=== PATIENT | female | born 1960 | race Caucasian/White ===

== ENCOUNTER 2023-08-18 09:29 | Emergency (ER) | payer BC, SELFPAY ==
[2023-08-18 09:46] VITALS: BP 146/95
--- NOTE | 2023-08-18 12:20 | ED.GENMED ---
History of Present Illness
General
Chief Complaint: Headache
Source: patient
Exam Limitations: none
Time Seen by Provider: 08/18/23 12:04
Nursing documentation reviewed up to this point in time: agreed with
Travel History
Have you had any contact with someone who has COVID-19?: No
Do you have any symptoms of coronavirus? Fever > 100 degrees, chills, cough, shortness of breath, sore throat, loss of taste or smell, muscle aches, or headache?: No
History of Present Illness
History of Present Illness:
Patient to ED wt complaint of migraine. Typical migraine except it is lasting longer. Tried her migraine meds at home without relief. Saw Neuro on Wednesday and she was given 'nerve block' into forehead without improvement. States she hd a
risotomy of her L3, L4 on wednesday. Still with pain to low back. Denies fever/chills, +n/v. Brought to ED by spouse for jing.
Past History
Past History
ED Past Medical History: Hypercholesterolemia and Other (Migraines, kidney stones, chronic back pain)
ED Past Surgical History:
Social History
Tobacco: Non-smoker
Alcohol: None
Drug: None
Personal:
Living: with family
Employment: Employed
Family History
Family History: Hypertension
Review of Systems
Review of Systems
Allergies reviewed?: Yes
All Other Systems: ROS reviewed and negative except as documented in HPI and ROS
Constitutional: Reports no symptoms
EENT: Reports no symptoms
Respiratory: Reports no symptoms
Cardiac: Reports no symptoms
ABD/GI: Reports nausea and vomiting
: Reports no symptoms
Musculoskeletal: Reports back pain (chronic low back pain. Had risotomy on Wednesday, still with pain.)
Skin: Reports no symptoms
Neurological: Reports no symptoms (migraine)
Phy Exam
General Physical Exam
General Presentation: well appearing and moderate distress
General age: appears stated age
General Skin: warm and dry
General Habitus: normal
General Mental: alert
Cardiovascular Exam
Cardiovascular Exam: regular rate/rhythm
Pulmonary Exam
Pulmonary Exam: lungs clear and no respiratory distress
Gastrointestinal Exam
Gastrointestinal Exam: normal bowel sounds, non tender, soft and no organomegaly
Neurological Exam
Neurological Exam: alert, oriented x3, CN II-XII intact, no motor deficits, no sensory deficits and speech normal
Reflexes
Reflexes: +3: Left patellar and +3: Right patellar
Musculoskeletal Exam
Musculoskeletal Exam: back pain (Pain with movement to low bck. History of chronic low back pain) and neuro vasc intact
Skin Exam
Skin Exam: normal color, warm/dry, no rash and other (Risotomy to lumbar region. NO redness swelling tenderness to touch.)
Psychiatric Exam
Psychiatric Exam: normal mood/affect
Course
Orders/Labs/Results
Orders:
Orders
08/18/23 12:07
Complete Blood Count/With Diff Urgent
Comprehensive Metabolic Panel Urgent
Lipase Urgent
08/18/23 12:16
0.9% Sodium Chloride 1000 ml [Nss] 1,000 ml IV BOLUS
Ketorolac [Toradol] 30 mg IV NOW STA
08/18/23 12:19
HYDROmorphone [Dilaudid] 0.5 mg IV NOW STA
08/18/23 12:20
Ondansetron Injectable [Zofran] 4 mg IV NOW STA
08/18/23 14:12
Acetaminophen 1000MG/100Ml [Ofirmev] 1,000 mg in 100 ml IV ONCE
Acetaminophen IV Indication:: No MN & No Enteral Access
08/18/23 15:12
Urinalysis Reflex To Culture Urgent
Date Specimen was Collected: 08/18/23
Time Specimen was Collected: 15:05
08/18/23 15:44
HYDROmorphone [Dilaudid] 0.05 mg IV NOW STA
08/18/23 15:48
HYDROmorphone [Dilaudid] 0.5 mg IV NOW STA
08/18/23 16:23
CT Head W/o Iv Contrast Urgent
Comment:
Reason For Exam: head pain
Dexamethasone Sod Phosphate [Decadron] 10 mg IV NOW STA
Abnormal Lab Results
08/18/23 08/18/23
12:07 15:12
WBC 14.9 H 10^3/uL
(4.8-10.8)
Hgb 17.2 H g/dL
(12.0-16.0)
Hct 47.9 H %
(37.0-47.0)
MCH 32.6 H pg
(27.0-31.0)
MPV 11.0 H fL
(7.4-10.4)
Abs Immat Gran (auto) 0.1 H 10^3/uL
(0-0.05)
Absolute Neuts (auto) 12.1 H 10^3/uL
(1.4-6.5)
Absolute Monos (auto) 1.3 H 10^3/uL
(0.1-0.6)
Neutrophils % 81.2 H %
(42.2-75.2)
Lymphocytes % 9.0 L %
(20.5-51.1)
Sodium 133 L mmol/L
(135-145)
Potassium 3.1 L mmol/L
(3.5-5.1)
Chloride 96 L mmol/L
(98-107)
BUN 29 H mg/dl
(7-17)
Glucose 133 H mg/dl
(70-99)
Total Bilirubin 2.4 H mg/dl
(0.2-1.3)
Urine Ketones Trace A
(Negative)
Urine Bilirubin 1+ A
(Negative)
08/18/23 12:07
08/18/23 12:07
Vital Signs
Initial and Last Documented VS:
Initial Vital Signs
Temp Pulse Resp BP Pulse Ox
98.3 F 59 18 146/95 99
08/18/23 09:46 08/18/23 09:46 08/18/23 09:46 08/18/23 09:46 08/18/23 09:46
Last Documented Vital Signs
Temp Pulse Resp BP Pulse Ox
98.3 F 55 16 142/77 99
08/18/23 09:46 08/18/23 17:00 08/18/23 17:00 08/18/23 17:00 08/18/23 17:00
*Radiology
Radiology exam reviewed: radiology read reviewed
*Pulse Oximetry
Patient hypoxic: no
*Critical Care Note
Total Time (30-74mins, 75-104mins- exclusive of procedures): Not Applicable
Update Note
Update Note:
Improved iwth IVF, pain meds. SHe is discharged home and will follow up with pain management in AM
ED Attending Note
-
Portions of this chart may have been created with voice recognition software.� Occasional wrong word or��sound alike� substitutions may have occurred due to the inherent limitations of voice recognition software.
Discharge Plan
Departure
Patient Disposition: Home (Routine Discharge)
Date of Disposition: 08/18/23
Time of Disposition: 18:35
Patient with high blood pressure during this ER visit?: No
Condition: Good
Covid-19: Not Applicable
Discharge Problem:
Migraine
Instructions: Migraines (DC)
Prescriptions:
New
oxycodone-acetaminophen [Percocet] 5-325 mg tablet
1 - 2 tab PO Q4HPRN PRN (Reason: pain) Qty: 15 0RF
No Action
cetirizine 10 MG tablet
10 mg PO HS
sumatriptan succinate [Imitrex STATdose Pen] 4 MG/0.5 ML pen injector
4 mg SQ DAILYPRN PRN (Reason: headache)
Patient Comments:
alternates with maxalt business specialist
rizatriptan [Maxalt-ASSISTANT FINANCIAL ACCOUNTANT] 10 MG tablet,disintegrating
10 mg PO DAILYPRN PRN (Reason: headaches)
Patient Comments:
alternates with imitrex
levocetirizine [Xyzal] 5 MG tablet
5 mg PO HS
cholecalciferol (vitamin D3) [Vitamin D3] 2,000 UNIT capsule
2,000 unit PO QPM
ondansetron 4 MG tablet,disintegrating
4 mg PO TIDPRN PRN (Reason: nausea/vomiting) Qty: 12 0RF
tramadol 50 MG tablet
50 mg PO Q8H PRN (Reason: moderate pain)
Patient Comments:
08/18/2023: last filled 07/03/23, 36 tabs for 12 days from [facility]#[id number]
diazepam 2 MG tablet
4 mg PO HS
Patient Comments:
08/18/2023: last filled 07/16/23, 60 tabs for 30 days from [facility]#[id number]
atorvastatin [Lipitor] 20 mg Tablet
20 mg PO HS
dihydroergotamine 1 mg/mL Solution
1 mg IM DAILYPRN PRN (Reason: mirgraines)
budesonide 0.5 mg/2 mL suspension for nebulization
0.5 mg inhalation R BIDPRN PRN (Reason: sob)
Aimovig Autoinjector 140 mg/mL auto-injector
140 mg SC DAILYPRN PRN (Reason: mirgraines)
prednisone 20 mg tablet
20 mg PO .TAPER
Rx Instructions:
3 tabs (60mg) daily x 2 days, 2 tabs (40mg) daily x 2 days, 1 tab (20mg) daily x 2 days
oxycodone-acetaminophen 10-325 mg tablet
1 tab PO 5/D PRN (Reason: moderate pain)
Patient Comments:
08/18/2023: last filled 07/20/23, 150 tabs for 30 days from [facility]#[id number]
propranolol 80 mg capsule,extended release 24hr
400 mg PO HS
albuterol sulfate 90 mcg/actuation HFA aerosol inhaler
2 puff INHALATION R Q4 PRN (Reason: sob/wheezing)
Nurtec ODT 75 mg tablet,disintegrating
75 mg PO DAILY PRN (Reason: migraine)
ibuprofen 200 mg tablet
800 mg PO DAILY PRN (Reason: mild pain)
Referrals:
Jonathon Hall MD [Family Provider] - Tomorrow
Interventions
Interventions:
*Risk Screen - Suicide Last Done: 08/18/23 09:46
*General Assessment Last Done: 08/18/23 19:06
*Neglect/Abuse Screening Last Done: 08/18/23 09:46
*ED COVID-19 Vaccine History Last Done: 08/18/23 09:46
*Nursing Disposition Last Done: 08/18/23 19:06
ED- Neurological Assessment Last Done: 08/18/23 12:08
Discharge Date and Time
Discharge Date/Time: 08/18/23 19:06
[2023-08-18 12:27] LABS: % Basophils 0.1 % (0-2); % Eosinophils 0.2 % (0-6); % Immature Granulocytes 0.5 % (0-0.5); % Neutrophils 81.2 % (42.2-75.2); Absolute Immature Granulocytes 0.1 10^3/uL (0-0.05); Absolute Lymphocytes 1.3 10^3/uL (1.2-3.4); Absolute Monocytes 1.3 10^3/uL (0.1-0.6); Absolute Neutrophils 12.1 10^3/uL (1.4-6.5); Hematocrit 47.9 % (37.0-47.0); Hemoglobin 17.2 g/dL (12.0-16.0); Mean Corp Hgb Conc. 35.9 g/dL (33.0-37.0); Mean Corpuscular Hgb 32.6 pg (27.0-31.0); Mean Corpuscular Volume 90.9 fL (81.0-99.0); Nucleated Red Blood Cells % 0 %; Platelet Count 342 10^3/uL (130-400); Red Blood Cell Count 5.27 10^6/uL (4.20-5.40); Red Cell Dist. Width 11.7 % (11.5-14.5); White Blood Cell Count 14.9 10^3/uL (4.8-10.8)
[2023-08-18] MEDS: NSS 1000 IV (12:37)
[2023-08-18] MEDS: ZOFRAN 4 MG IV (12:38)
[2023-08-18] MEDS: TORADOL 30 MG IV (12:38)
[2023-08-18] MEDS: DILAUDID 0.5 MG IV ×2 (12:38→15:51)
[2023-08-18 12:41] LABS: ALT (SGPT) 21 U/L (0-35); AST (SGOT) 17 U/L (14-36); Albumin 4.4 g/dl (3.5-5.0); Alkaline Phosphatase 98 U/L (38-126); Blood Urea Nitrogen 29 mg/dl (7-17); Calcium 9.1 mg/dl (8.4-10.2); Carbon Dioxide 30 mmol/L (22-30); Chloride 96 mmol/L (98-107); Glucose 133 mg/dl (70-99); Lipase 213 U/L (23-300); Potassium 3.1 mmol/L (3.5-5.1); Sodium 133 mmol/L (135-145); Total Bilirubin 2.4 mg/dl (0.2-1.3); Total Protein 7.1 g/dl (6.3-8.2); eGFR > 60.00
[2023-08-18] MEDS: OFIRMEV 100 IV (14:28)
[2023-08-18 15:39] LABS: Urine Albumin Trace (Neg - Trace); Urine Bilirubin 1+ (Negative); Urine Character Clear (Clear); Urine Color Yellow; Urine Glucose Negative (Negative); Urine Ketone Trace (Negative); Urine Leukocyte Negative (Negative); Urine Nitrite Negative (Negative); Urine Occult Blood Negative (Negative); Urine Specific Gravity 1.015 (<1.030); Urine Urobilinogen 1+ (Neg - 1+)
[2023-08-18 17:00] VITALS: BP 142/77
[2023-08-18] MEDS: DECADRON 10 MG IV (17:01)
== END 2023-08-18 19:06 | disposition home or self-care (01) ==
LOC: EMR 09:29
PROVIDERS: Nurse Practitioner; EMERGENCY PHYSICIAN Emergency Medicine; FAMILY PHYSICIAN Family Medicine; OTHER PHYSICIAN Psychiatry & Neurology Neuromuscular Medicine
DX: G43.909 Migraine, unspecified, not intractable, without status migrainosus (principal)
CPT/HCPCS: 99284; 96374; 96375 ×4; 96361; 96376; 70450; 80053; 81003; 83690; 85025

== ENCOUNTER 2023-10-29 02:29 | Inpatient (IN) | payer BC, SELFPAY ==
[2023-10-28 18:20] VITALS: BP 186/135
[2023-10-28 18:34] LABS: % Basophils 0.4 % (0-2); % Immature Granulocytes 0.2 % (0-0.5); % Lymphocytes 10.2 % (20.5-51.1); % Monocytes 7.9 % (1.7-9.3); % Neutrophils 79.3 % (42.2-75.2); Absolute Basophils 0.1 10^3/uL (0-0.2); Absolute Eosinophils 0.3 10^3/uL (0-0.7); Absolute Lymphocytes 1.3 10^3/uL (1.2-3.4); Absolute Neutrophils 10.1 10^3/uL (1.4-6.5); Hematocrit 39.2 % (37.0-47.0); Hemoglobin 13.7 g/dL (12.0-16.0); Mean Corp Hgb Conc. 34.9 g/dL (33.0-37.0); Mean Corpuscular Hgb 32.2 pg (27.0-31.0); Mean Platelet Volume 9.5 fL (7.4-10.4); Nucleated Red Blood Cells % 0 %; Platelet Count 355 10^3/uL (130-400); Red Blood Cell Count 4.26 10^6/uL (4.20-5.40); Red Cell Dist. Width 11.9 % (11.5-14.5); White Blood Cell Count 12.8 10^3/uL (4.8-10.8)
[2023-10-28 18:49] LABS: ALT (SGPT) 40 U/L (0-35); AST (SGOT) 32 U/L (14-36); Albumin 4.2 g/dl (3.5-5.0); Alkaline Phosphatase 168 U/L (38-126); Blood Urea Nitrogen 21 mg/dl (7-17); Carbon Dioxide 26 mmol/L (22-30); Chloride 97 mmol/L (98-107); Glucose 175 mg/dl (70-99); Potassium 3.8 mmol/L (3.5-5.1); Sodium 136 mmol/L (135-145); Total Bilirubin 0.7 mg/dl (0.2-1.3); Total Protein 7.3 g/dl (6.3-8.2); eGFR > 60.00
[2023-10-28 19:00] LABS: Lipase 47 U/L (23-300)
[2023-10-28 19:01] LABS: Troponin I < 0.012 ng/ml
--- NOTE | 2023-10-28 20:43 | ED.GENMED ---
History of Present Illness
<Hortencia Loredo PA-C - Last Filed: 10/29/23 00:55>
General
Chief Complaint: Chest Pain
Source: patient
Exam Limitations: none
Time Seen by Provider: 10/28/23 19:58
Nursing documentation reviewed up to this point in time: agreed with
Travel History
Have you had any contact with someone who has COVID-19?: No
Do you have any symptoms of coronavirus? Fever > 100 degrees, chills, cough, shortness of breath, sore throat, loss of taste or smell, muscle aches, or headache?: No
History of Present Illness
History of Present Illness:
Patient is a 63-year-old female with history of migraines, kidney stones presenting for evaluation of acute onset right upper quadrant abdominal pain. Symptoms presented around 5 PM this evening and have been constant since. Patient describes a
sharp pain in her right upper quadrant wrapping around to her mid back with some radiation to her right shoulder. Patient states pain is significantly worse with deep breaths. This pain has been associated with nausea, but no vomiting. She denies
any fever, chills, urinary symptoms.
Patient denies any recent travel or recent surgeries. Patient has a history of 2 C-sections, but otherwise no other abdominal surgeries.
Patient reports the symptoms appear much different than prior kidney stones
Past History
<Hortencia Loredo PA-C - Last Filed: 10/29/23 00:55>
Past History
ED Past Medical History: Hypercholesterolemia and Other (Migraines, kidney stones, chronic back pain)
ED Past Surgical History:
Social History
Tobacco: Non-smoker
Alcohol: None
Drug: None
Personal:
Living: with family
Employment: Employed
Family History
Family History: Hypertension
Phy Exam
<Hortencia Loredo PA-C - Last Filed: 10/29/23 00:55>
Physical Exam
Physical Exam:
General: In moderate distress due to pain, nontoxic appearing
Vitals: Hypertensive, otherwise vital signs stable; afebrile
HEENT: Atraumatic, normocephalic protecting airway
Neck: appears supple, trachea midline
CV: Regular rate and rhythm, heart sounds normal, no evidence of cyanosis
Resp: Shallow breaths due to discomfort, clear bilaterally without any wheezing; O2 saturation 97 on room
Abd: Moderate tenderness right upper quadrant; non-distended; no CVA tenderness
Extremities: No deformities, no evidence of cyanosis or edema; DP pulses palpable bilaterally
Neuro: alert and oriented; grossly intact
Psych: Normal affect
Skin: Intact, no rashes
Scores
<Hortencia Loredo PA-C - Last Filed: 10/29/23 00:55>
Heart Score for Chest Pain Patients
STEMI patient?: No
History: Slightly or Non-Suspicious
ECG: Normal
Age: >45 - <65 years
Risk Factors: No Risk Factors
Troponin: </= Normal Limit
Heart Score for Chest Pain Patients: 1
Heart Score Risk: 2.5% MACE over next 6 weeks
Course
<Hortencia Loredo PA-C - Last Filed: 10/29/23 00:55>
Orders/Labs/Results
Orders:
Orders
10/28/23 18:16
EKG [Electrocardiogram (*1)] Urgent
Reason for Study: Chest Pain
EKG- Treatment ONCE
10/28/23 18:28
CBC/With Diff [Complete Blood Count/With Diff] Urgent
CMP [Comprehensive Metabolic Panel] Urgent
Lipase Urgent
Troponin I Urgent
10/28/23 20:38
0.9% Sodium Chloride 1000 ml [Nss] 1,000 ml IV BOLUS
Ketorolac [Toradol] 15 mg IV NOW STA
Ondansetron Injectable [Zofran] 4 mg IV NOW STA
US Abdomen Complete/Upper Urgent
Comment:
Reason For Exam: Right upper quadrant pain
10/28/23 20:46
Urinalysis Reflex To Culture Urgent
Date Specimen was Collected: 10/28/23
Time Specimen was Collected: 20:45
Urine Microscopic Reflex Cult Urgent
10/28/23 21:40
HYDROmorphone [Dilaudid] 0.5 mg IV NOW STA
10/28/23 22:02
CT Chest/abd/pelvis Angio W/wo Urgent
Comment: US negative; discussed with attending
Reason For Exam: sharp, pleuritic pain RUQ radiation to back
10/28/23 23:58
Azithromycin 500 mg/250 ml [Zithromax Infusion] 500 mg in 250 ml IV NOW
CefTRIAXone [Rocephin] 1,000 mg IV NOW STA
HYDROmorphone [Dilaudid] 0.5 mg IV NOW STA
10/29/23 00:24
Electrocardiogram (*1) Urgent
Reason for Study: QTc Monitoring
10/29/23 00:28
Ondansetron Injectable [Zofran] 4 mg .ROUTE .STK-MED ONE
Ondansetron Injectable [Zofran] 4 mg IV NOW STA
Abnormal Lab Results
10/28/23 10/28/23
18:28 20:46
WBC 12.8 H 10^3/uL
(4.8-10.8)
MCH 32.2 H pg
(27.0-31.0)
Absolute Neuts (auto) 10.1 H 10^3/uL
(1.4-6.5)
Absolute Monos (auto) 1.0 H 10^3/uL
(0.1-0.6)
Neutrophils % 79.3 H %
(42.2-75.2)
Lymphocytes % 10.2 L %
(20.5-51.1)
Chloride 97 L mmol/L
(98-107)
BUN 21 H mg/dl
(7-17)
Glucose 175 H mg/dl
(70-99)
ALT 40 H U/L
(0-35)
Alkaline Phosphatase 168 H U/L
(38-126)
Urine Ketones Trace A
(Negative)
Urine Bilirubin 1+ A
(Negative)
Leukocyte Esterase Rfl Trace A
(Negative)
Urine Bacteria (Reflex) Few A
(Negative)
10/28/23 18:28
10/28/23 18:28
Vital Signs
Initial and Last Documented VS:
Initial Vital Signs
Temp Pulse Resp BP Pulse Ox
97.9 F 71 17 186/135 97
10/28/23 18:20 10/28/23 18:20 10/28/23 18:20 10/28/23 18:20 10/28/23 18:20
Last Documented Vital Signs
Temp Pulse Resp BP Pulse Ox
100.2 F 96 18 157/88 95
10/28/23 23:56 10/28/23 23:56 10/28/23 23:56 10/28/23 23:56 10/28/23 23:56
<Carlos Clement DO - Last Filed: 10/28/23 21:08>
Orders/Labs/Results
Orders:
Orders
10/28/23 18:16
EKG [Electrocardiogram (*1)] Urgent
Reason for Study: Chest Pain
EKG- Treatment ONCE
10/28/23 18:28
CBC/With Diff [Complete Blood Count/With Diff] Urgent
CMP [Comprehensive Metabolic Panel] Urgent
Lipase Urgent
Troponin I Urgent
10/28/23 20:38
0.9% Sodium Chloride 1000 ml [Nss] 1,000 ml IV BOLUS
Ketorolac [Toradol] 15 mg IV NOW STA
Ondansetron Injectable [Zofran] 4 mg IV NOW STA
US Abdomen Complete/Upper Urgent
Comment:
Reason For Exam: Right upper quadrant pain
10/28/23 20:46
Urinalysis Reflex To Culture Urgent
Date Specimen was Collected: 10/28/23
Time Specimen was Collected: 20:45
Urine Microscopic Reflex Cult Urgent
10/28/23 21:40
HYDROmorphone [Dilaudid] 0.5 mg IV NOW STA
10/28/23 22:02
CT Chest/abd/pelvis Angio W/wo Urgent
Comment: US negative; discussed with attending
Reason For Exam: sharp, pleuritic pain RUQ radiation to back
10/28/23 23:58
Azithromycin 500 mg/250 ml [Zithromax Infusion] 500 mg in 250 ml IV NOW
CefTRIAXone [Rocephin] 1,000 mg IV NOW STA
HYDROmorphone [Dilaudid] 0.5 mg IV NOW STA
10/29/23 00:24
Electrocardiogram (*1) Urgent
Reason for Study: QTc Monitoring
10/29/23 00:28
Ondansetron Injectable [Zofran] 4 mg .ROUTE .STK-MED ONE
Ondansetron Injectable [Zofran] 4 mg IV NOW STA
Abnormal Lab Results
10/28/23 10/28/23
18:28 20:46
WBC 12.8 H 10^3/uL
(4.8-10.8)
MCH 32.2 H pg
(27.0-31.0)
Absolute Neuts (auto) 10.1 H 10^3/uL
(1.4-6.5)
Absolute Monos (auto) 1.0 H 10^3/uL
(0.1-0.6)
Neutrophils % 79.3 H %
(42.2-75.2)
Lymphocytes % 10.2 L %
(20.5-51.1)
Chloride 97 L mmol/L
(98-107)
BUN 21 H mg/dl
(7-17)
Glucose 175 H mg/dl
(70-99)
ALT 40 H U/L
(0-35)
Alkaline Phosphatase 168 H U/L
(38-126)
Urine Ketones Trace A
(Negative)
Urine Bilirubin 1+ A
(Negative)
Leukocyte Esterase Rfl Trace A
(Negative)
Urine Bacteria (Reflex) Few A
(Negative)
10/28/23 18:28
10/28/23 18:28
Vital Signs
Initial and Last Documented VS:
Initial Vital Signs
Temp Pulse Resp BP Pulse Ox
97.9 F 71 17 186/135 97
10/28/23 18:20 10/28/23 18:20 10/28/23 18:20 10/28/23 18:20 10/28/23 18:20
Last Documented Vital Signs
Temp Pulse Resp BP Pulse Ox
100.2 F 96 18 157/88 95
10/28/23 23:56 10/28/23 23:56 10/28/23 23:56 10/28/23 23:56 10/28/23 23:56
<Hortencia Loredo PA-C - Last Filed: 10/29/23 00:55>
MDM/Problems Addressed
Differential Diagnosis Includes:
Cholecystitis, cholelithiasis, choledocholithiasis, cholangitis, nephrolithiasis, doubt PE or ACS
MDM/Problems Addressed:
Patient is 63-year-old female presenting with acute onset right upper quadrant pain with radiation to the back associate with nausea. Pain worse with deep breath. No fever, chills, urinary symptoms, chest pain. Patient is hypertensive�likely due
to pain. Otherwise vital signs are stable, she is afebrile. Exam as above. Patient is significant distress, retching on initial examination. She is moderately tender in the right upper quadrant without any rebound or guarding. Heart rate
regular. Patient taking very shallow breaths due to pain but otherwise clear without any wheezing. Will check basic labs, urinalysis. Will start with abdominal ultrasound�is most suspicious for acute gallbladder pathology. Will start with
Toradol, Zofran. IV fluids
Labs noted. Very mild leukocytosis of 12.8, otherwise signs of mild dehydration. There is minor elevations in ALT and Alk phos. Initial troponin is negative. Lipase normal. Urine shows no signs of infection or blood. Ultrasound pending.
Into reassess patient at bedside. She is still reporting significant amount of pain. Will give 0.5 Dilaudid.
Ultrasound shows no evidence of gallstones, cholecystitis, or other intra-abdominal pathology. Given patient's significant level of discomfort on arrival�will check CTA chest, abdomen, pelvis to rule out any evidence of blood clot, dissection,
other emergent pathology.
CTA shows findings consistent with a right lower lobe pneumonia and associated right parapneumonic pleural effusion. Patient still with significant discomfort and requiring Dilaudid for pain. At this point feel is best to admit patient to
hospitalist for IV antibiotics and pain control. Discussed with hospitalist. Discussed. Patient mated to hospitalist for further management.
Chronic conditions affecting care:
N/A
Acute Exacerbation and/or Progression of Chronic Illness:
N/A
<Hortencia Loredo PA-C - Last Filed: 10/29/23 00:55>
*Radiology
Radiology exam reviewed: preliminary read by ED provider and radiology read reviewed
*Pulse Oximetry
Patient hypoxic: no
*EKG
Interpreted by ED Provider?: Yes
EKG Intrepretation Date: 10/29/23
Interpretation: normal
Rate: normal
Rhythm: sinus
Interval: normal QT interval
Ischemia: no ischemia
*Engineering Drafter Interpretation
Rate: Engineering Drafter- N/A
*Critical Care Note
Total Time (30-74mins, 75-104mins- exclusive of procedures): Not Applicable
<Hortencia Loredo PA-C - Last Filed: 10/29/23 00:55>
Patient Management
Discussion with other providers: Hospitalist
ED Attending Note
<Hortencia Loredo PA-C - Last Filed: 10/29/23 00:55>
-
Portions of this chart may have been created with voice recognition software.� Occasional wrong word or��sound alike� substitutions may have occurred due to the inherent limitations of voice recognition software.
<Carlos Clement DO - Last Filed: 10/28/23 21:08>
ED Attending Note
Patient seen and examined by attending physician: Yes
I performed the substantive portion of visit, reviewed & personally made and approve the management plan that is documented in note by myself or CARLTON.: Yes
I performed a history and physical exam of patient and discussed management with resident, I reviewed resident's note and agree with documented findings and plan of care.: Yes
ED Attending Note:
The patient's pain is primarily localized to the right upper quadrant but does radiate in towards the back/shoulder. Mild leukocytosis noted, she appears uncomfortable. Mild ALT elevation and alk phos is 168 but total bili is normal. Lipase is
normal. She was given Toradol initially but remains to appear uncomfortable. Ultrasound imaging pending.
Discharge Plan
Departure
Patient Disposition: Admit
Date of Disposition: 10/28/23
Time of Disposition: 23:50
Presentation/result/management discussed w/ accepting MD/DO: Hospitalist
Discharge Problem:
Right lower lobe pneumonia
Prescriptions:
No Action
cetirizine 10 MG tablet
10 mg PO HS
sumatriptan succinate [Imitrex STATdose Pen] 4 MG/0.5 ML pen injector
4 mg SQ DAILYPRN PRN (Reason: headache)
Patient Comments:
alternates with maxalt sales agent casualty insurance
rizatriptan [Maxalt-MAINTENANCE PLANNING CLERK] 10 MG tablet,disintegrating
10 mg PO DAILYPRN PRN (Reason: headaches)
Patient Comments:
alternates with imitrex
levocetirizine [Xyzal] 5 MG tablet
5 mg PO HS
cholecalciferol (vitamin D3) [Vitamin D3] 2,000 UNIT capsule
2,000 unit PO QPM
ondansetron 4 MG tablet,disintegrating
4 mg PO TIDPRN PRN (Reason: nausea/vomiting) Qty: 12 0RF
tramadol 50 MG tablet
50 mg PO Q8H PRN (Reason: moderate pain)
Patient Comments:
08/18/2023: last filled 07/03/23, 36 tabs for 12 days from [facility]#[id number]
diazepam 2 MG tablet
4 mg PO HS
Patient Comments:
08/18/2023: last filled 07/16/23, 60 tabs for 30 days from [facility]#[id number]
atorvastatin [Lipitor] 20 mg Tablet
20 mg PO HS
dihydroergotamine 1 mg/mL Solution
1 mg IM DAILYPRN PRN (Reason: mirgraines)
budesonide 0.5 mg/2 mL suspension for nebulization
0.5 mg inhalation R BIDPRN PRN (Reason: sob)
Aimovig Autoinjector 140 mg/mL auto-injector
140 mg SC DAILYPRN PRN (Reason: mirgraines)
prednisone 20 mg tablet
20 mg PO .TAPER
Rx Instructions:
3 tabs (60mg) daily x 2 days, 2 tabs (40mg) daily x 2 days, 1 tab (20mg) daily x 2 days
oxycodone-acetaminophen 10-325 mg tablet
1 tab PO 5/D PRN (Reason: moderate pain)
Patient Comments:
08/18/2023: last filled 07/20/23, 150 tabs for 30 days from [facility]#[id number]
propranolol 80 mg capsule,extended release 24hr
400 mg PO HS
albuterol sulfate 90 mcg/actuation HFA aerosol inhaler
2 puff INHALATION R Q4 PRN (Reason: sob/wheezing)
Nurtec ODT 75 mg tablet,disintegrating
75 mg PO DAILY PRN (Reason: migraine)
ibuprofen 200 mg tablet
800 mg PO DAILY PRN (Reason: mild pain)
oxycodone-acetaminophen [Percocet] 5-325 mg tablet
1 - 2 tab PO Q4HPRN PRN (Reason: pain) Qty: 15 0RF
Referrals:
Jonathon Hall MD [Family Provider] -
Interventions
Interventions:
*Risk Screen - Suicide Last Done: 10/28/23 18:20
*General Assessment Last Done: 10/28/23 18:20
*Neglect/Abuse Screening Last Done: 10/28/23 18:20
ED- Fall Risk Assessment Last Done: 10/28/23 21:10
*ED COVID-19 Vaccine History Last Done: 10/28/23 18:20
ED- Cardiac Assessment Last Done: 10/28/23 21:10
Discharge Date and Time
Print Language: VIET[place]ESE
[2023-10-28 20:57] LABS: Urine Albumin Trace (Neg - Trace); Urine Bilirubin 1+ (Negative); Urine Character Clear (Clear); Urine Color Yellow; Urine Glucose Negative (Negative); Urine Ketone Trace (Negative); Urine Leukocyte Trace (Negative); Urine Nitrite Negative (Negative); Urine Occult Blood Negative (Negative); Urine Specific Gravity 1.025 (<1.030); Urine Urobilinogen Negative (Neg - 1+)
[2023-10-28] MEDS: ZOFRAN 4 MG IV (21:03)
[2023-10-28] MEDS: TORADOL 15 MG IV (21:03)
[2023-10-28] MEDS: NSS 1000 IV (21:04)
[2023-10-28 21:16] LABS: Urine Mucus Few
[2023-10-28 21:17] LABS: Urine Red Blood Cell 0-2 /HPF (0-2)
[2023-10-28 21:18] LABS: Urine Bacteria Few (Negative)
[2023-10-28] MEDS: DILAUDID 0.5 MG IV (22:04)
[2023-10-28 23:56] VITALS: BP 157/88
[2023-10-29] MEDS: DILAUDID 0.5 MG IV ×3 (00:08→21:28)
[2023-10-29] MEDS: ROCEPHIN 1000 MG IV ×2 (00:13→22:12)
[2023-10-29] MEDS: ZITHROMAX INFUSION 250 IV (00:19)
[2023-10-29] MEDS: ZOFRAN 4 MG IV ×2 (00:29→02:58)
--- NOTE | 2023-10-29 01:50 | HPS.HSE ---
Family Physician
-
Family Physician: Jonathon Hall
Chief Complaint
-
Chest Pain / SOB
History of Present Illness
Patient is a 63y F with PMH significant for migraine headaches and chronic sinus disease who presents to ED complaining of R sided chest pain and SOB. Patient states that she has felt mildly fatigued for the past week or so. Today her symptoms
were more severe and she went home early from work. She felt very cold and was lying in bed when she developed R sided chest pain along the lower R rib cage. Patient broke into a sweat and noted significant shortness of breath. She presented to
the ED for further evaluation and treatment.
Patient denies any recent sore throat, cough, fevers, etc. No recent travel and no known sick contacts.
Since her arrival in the ED, patient has also developed a frontal headache consistent with her usual migraines.
Medical History
Past Medical History
Past Medical History: Reports Other
Additional Past Medical History:
Migraine Headaches
Chronic Sinus Disease
Nephrolithiasis
Chronic Back Pain / DDD
Past Surgical History: Reports Other
Additional Past Surgical History:
Sinus Surgery
Ureteroscopy / Lithotripsy
Hysterectomy
L4-5 Rhizotomy
Social History
Tobacco: Non-smoker
Alcohol: Occasional
Drug: None
Personal:
Living: With Family
Family History
Family History: Not pertinent
Allergies / Home Medications
Allergies reflects when Allergies were last updated in [employer].
Home Medications with original date entered in [facility]
Allergy/Medication List:
Allergies
Allergy/AdvReac Type Severity Reaction Status Date / Time
prochlorperazine maleate Allergy lock jaw Verified 08/18/23 09:46
[From Compazine]
trimethobenzamide HCl Allergy lock jaw Verified 08/18/23 09:46
[From Tigan]
Home Medications
cetirizine 10 mg tablet 10 mg PO HS 07/30/11
sumatriptan succinate 4 mg/0.5 mL subcutaneous pen injector (Imitrex STATdose Pen) 4 mg SQ DAILYPRN PRN headache 07/30/11
rizatriptan 10 mg disintegrating tablet (Maxalt-BALLAST CLEANING OPERATOR) 10 mg PO DAILYPRN PRN headaches 10/30/11
cholecalciferol (vitamin D3) 50 mcg (2,000 unit) capsule (Vitamin D3) 2,000 unit PO QPM 04/06/17
levocetirizine 5 mg tablet (Xyzal) 5 mg PO HS 04/06/17
ondansetron 4 mg disintegrating tablet 4 mg PO TIDPRN PRN nausea/vomiting #12 tabs 04/06/17
diazepam 2 mg tablet 4 mg PO HS 06/04/18
atorvastatin 20 mg tablet (Lipitor) 20 mg PO HS 06/05/22
erenumab-aooe 140 mg/mL subcutaneous auto-injector (Aimovig Autoinjector) 140 mg SC DAILYPRN PRN mirgraines 06/05/22
ibuprofen 200 mg tablet 800 mg PO DAILY PRN mild pain 08/18/23
oxycodone-acetaminophen 10 mg-325 mg tablet 1 tab PO 5/D PRN moderate pain 08/18/23
propranolol 80 mg capsule,24 hr,extended release 400 mg PO HS 08/18/23
rimegepant 75 mg disintegrating tablet (Nurtec ODT) 75 mg PO DAILY PRN migraine 08/18/23
Review of Systems
-
History Source: Patient
A 12 point ROS was completed and negative except as noted: Yes
Constitutional: Reports Fatigue and Chills; Denies Fever
EENT: Denies Sore Throat or Runny Nose
Respiratory: Reports Trouble Breathing; Denies Cough or Hemoptysis
Cardiac: Reports Chest Pain and Diaphoresis; Denies Palpitations or Syncope
Abdomen/GI: Denies Abdominal Pain, Nausea, Vomiting or Diarrhea
: Denies Dysuria or Frequency
Musculoskeletal: Denies Joint Pain or Edema
Neurological: Reports Headache; Denies Dizzy
Psych: Denies Depression or Anxiety
Physical Exam
Vital Signs
Vital Signs
Temp Pulse Resp BP Pulse Ox
100.2 F 96 18 157/88 95
10/28/23 23:56 10/28/23 23:56 10/28/23 23:56 10/28/23 23:56 10/28/23 23:56
Physical Exam
General: Other (63y F in mild distress due to headache and chest pain.)
HEENT: Moist mucous membranes, PERRLA and Other (Dysconjugate gaze - chronic / unchanged.)
Respiratory: Other (Coarse inspiratory and expiratory breath sounds over the R base. No wheezing.)
Cardiac: S1/S2 and Regular Rhythm; No Murmur
GI: Soft, Non Tender, Non Distended and Normal Bowel Sounds
Musculoskeletal: No Clubbing, No Cyanosis and No Edema
Neuro: AO x 3 and Nonfocal/grossly intact
Laboratory Results
-
10/28/23 18:28
10/28/23 18:28
Laboratory Results
Total Bilirubin 0.7 mg/dl (0.2-1.3) 10/28/23 18:28
AST 32 U/L (14-36) 10/28/23 18:28
ALT 40 U/L (0-35) H 10/28/23 18:28
Alkaline Phosphatase 168 U/L (38-126) H 10/28/23 18:28
Troponin I < 0.012 ng/ml 10/28/23 18:28
Lipase 47 U/L (23-300) 10/28/23 18:28
Impression/Plan
-
A/P: Patient is a 63y F with PMH significant for migraine headaches who presents to ED complaining of right-sided chest pain and SOB.
RLL Pneumonia
Pleurisy secondary to the above
Parapneumonic Effusion secondary to the above
- Admit for further evaluation and treatment.
- Continue abx for CAP wth ceftriaxone and doxycycline (patient notes allergy to azithro - though no issues with dose given in the ED).
- Supportive care including anti-inflammatories for pain control / pleurisy.
- Follow for clinical improvement.
Migraine Headache with Acute Symptoms
- Imitrex dose now.
- Continue usual outpatient preventative meds and abortive medications (rizatriptan, etc).
- Follow for clinical improvement.
- Consider Neuro evaluation if headaches worsen despite usual treatments.
Chronic Sinus Disease
- Stable. Continue usual outpatient medications.
Chronic Back Pain
- Stable. Continue usual medications including oxycodone PRN pain.
- Follow-up with usual Pain Management doctor as an outpatient.
DVT Prophylaxis: Lovenox
Code Status: Full
[2023-10-29] MEDS: IMITREX 50 MG PO (02:01)
[2023-10-29] MEDS: LR 1000 IV ×2 (02:54→15:39)
[2023-10-29] MEDS: TORADOL 15 MG IV ×4 (02:57→22:11)
[2023-10-29] MEDS: MAXALT MLT (ORALLY DISINTEGRATING) 10 MG PO (03:29)
[2023-10-29 03:53] VITALS: BMI 29.7
[2023-10-29 04:30] VITALS: BP 152/90
[2023-10-29] MEDS: VIBRAMYCIN 260 MG IV ×2 (06:20→19:21)
[2023-10-29 06:54] LABS: Hematocrit 38.5 % (37.0-47.0); Hemoglobin 13.9 g/dL (12.0-16.0); Mean Corp Hgb Conc. 36.1 g/dL (33.0-37.0); Mean Corpuscular Hgb 32.9 pg (27.0-31.0); Red Blood Cell Count 4.23 10^6/uL (4.20-5.40); Red Cell Dist. Width 11.9 % (11.5-14.5); White Blood Cell Count 17.6 10^3/uL (4.8-10.8)
[2023-10-29 07:25] LABS: Mean Platelet Volume 10.1 fL (7.4-10.4); Platelet Count 250 10^3/uL (130-400)
[2023-10-29] MEDS: ROXICODONE 10 MG PO ×2 (07:50→19:24)
[2023-10-29 08:03] VITALS: BP 190/103
[2023-10-29 08:36] LABS: Blood Urea Nitrogen 15 mg/dl (7-17); Calcium 9.6 mg/dl (8.4-10.2); Carbon Dioxide 29 mmol/L (22-30); Chloride 101 mmol/L (98-107); Estimated Creatinine Clearance 83 ml/min; Glucose 133 mg/dl (70-99); Potassium 3.5 mmol/L (3.5-5.1); Sodium 138 mmol/L (135-145); eGFR > 60.00
--- NOTE | 2023-10-29 09:09 | W.PN.HOSP.TC ---
Addendum entered and electronically signed by Kayla Campbell MD 10/29/23 09:39:
texting pharmacy when OK to give more Imitrex
dose of Reglan now instead of zofran, may help migraine
Original Note:
Today's Communication/Plan
-
continue abx for CAP
migraine tx
Assessment / Plan
Assessment / Plan
A/P: Patient is a 63y F with PMH significant for migraine headaches who presents to ED complaining of right-sided chest pain and SOB.
CHEST CTA:
1. Moderate airspace consolidation in the anterior basilar segment of the right lower lobe and smaller airspace consolidations in the posterior and lateral basilar segments most consistent with RIGHT LOWER LOBE PNEUMONIA.
2. SMALL RIGHT PARAPNEUMONIC PLEURAL EFFUSION.
3. Mild left to right mediastinal shift secondary to right lung volume loss.
4. Moderate mosaic attenuation throughout the left lung consistent with obstructive small airways disease.
ABDOMEN and PELVIS CTA:
1. 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
2. Small amount of cholelithiasis.
3. 4.7 mm nonobstructing left upper pole intrarenal calculus.
4. Previous ELIZABETH-BSO.
5. Grade 1 anterolisthesis of L4 on L5 secondary to moderate to severe facet joint arthrosis.
6. Moderate discogenic degenerative disease and severe right-sided facet joint arthrosis at L5/S1.
RUQ US
IMPRESSION:
1. No sonographic evidence for cholelithiasis, acute cholecystitis, or biliary obstruction.
2. 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
RLL Pneumonia
Pleurisy secondary to the above
Parapneumonic Effusion secondary to the above
- Continue abx for CAP wth ceftriaxone and doxycycline (patient notes allergy to azithro - though no issues with dose given in the ED).
- Supportive care including anti-inflammatories for pain control / pleurisy.
- monitor WBC
- scheduled Toradol
- lidocaine patch
Migraine Headache with Acute Symptoms
- s/p Imitrex
- persistent GALLAGHER this AM
- Fioricet x 1 now
- additional triptan this afternoon if needs it (s/p 2 doses this AM)
- scheduled Toradol as above
Chronic Sinus Disease
- Stable. Continue usual outpatient medications.
Chronic Back Pain
- Stable. Continue usual medications including oxycodone PRN pain.
- Follow-up with usual Pain Management doctor as an outpatient.
DVT Prophylaxis: Lovenox
Code Status: Full
Anticipated Discharge: 24 - 48 hours
Subjective/Interval History
-
Date of Service: October 29, 2023
has persistent migraine GALLAGHER
Objective Data
-
Labs:
Laboratory Results
10/29/23 10/29/23
06:32 08:12
WBC 17.6 H
Hgb 13.9
Hct 38.5
Plt Count 250 D
Sodium Cancelled 138
Potassium Cancelled 3.5
Chloride Cancelled 101
Carbon Dioxide Cancelled 29
BUN Cancelled 15
Creatinine Cancelled 0.6
Glucose Cancelled 133 H
Calcium Cancelled 9.6
Vital Signs:
Vital Signs
Temp Pulse Resp BP Pulse Ox
99.3 F 83 20 190/103 95
10/29/23 08:03 10/29/23 08:03 10/29/23 08:03 10/29/23 08:03 10/29/23 08:03
I&O
10/28/23 10/29/23 10/30/23
06:59 06:59 06:59
Intake Total 400 / 400
Balance 400 / 400
Review of Systems
-
History Source: Patient
All other systems: Reviewed and negative
Physical Exam
-
General: Other (appears in distress 2/2 migraine GALLAGHER)
HEENT: PERRLA
Respiratory: Decreased Breath Sounds (right lower lung); Negative Wheezes
Cardiac: Regular Rhythm and S1/S2
GI: Soft and Nontender
Musculoskeletal: No Edema
Skin: Warm and Dry; Negative Rash
Neuro: AO x 3
Psych: Calm
Data Reviewed
-
Diagnostic Radiology: Report Reviewed by me
Labs: Labs Reviewed by me
[2023-10-29] MEDS: PULMICORT 0.5 MG INH (10:14)
[2023-10-29] MEDS: FIORICET 1 TAB PO (10:19)
[2023-10-29] MEDS: REGLAN 10 MG IV ×3 (10:20→22:12)
[2023-10-29] MEDS: LIDOCAINE 4% PATCH 1 PATCH TOPICAL (10:21)
[2023-10-29 14:34] VITALS: BP 130/70
[2023-10-29 15:00] VITALS: BP 128/74
[2023-10-29] MEDS: MAGNESIUM SULFATE 50 IV (16:52)
[2023-10-29 17:07] LABS: Glucose - Point of Care 190 mg/dl (70-99)
[2023-10-29] MEDS: VITAMIN D3 (cholecalciferol) 50 MCG PO (17:55)
[2023-10-29] MEDS: LOVENOX 40 MG SC (17:55)
[2023-10-29 19:50] VITALS: BP 163/88
[2023-10-29] MEDS: FLUSH (NSS) 1 FLUSH IV ×2 (22:11→22:38)
[2023-10-29] MEDS: ZYRTEC 10 MG PO (22:11)
[2023-10-29] MEDS: VALIUM 4 MG PO (22:11)
[2023-10-29] MEDS: LIPITOR 20 MG PO (22:11)
[2023-10-29] MEDS: STERILE WATER FOR INJECTION 10 ML IV (22:12)
[2023-10-29] MEDS: INDERAL LA 400 MG PO (22:24)
[2023-10-29 23:15] VITALS: BP 109/54
[2023-10-30] VITALS (14 sets, daily range): BP systolic 81–181; BP diastolic 60–97; PULSE 78–80; BMI 33.4
[2023-10-30] MEDS: TYLENOL 650 MG PO (00:24)
[2023-10-30] MEDS: IMITREX 6 MG SC ×2 (03:07→10:47)
[2023-10-30] MEDS: TORADOL 15 MG IV ×4 (04:41→21:03)
[2023-10-30] MEDS: LR 1000 IV (04:42)
[2023-10-30] MEDS: REGLAN 10 MG IV (04:42)
[2023-10-30] MEDS: VIBRAMYCIN 260 MG IV ×2 (05:56→18:10)
[2023-10-30 06:36] LABS: % Basophils 0.1 % (0-2); % Eosinophils 0.4 % (0-6); % Immature Granulocytes 0.7 % (0-0.5); % Lymphocytes 4.5 % (20.5-51.1); % Monocytes 9.8 % (1.7-9.3); % Neutrophils 84.5 % (42.2-75.2); Absolute Eosinophils 0.1 10^3/uL (0-0.7); Absolute Immature Granulocytes 0.1 10^3/uL (0-0.05); Absolute Lymphocytes 0.9 10^3/uL (1.2-3.4); Absolute Neutrophils 17.5 10^3/uL (1.4-6.5); Hematocrit 35.5 % (37.0-47.0); Hemoglobin 12.1 g/dL (12.0-16.0); Mean Corp Hgb Conc. 34.1 g/dL (33.0-37.0); Mean Corpuscular Hgb 32.5 pg (27.0-31.0); Mean Corpuscular Volume 95.4 fL (81.0-99.0); Mean Platelet Volume 9.7 fL (7.4-10.4); Nucleated Red Blood Cells % 0 %; Platelet Count 243 10^3/uL (130-400); Red Blood Cell Count 3.72 10^6/uL (4.20-5.40); White Blood Cell Count 20.7 10^3/uL (4.8-10.8)
[2023-10-30 07:01] LABS: Blood Urea Nitrogen 12 mg/dl (7-17); Calcium 8.6 mg/dl (8.4-10.2); Carbon Dioxide 28 mmol/L (22-30); Chloride 101 mmol/L (98-107); Estimated Creatinine Clearance 88 ml/min; Glucose 120 mg/dl (70-99); Magnesium 2.1 mg/dl (1.6-2.3); Sodium 136 mmol/L (135-145); eGFR > 60.00
[2023-10-30] MEDS: PULMICORT INH (08:00)
[2023-10-30] MEDS: FIORICET 1 TAB PO (08:44)
[2023-10-30] MEDS: ROXICODONE 10 MG PO (08:45)
[2023-10-30] MEDS: LIDOCAINE 4% PATCH 1 PATCH TOPICAL (08:45)
--- NOTE | 2023-10-30 09:42 | W.PN.HOSP.TC ---
Today's Communication/Plan
-
broaden antibiotics
repeat CXR
Assessment / Plan
Assessment / Plan
A/P: Patient is a 63y F with PMH significant for migraine headaches who presents to ED complaining of right-sided chest pain and SOB.
CHEST CTA:
1. Moderate airspace consolidation in the anterior basilar segment of the right lower lobe and smaller airspace consolidations in the posterior and lateral basilar segments most consistent with RIGHT LOWER LOBE PNEUMONIA.
2. SMALL RIGHT PARAPNEUMONIC PLEURAL EFFUSION.
3. Mild left to right mediastinal shift secondary to right lung volume loss.
4. Moderate mosaic attenuation throughout the left lung consistent with obstructive small airways disease.
ABDOMEN and PELVIS CTA:
1. 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
2. Small amount of cholelithiasis.
3. 4.7 mm nonobstructing left upper pole intrarenal calculus.
4. Previous ELIZABETH-BSO.
5. Grade 1 anterolisthesis of L4 on L5 secondary to moderate to severe facet joint arthrosis.
6. Moderate discogenic degenerative disease and severe right-sided facet joint arthrosis at L5/S1.
RUQ US
IMPRESSION:
1. No sonographic evidence for cholelithiasis, acute cholecystitis, or biliary obstruction.
2. 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
RLL Pneumonia
Pleurisy secondary to the above
Uncomplicated (small) Parapneumonic Effusion secondary to the above
- with rising WBC and fever to 100.7 overnight, will broad abx from ceftriaxone to Unasyn; continue doxycycline
- repeat CXR
- Supportive care including anti-inflammatories for pain control / pleurisy.
- monitor WBC
- scheduled Toradol
- lidocaine patch
Migraine Headache with Acute Symptoms
- exacerbated in setting of infection
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
Chronic Sinus Disease
- Stable. Continue usual outpatient medications.
Chronic Back Pain
- Stable. Continue usual medications including oxycodone PRN pain.
- Follow-up with usual Pain Management doctor as an outpatient.
DVT Prophylaxis: Lovenox
Code Status: Full
Anticipated Discharge: 24 - 48 hours
Subjective/Interval History
-
Date of Service: October 30, 2023
headache improved but still present
complains of nausea, requesting zofran
continues to have pleuritic pain, lidocaine patch is helping
Objective Data
-
Labs:
Laboratory Results
10/30/23
06:20
WBC 20.7 H
Hgb 12.1
Hct 35.5 L
Plt Count 243
Sodium 136
Potassium 3.0 L
Chloride 101
Carbon Dioxide 28
BUN 12
Creatinine 0.6
Glucose 120 H
Calcium 8.6
Vital Signs:
Vital Signs
Temp Pulse Resp BP Pulse Ox
99.1 F 79 18 131/71 94
10/30/23 07:00 10/30/23 07:00 10/30/23 07:00 10/30/23 07:00 10/30/23 07:00
I&O
10/29/23 10/30/23 10/31/23
06:59 06:59 06:59
Intake Total 400 / 400 120 / 120
Balance 400 / 400 120 / 120
Review of Systems
-
History Source: Patient
All other systems: Reviewed and negative
Physical Exam
-
General: Other (appears in distress 2/2 migraine GALLAGHER)
HEENT: PERRLA
Respiratory: Decreased Breath Sounds (right lower lung); Negative Wheezes
Cardiac: Regular Rhythm and S1/S2
GI: Soft and Nontender
Musculoskeletal: No Edema
Skin: Warm and Dry; Negative Rash
Neuro: AO x 3
Psych: Calm
Data Reviewed
-
Diagnostic Radiology: Report Reviewed by me
Labs: Labs Reviewed by me
[2023-10-30] MEDS: ZOFRAN 4 MG IV (10:47)
[2023-10-30] MEDS: UNASYN IV ×3 (10:48→20:59)
--- NOTE | 2023-10-30 12:33 | W.PN.UPDATE ---
Update Note
Progress Note Update
CXR with worsening parapneumonic effusion
-Display Director and IR consulted, patient will need chest tube
-keep NPO
-patient updated
[2023-10-30] MEDS: LR IV (13:01)
[2023-10-30] MEDS: KCL 270 MEQ IV (13:57)
[2023-10-30] MEDS: KCL 1010 MEQ IV (13:58)
[2023-10-30 16:52] LABS: Body Fluid pH 7.34
[2023-10-30] MEDS: DILAUDID 0.5 MG IV (17:06)
[2023-10-30] MEDS: VITAMIN D3 (cholecalciferol) 50 MCG PO (17:06)
[2023-10-30] MEDS: LOVENOX 40 MG SC (17:07)
[2023-10-30 17:09] LABS: Body Fluid Glucose 91 mg/dl; Body Fluid Protein 3.9 g/dl
[2023-10-30 17:13] LABS: Body Fluid Mononuclear 11.4 %; Body Fluid Polymorphonuclear 88.6 %; Body Fluid WBC 7110 /CUMM
[2023-10-30 17:15] LABS: Body Fluid Second Tech RLT
[2023-10-30 17:39] LABS: Body Fluid LDH 1401 U/L
--- NOTE | 2023-10-30 18:02 | PTCARENOTE ---
Received patient from [facility] following insertion of R chest tube. R chest tube with dressing CDI, no crepitus, draining straw colored fluid. Pt is on 3L NC, SPO2 95%. Lungs coarse on R side, crackles at base of L side. Pt is c/o of 8/10 pain to her
whole torso. Pt reports that the position they had her in for the procedure 'stretched out all my muscles' and all pain medication given so far has not helped. TT to who then called me to give verbal for Dilaudid 1mg IV, see MAR.
Assessment, care and VS as charted.
--- NOTE | 2023-10-30 18:19 | CON.PUL ---
Consultation
Consultation Request
Date/Time Consultation Requested: 10-30-23
Date/Time Consultation Performed: 10-30-23
Requesting Provider: Hospitalist dusty
Performing Provider: Dr Schulte
Reason for Consultation: pleural effusion
Medical History
-
Chief Complaint: dyspnea
History of Present Illness:
Mrs Cassandra Ponce is a 63/W adm 10-27 with several d h/o fatigue, dyspnea and R sided CP. Denied cough, fever, NS, sick contacts, trauma.
Adm CXR with R sided infiltrate/effusion, started on ceftriaxone/doxycycline.
Interim rise in wbc and temp, atbs adjusted to unasyn/doxy. IRad and Pulm consulted 10-29
R chest tube placed by IRad 10-29
No previous h/o pneumonia. No sick contacts. No occupational or environmental exposures. LLNS
Past Medical History
Past Medical History: Other (see A&P for PMH/PSH)
Social History
Tobacco: Non-smoker
Alcohol: Occasional
Drug: None
Personal:
Living: With Family
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
Family History
Family History: Reviewed & Not Pertinent
Allergies / Home Medications
Allergies
Allergy/AdvReac Type Severity Reaction Status Date / Time
prochlorperazine maleate Allergy lock jaw Verified 08/18/23 09:46
[From Compazine]
trimethobenzamide HCl Allergy lock jaw Verified 08/18/23 09:46
[From Tigan]
Home Medications
�Medication �Instructions �Recorded �Confirmed �Last Taken �Type
cetirizine 10 mg tablet 10 mg PO HS Allergies 07/30/11 10/29/23 10/27/23 History
rizatriptan 10 mg disintegrating 10 mg PO DAILYPRN PRN migraines 10/30/11 10/29/23 10/29/23 History
tablet (Maxalt-HEALTH PROFESSIONAL)
levocetirizine 5 mg tablet (Xyzal) 5 mg PO HS Allergies 04/06/17 10/29/23 10/27/23 History
diazepam 2 mg tablet 4 mg PO HS Sleep 06/04/18 10/29/23 10/27/23 History
atorvastatin 20 mg tablet (Lipitor) 20 mg PO HS High Cholesterol 06/05/22 10/29/23 10/27/23 History
erenumab-aooe 140 mg/mL 140 mg SC Q28D Autoimmune Disorder 06/05/22 10/29/23 10/11/23 History
subcutaneous auto-injector
(Aimovig Autoinjector)
ibuprofen 200 mg tablet 800 mg PO DAILY Pain 08/18/23 10/29/23 10/28/23 History
oxycodone-acetaminophen 10 mg-325 1 tab PO 5/D PRN moderate pain 08/18/23 10/29/23 10/28/23 History
mg tablet
propranolol 80 mg capsule,24 400 mg PO HS Blood Pressure 08/18/23 10/29/23 10/27/23 History
hr,extended release
rimegepant 75 mg disintegrating 75 mg PO DAILY PRN migraine 08/18/23 10/29/23 2 Days Ago History
tablet (Nurtec ODT) ~10/27/23
budesonide 0.5 mg/2 mL suspension 0.5 mg irrigation DAILY 10/29/23 10/29/23 10/28/23 History
for nebulization Lung/Breathing Issues
zfnvfezhuh-jttpbtxtvvqhv-qmbttvnz 1 cap PO TID PRN migraine 10/29/23 10/29/23 2 Days Ago History
50 mg-300 mg-40 mg capsule ~10/27/23
cholecalciferol (vitamin D3) 50 50 mcg PO HS Supplement 10/29/23 10/29/23 10/27/23 History
mcg (2,000 unit) tablet
clobetasol-emollient 0.05 % 1 applic topical .2 TIMES A WEEK 10/29/23 10/29/23 1 Week Ago History
topical cream PRN vaginal soreness ~10/22/23
estradiol 0.01% (0.1 mg/gram) 1 g vaginal .2 TIMES A WEEK PRN 10/29/23 10/29/23 1 Week Ago History
vaginal cream vaginal area ~10/22/23
ondansetron 4 mg disintegrating 4 mg PO Q4HPRN PRN nausea/vomiting 10/29/23 10/29/23 10/29/23 History
tablet
polyethylene glycol 3350 17 gram 17 g PO DAILY Constipation 10/29/23 10/29/23 10/28/23 History
oral powder packet (Miralax)
Review of Systems
-
History Source: Patient
All other systems: Negative unless noted
Constitutional: Fatigue
Respiratory: Trouble Breathing
Cardiac: Chest Pain (R)
Neuro: Headache and Weakness
Vitals / Labs / Diagnostic Testing
Vital Signs
Temp Pulse Resp BP Pulse Ox
99.4 F 82 31 166/89 94
10/30/23 16:04 10/30/23 16:15 10/30/23 16:15 10/30/23 16:15 10/30/23 16:15
Lab Data
10/30/23 06:20
10/30/23 06:20
Diagnostic Testing:
Physical Exam
-
HEENT: Normocephalic, Moist Mucous Membranes and Thrush (n)
Cardiovascular: Regular Rhythm, Murmur (n), Peripheral Edema and JVD (n)
Respiratory: Rales (R base), Non-Labored Respirations and Other (R chest tube)
GI: Soft, Non Distended and Non Tender
Neurology: Awake, AO x 3 and No Motor Deficits
Skin: Warm
General: Respiratory Distress (n)
Assessment
-
Assessment:
Mrs Cassandra Ponce is a 63/W adm 10-27 with several d h/o fatigue, dyspnea and R sided CP. Denied cough, fever, NS, sick contacts, trauma. Adm CXR with R sided infiltrate/effusion, started on ceftriaxone/doxycycline. Interim rise in wbc and temp, atbs
adjusted to unasyn/doxy. IRad and Pulm consulted 10-29
Impression:
CAP RLL, RML
Moderate R pleural effusion on CT
Exudate
Leukocytosis
MRSA screening negative
RML bulla
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
Migraine
Chronic sinusitis, s/p surgery 1996 and 2016
Nephrolithiasis, ureteroscopy, lithotripsy
Cholelithiasis
Chronic back pain, L4-5 rhizotomy, DDD
Nonsmoker
Plan:
O2 protocol as needed
Asp precs
Continue atbs: unasyn/doxycycline
Follow R PF results, so far PMN 88%, LDH ^ (exudate), G 91, normal pH. Pending Gstain/cx, cytology
Follow R PF output
Added blood/sputum cx, flu/COVID testing, Leg/Strep UAg
Pain management
Known h/o chronic back pain and migraine: on prn oral opiate/APAP, ibuprofen, butalbital/APAP/caffeine (fioricet) prn, enenumab sc, rimegepant, rizatriptan
On inpatient prn po oxycodone, prn NSAID (ketorolac), IV hydromorphone prn
Reports migraine usually exacerbates severy with intercurrent conditions
Added IV APAP at 1 g q8h, d/w Pharmacist
D/w and Mr Ponce and their daughter at bedside
[2023-10-30] MEDS: OFIRMEV 100 IV (19:54)
--- NOTE | 2023-10-30 20:13 | PTCARENOTE ---
Received pt from [facility]. Pt is AAOx3, anxiety. NSR w/ PVCs on the monitor, LE trace edema. On 3L NC O2 sat 94%, lungs diminished. Right chest tube in place to suction, dressing c/d/i. BSC x1. Pt c/o of GALLAGHER and back pain, PRN pain medication
given (see MAR). IVF infusing @ 100ml/hr. Pt is laying comfortable in bed with call miller in reach.
[2023-10-30] MEDS: VALIUM 4 MG PO (20:59)
[2023-10-30] MEDS: INDERAL LA 400 MG PO (21:00)
[2023-10-30] MEDS: LIPITOR 20 MG PO (21:00)
[2023-10-30] MEDS: ZYRTEC 10 MG PO (21:00)
[2023-10-30] MEDS: NON-FORMULARY ITEM 75 MG PO (21:01)
[2023-10-30] MEDS: FLUSH (NSS) 1 FLUSH IV ×2 (21:15→21:58)
[2023-10-30 21:47] LABS: COVID-19 Antigen Negative (Negative)
[2023-10-30] MEDS: DILAUDID 1 MG IV (21:58)
[2023-10-31] VITALS (17 sets, daily range): BP systolic 117–185; BP diastolic 51–103; PULSE 78–87; BMI 34.1
[2023-10-31] MEDS: ROXICODONE 10 MG PO (00:14)
[2023-10-31] MEDS: DILAUDID 1 MG IV ×4 (00:59→19:40)
[2023-10-31] MEDS: OFIRMEV 100 IV ×2 (04:41→12:08)
[2023-10-31] MEDS: TORADOL 15 MG IV (04:41)
[2023-10-31] MEDS: UNASYN IV ×4 (05:01→21:26)
[2023-10-31] MEDS: KCL 1010 MEQ IV (05:26)
[2023-10-31] MEDS: VIBRAMYCIN 260 MG IV ×2 (05:27→18:19)
[2023-10-31 05:48] LABS: % Basophils 0.2 % (0-2); % Eosinophils 1.2 % (0-6); % Immature Granulocytes 0.7 % (0-0.5); % Lymphocytes 4.6 % (20.5-51.1); % Monocytes 8.9 % (1.7-9.3); % Neutrophils 84.4 % (42.2-75.2); Absolute Eosinophils 0.2 10^3/uL (0-0.7); Absolute Immature Granulocytes 0.1 10^3/uL (0-0.05); Absolute Monocytes 1.8 10^3/uL (0.1-0.6); Absolute Neutrophils 17.6 10^3/uL (1.4-6.5); Hematocrit 32.8 % (37.0-47.0); Hemoglobin 11.6 g/dL (12.0-16.0); Mean Corp Hgb Conc. 35.4 g/dL (33.0-37.0); Mean Corpuscular Hgb 32.5 pg (27.0-31.0); Mean Corpuscular Volume 91.9 fL (81.0-99.0); Mean Platelet Volume 9.9 fL (7.4-10.4); Nucleated Red Blood Cells % 0 %; Platelet Count 265 10^3/uL (130-400); Red Blood Cell Count 3.57 10^6/uL (4.20-5.40); Red Cell Dist. Width 11.9 % (11.5-14.5); White Blood Cell Count 20.8 10^3/uL (4.8-10.8)
[2023-10-31 06:03] LABS: Blood Urea Nitrogen 13 mg/dl (7-17); Calcium 8.7 mg/dl (8.4-10.2); Carbon Dioxide 25 mmol/L (22-30); Chloride 104 mmol/L (98-107); Estimated Creatinine Clearance 89 ml/min; Glucose 110 mg/dl (70-99); Potassium 3.7 mmol/L (3.5-5.1); Sodium 134 mmol/L (135-145); eGFR > 60.00
[2023-10-31] MEDS: PULMICORT INH (07:17)
--- NOTE | 2023-10-31 08:05 | W.PN.HOSP.TC ---
Today's Communication/Plan
-
see plan
Assessment / Plan
Assessment / Plan
A/P: Patient is a 63y F with PMH significant for migraine headaches who presents to ED complaining of right-sided chest pain and SOB found to have initially uncomplicated small parapneumonic effusion. Rising WBC and fevers prompted repeat CXR
with showed increased size effusion now s/p chest tube insertion.
CHEST CTA:
1. Moderate airspace consolidation in the anterior basilar segment of the right lower lobe and smaller airspace consolidations in the posterior and lateral basilar segments most consistent with RIGHT LOWER LOBE PNEUMONIA.
2. SMALL RIGHT PARAPNEUMONIC PLEURAL EFFUSION.
3. Mild left to right mediastinal shift secondary to right lung volume loss.
4. Moderate mosaic attenuation throughout the left lung consistent with obstructive small airways disease.
ABDOMEN and PELVIS CTA:
1. 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
2. Small amount of cholelithiasis.
3. 4.7 mm nonobstructing left upper pole intrarenal calculus.
4. Previous ELIZABETH-BSO.
5. Grade 1 anterolisthesis of L4 on L5 secondary to moderate to severe facet joint arthrosis.
6. Moderate discogenic degenerative disease and severe right-sided facet joint arthrosis at L5/S1.
RUQ US
IMPRESSION:
1. No sonographic evidence for cholelithiasis, acute cholecystitis, or biliary obstruction.
2. Mild enlargement of the right lobe of the liver suggesting a Draryn's morphology which appears unchanged.
RLL Pneumonia
Parapneumonic Effusion
Pleurisy secondary to the above
- with rising WBC and fever to 100.7 overnight, repeat CXR obtained 10/29 with broadening abx from cef/doxy to Unasyn/doxy
- now s/p chest tube insertion on 10/29 by IR
- appreciate Pulmonary consult
- pleural fluid cultures pending
- flu, covid negative; blood cultures pending
- pain control with toradol PRN; dilaudid PRN severe pain (chest tube discomfort - patient has very high tolerance for opiates)
- continue IV Unasyn/Doxy for now. Case briefly discussed with TAMEI ALLEN with this empiric regimen; patient will likely need formal consult in next 1-2 days as formal studies come back and to determine length of time on antibiotics
Migraine Headache with Acute Symptoms
- exacerbated in setting of infection
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
Chronic Sinus Disease
- Stable. Continue usual outpatient medications.
Chronic Back Pain
- Stable. Continue usual medications including oxycodone PRN pain.
- Follow-up with usual Pain Management doctor as an outpatient.
- patient will be up in chair today
DVT Prophylaxis: Lovenox
Code Status: Full
Anticipated Discharge: > 48 hours
Subjective/Interval History
-
Date of Service: October 31, 2023
pain controlled with Dilaudid for chest tube
no fevers overnight
still has mild headache and requesting one more dose imitrex
Objective Data
-
Labs:
Laboratory Results
10/31/23
05:14
WBC 20.8 H
Hgb 11.6 L
Hct 32.8 L
Plt Count 265
Sodium 134 L
Potassium 3.7
Chloride 104
Carbon Dioxide 25
BUN 13
Creatinine 0.5 L
Glucose 110 H
Calcium 8.7
Vital Signs:
Vital Signs
Temp Pulse Resp BP Pulse Ox
98.6 F 74 17 138/51 93
10/31/23 03:20 10/31/23 06:00 10/31/23 06:00 10/31/23 06:00 10/31/23 06:00
I&O
10/30/23 10/31/23 11/01/23
06:59 06:59 06:59
Intake Total 120 / 120 2750 / 2750
Output Total 515 / 515
Balance 120 / 120 2234 / 2234
Review of Systems
-
History Source: Patient
All other systems: Reviewed and negative
Physical Exam
-
General: Other (appears in distress 2/2 migraine GALLAGHER)
HEENT: PERRLA
Respiratory: Decreased Breath Sounds (right lower lung) and Chest Tubes; Negative Wheezes
Cardiac: Regular Rhythm and S1/S2
GI: Soft and Nontender
Musculoskeletal: No Edema
Skin: Warm and Dry; Negative Rash
Neuro: AO x 3
Psych: Calm
Data Reviewed
-
Diagnostic Radiology: Report Reviewed by me
Labs: Labs Reviewed by me
[2023-10-31] MEDS: LIDOCAINE 4% PATCH 1 PATCH TOPICAL (08:15)
[2023-10-31] MEDS: IMITREX 6 MG SC (09:14)
--- NOTE | 2023-10-31 11:49 | VATNOTE ---
Called by PCN to assess pt's IV site, entire forearm swollen, pt c/o mild pain. Pt asking to get up to the restroom, new IV started and infiltrated IVs discontinued. PCN notified of pt's need to use the restroom and asked PCN to elevate and apply
heat to R arm after pt returns to chair.
[2023-10-31] MEDS: KCL IV (12:07)
--- NOTE | 2023-10-31 13:46 | W.PN.PUL3 ---
Today's Communication / Plan
-
O2 protocol
Atbs
R chest tube mgmt
Pain mgmt
Assessment
-
Assessment:
Mrs Cassandra Ponce is a 63/W adm 10-27 with several d h/o fatigue, dyspnea and R sided CP. Denied cough, fever, NS, sick contacts, trauma. Adm CXR with R sided infiltrate/effusion, started on ceftriaxone/doxycycline. Interim rise in wbc and temp, atbs
adjusted to unasyn/doxy. IRad and Pulm consulted 10-29
Impression:
CAP RLL, RML
Moderate R pleural effusion on CT
Exudate
Leukocytosis
MRSA screening negative
RML bulla
Conditions COMMUNITY SUPPORT ASSOCIATE:
Migraine
Chronic sinusitis, s/p surgery 1996 and 2016
Nephrolithiasis, ureteroscopy, lithotripsy
Cholelithiasis
Chronic back pain, L4-5 rhizotomy, DDD
Nonsmoker
Plan:
O2 protocol as needed
O2 2L, POx 93%
Asp precs
IS as tolerated
Continue atbs: unasyn/IV doxycycline
Follow R PF results, so far PMN 88%, LDH ^ (exudate), G 91, normal pH. Gstain negative, cx/cytology pending
Follow R PF output, up to 510 mL as of 6 am this AM
Denies cough, no sputum sample provided
Blood cxs pending
Flu/COVID negative
Leg/Strep UAg negative
F/u CXR with residual R PF, R chest tube tip not at target
IRad following
Pain management
Known h/o chronic back pain and migraine: on prn oral opiate/APAP, ibuprofen, butalbital/APAP/caffeine (fioricet) prn, enenumab sc, rimegepant, rizatriptan
On inpatient prn po oxycodone, prn NSAID (ketorolac), IV hydromorphone prn
Reports migraine usually exacerbates severely with intercurrent conditions
Added IV APAP at 1 g q8h, d/w Pharmacist, continue
OOB as tolerated
D/w and Mr Ponce and their daughter at bedside
D/w Dr Campbell
Subjective Data
-
Date of Service:
Date of Service: October 31, 2023
Chief Complaint: Pulmonary Follow Up
Subjective:
No major events reported overnight
Incisional pain from chest tube on the right side somewhat improved
Started IV Tylenol last night along with opiates and nonsteroidals
Review of Systems
General: Fever (n), Sweats, Chills (n) and Satisfactory Appetite
HEENT: Dysphagia (n)
Cardiopulmonary: Dyspnea (n), Cough (n), Sputum Production (n), Wheezing (n), Chest Pain (incisional) and Edema
GI: Abdominal Pain (n), Nausea (n) and Vomiting (n)
Neuro: Headache and Weakness
Objective Data
Data Reviewed
Vital Signs / I&O / Oxygen:
Vital Signs
Temp Pulse Resp BP Pulse Ox
98.3 F 76 18 157/95 92
10/31/23 11:42 10/31/23 12:10 10/31/23 12:10 10/31/23 12:10 10/31/23 12:10
Intake and Output
10/30/23 10/31/23 11/01/23
06:59 06:59 06:59
Intake Total 120 / 120 2750 / 2750
Output Total 515 / 515
Balance 120 / 120 2235 / 2235
SaO2 92
Nasal Cannula flow liters per 2
minute
Physical Exam
General: Respiratory Distress (n)
HEENT: Normocephalic and Moist Mucous Membranes
Cardiovascular: Regular Rhythm, Murmur (n) and Peripheral Edema (n)
Respiratory: Clear (decreased at R base), Non-Labored Respirations, Stridor (n) and Chest Tube (510 mL of PF at 6 am)
GI: Soft, Non Distended and Non Tender
Neurology: Awake, AO x 3 and No Motor Deficits
Skin: Warm
Labs/Micro/Reports
Lab Data
10/31/23 05:14
10/31/23 05:14
Microbiology
10/30/23 16:25 Pleural Fluid Gram Stain - Preliminary
10/30/23 16:25 Pleural Fluid Fungal Culture - Preliminary
Culture in progress.
Positive cultures are reported as soon as detected.
Final report to follow in four to five weeks.
10/30/23 22:13 Urine Legionella Urinary Antigen - Final
Negative for Legionella pneumophila Serogroup 1 antigen.
A negative result does not rule out the possiblity of
Legionella infection due to other serogroups or species of
Legionella. Clinical correlation is recommended.
10/30/23 22:13 Urine Streptococcus pneumoniae Antigen (M - Final
Negative for Streptococcus pneumoniae antigen.
A negative result does not exclude infection with
Streptococcus pneumoniae. Clinical correlation is
recommended.
10/30/23 21:23 Nasal Swab Influenza Types A & B ([facility]EE) - Final
Negative for Influenza A & B, NAAT
Negative results must be combined with clinical observations
and patient history.
Nucleic Acid Amplification test (NAAT)performed on the
[employer] platform.
[2023-10-31] MEDS: ZOFRAN 4 MG IV (16:40)
--- NOTE | 2023-10-31 18:00 | PTCARENOTE ---
OOB all day, ambulates with assistance. Right lat chest tube to suction as ordered, 35 ml serous output noted today. Dressing changed, sutures intact. Dilaudid IV received x2 this shift, along with Zofran for c/o nausea. She does have dry
heaving intermittently. Poor appetite, had clear liq for breakfast and refusing dinner tonight. Drinking plenty of water. IVF discontinued. Poor IV access VAT aware. BP elevated- relayed to Dr. Campbell today.
[2023-10-31] MEDS: LOVENOX 40 MG SC (18:16)
[2023-10-31] MEDS: VITAMIN D3 (cholecalciferol) 50 MCG PO (18:19)
[2023-10-31] MEDS: FLUSH (NSS) 1 FLUSH IV ×3 (19:39→21:34)
--- NOTE | 2023-10-31 20:22 | PTCARENOTE ---
Received pt from kory RN. Pt is AAOx3, anxiety. NSR on the monitor. On 2L NC O2 sat 94%, lungs diminished/coarse. R chest tube to wall suction, dressing c/d/i. Pt c/o nausea, Zofran not due yet. BRPx1. Pt c/o 02/18 pain at the chest tube site,
PRN pain medication given (see MAR). Pt is laying comfortable in bed with call miller in reach.
[2023-10-31] MEDS: VALIUM 4 MG PO (21:26)
[2023-10-31] MEDS: ZYRTEC 10 MG PO (21:26)
[2023-10-31] MEDS: LIPITOR 20 MG PO (21:26)
[2023-10-31] MEDS: INDERAL LA 400 MG PO (21:26)
[2023-11-01] VITALS (17 sets, daily range): BP systolic 93–167; BP diastolic 53–94; PULSE 75–76; BMI 34.5
[2023-11-01] MEDS: ZOFRAN 4 MG IV ×2 (00:18→08:21)
[2023-11-01] MEDS: DILAUDID 1 MG IV ×5 (00:18→17:57)
[2023-11-01] MEDS: TORADOL 15 MG IV (02:37)
[2023-11-01] MEDS: UNASYN IV ×4 (04:21→20:56)
[2023-11-01 04:43] LABS: % Basophils 0.1 % (0-2); % Eosinophils 1.1 % (0-6); % Immature Granulocytes 0.8 % (0-0.5); % Lymphocytes 3.6 % (20.5-51.1); % Monocytes 9.9 % (1.7-9.3); % Neutrophils 84.5 % (42.2-75.2); Absolute Eosinophils 0.2 10^3/uL (0-0.7); Absolute Immature Granulocytes 0.2 10^3/uL (0-0.05); Absolute Lymphocytes 0.8 10^3/uL (1.2-3.4); Absolute Monocytes 2.1 10^3/uL (0.1-0.6); Absolute Neutrophils 17.7 10^3/uL (1.4-6.5); Hematocrit 33.5 % (37.0-47.0); Hemoglobin 11.4 g/dL (12.0-16.0); Mean Corpuscular Hgb 32.4 pg (27.0-31.0); Mean Corpuscular Volume 95.2 fL (81.0-99.0); Mean Platelet Volume 9.7 fL (7.4-10.4); Nucleated Red Blood Cells % 0 %; Platelet Count 260 10^3/uL (130-400); Red Blood Cell Count 3.52 10^6/uL (4.20-5.40)
[2023-11-01 05:05] LABS: Blood Urea Nitrogen 9 mg/dl (7-17); Calcium 8.4 mg/dl (8.4-10.2); Carbon Dioxide 27 mmol/L (22-30); Chloride 100 mmol/L (98-107); Estimated Creatinine Clearance 90 ml/min; Glucose 115 mg/dl (70-99); Sodium 133 mmol/L (135-145); eGFR > 60.00
[2023-11-01] MEDS: VIBRAMYCIN 260 MG IV (05:17)
[2023-11-01] MEDS: KCL 20 MEQ PO (05:29)
[2023-11-01] MEDS: LIDOCAINE 4% PATCH 1 PATCH TOPICAL (08:20)
--- NOTE | 2023-11-01 08:26 | W.PN.HOSP.TC ---
Today's Communication/Plan
-
New A-Fib: rate control and Heparin Drip
Chest tube
Antibiotics
Discussed extensively case with patient's
Assessment / Plan
Assessment / Plan
Physical Exam
General: Not in acute distress
HEENT: Normocephalic
Respiratory: Decreased Breath Sounds (right lower lung) and Chest Tubes; Negative Wheezes
Cardiac: Regular Rhythm and S1/S2
GI: Soft and Nontender. Positive bowel sounds.
Musculoskeletal: No Edema
Skin: Warm and Dry
Neuro: AAO x 3
Psych: Calm
A/P
Patient is a 63y F with PMH significant for migraine headaches who presents to ED complaining of right-sided chest pain and SOB found to have initially uncomplicated small parapneumonic effusion. Rising WBC and fevers prompted repeat CXR with
showed increased size effusion now s/p chest tube insertion.
CHEST CTA:
1. Moderate airspace consolidation in the anterior basilar segment of the right lower lobe and smaller airspace consolidations in the posterior and lateral basilar segments most consistent with RIGHT LOWER LOBE PNEUMONIA.
2. SMALL RIGHT PARAPNEUMONIC PLEURAL EFFUSION.
3. Mild left to right mediastinal shift secondary to right lung volume loss.
4. Moderate mosaic attenuation throughout the left lung consistent with obstructive small airways disease.
ABDOMEN and PELVIS CTA:
1. 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
2. Small amount of cholelithiasis.
3. 4.7 mm nonobstructing left upper pole intrarenal calculus.
4. Previous ELIZABETH-BSO.
5. Grade 1 anterolisthesis of L4 on L5 secondary to moderate to severe facet joint arthrosis.
6. Moderate discogenic degenerative disease and severe right-sided facet joint arthrosis at L5/S1.
RUQ US
IMPRESSION:
1. No sonographic evidence for cholelithiasis, acute cholecystitis, or biliary obstruction.
2. 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
RLL Pneumonia
Parapneumonic Effusion
Pleurisy secondary to the above
- with rising WBC and fevers, repeat CXR obtained 10/29 with broadening abx from cef/doxy to Unasyn/doxy --> ID consulted--> atypical coverage not needed so Doxycycline
discontinued
- Continue Unasyn
- now s/p chest tube insertion on 10/29 by IR
- appreciate Pulmonary consult
- pleural fluid cultures WITH NO GROWTH SO FAR
- flu, covid negative; blood cultures WITH NO GROWTH SO FAR
- pain control with toradol PRN; dilaudid PRN severe pain (chest tube discomfort - patient has very high tolerance for opiates)
- continue IV Unasyn for now.
- Appreciate pulmonary -- continue to monitor chest tube
New Paroxysmal Atrial Fibrillation
- Continue Cardizem drip, wean as tolerated
- CHADVASC 2
- Heparin Drip started with eventual goal for oral anticoagulation
Migraine Headache with Acute Symptoms
- exacerbated in setting of infection
- continue JOB SUPERINTENDENT regimen; status post Imitrex
Chronic Sinus Disease
- Stable. Continue usual outpatient medications.
Chronic Back Pain
- Stable. Continue usual medications including oxycodone PRN pain.
- Follow-up with usual Pain Management doctor as an outpatient.
DVT Prophylaxis: Heparin Drip
Code Status: Full
Anticipated Discharge: > 48 hours
Subjective/Interval History
-
Date of Service: November 01, 2023
Patient was seen and examined. Her heart rhythm went into atrial fibrillation with RVR this morning, but she denied chest pain, palpitations or shortness of breath at rest.
Objective Data
-
Labs:
Laboratory Results
11/01/23
04:29
WBC 21.0 H
Hgb 11.4 L
Hct 33.5 L
Plt Count 260
Sodium 133 L
Potassium 3.0 L
Chloride 100
Carbon Dioxide 27
BUN 9
Creatinine 0.5 L
Glucose 115 H
Calcium 8.4
Vital Signs:
Vital Signs
Temp Pulse Resp BP Pulse Ox
100.7 F H 81 17 146/74 94
11/01/23 03:36 11/01/23 06:00 11/01/23 06:00 11/01/23 06:00 11/01/23 06:00
I&O
10/31/23 11/01/23 11/02/23
06:59 06:59 06:59
Intake Total 2750 / 2750 4260 / 4260
Output Total 515 / 515 45 / 45
Balance 2235 / 2235 4215 / 4215
[2023-11-01] MEDS: CARDIZEM 125 IV (09:31)
--- NOTE | 2023-11-01 09:35 | PTCARENOTE ---
Tele showed SR/ PACs this am, approx 0840 tele alarming for rates 150s-160s noted AF- Notified provider, EKG obtained.
Currenly IV Diltiazem infusing at 5mg/hr. BP 158/91.
--- NOTE | 2023-11-01 10:30 | VATNOTE ---
Right arm reported infiltrate resolved, no swelling noted.
--- NOTE | 2023-11-01 10:33 | CON.CAR ---
Addendum entered and electronically signed by Gustavo Tyler MD 11/01/23 14:56:
I saw and examined the patient.
The DRILLING SUPERVISOR's note was reviewed and I agree with the note.
Comment: 63 y/o female with migraines, chronic back pain, obesity, and dyslipidemia who is here for evaluation of SOB, fatigue, and right-sided CP who was found to have PNA (getting abx) and parapneumonic effusion s/p chest tube. She is
desaturating to 88-90% on RA, but 'needs a break from oxygen' She was noted to be in new PAF today. She is feeling better, and back in nsr. She is decreased at the bases, rrr, no m/f/g. We discussed this new diagnosis, the plan to limit her
thromboembolic risk. She is a C2V 2 for gender and HTN. She will start heparin given CT but eventual doac. Will ask cm to macdonald. Will get echo.
Original Note:
Consultation
Consultation Request
Date/Time Consultation Requested: 11/01/23914
Date/Time Consultation Performed: 11/01/2345
Requesting Provider: Dr. Najera
Performing Provider: Huong WALTER for Dr. Tyler
Reason for Consultation: AFIB with RVR
Medical History
-
Chief Complaint: SOB, fatigue, right sided CP
History of Present Illness:
63 y/o female with migraines, chronic back pain, obesity, and dyslipidemia who is here for evaluation of SOB, fatigue, and right-sided CP who was found to have PNA (getting abx) and parapneumonic effusion s/p chest tube. We are consulted since she
developed AFIB with RVR this AM. She is not symptomatic, but rates are fast 140's-160's. She was started on diltiazem drip, but no bolus. HR's remain elevated. BP stable. She tells me about 10 years ago she was felt to have HTN, but then was started
on meds and had low blood pressure and passed out, so BP meds stopped. She is on propranolol 400 mg daily for migraines. BP elevated here despite this. She is in no distress at the time of my assessment.
Past Medical History
Past Medical History: Hypercholesterolemia and Other (migraines, chronic back pain, obesity)
Social History
Tobacco: Non-Smoker
Alcohol: Occasional
Family History
Family History: Other (mom with AFIB)
Allergies / Home Medications
Allergy/AdvReac Type Severity Reaction Status Date / Time
prochlorperazine maleate Allergy lock jaw Verified 08/18/23 09:46
[From Compazine]
trimethobenzamide HCl Allergy lock jaw Verified 08/18/23 09:46
[From Tigan]
�Medication �Instructions �Recorded �Confirmed �Type
cetirizine 10 mg tablet 10 mg PO HS Allergies 07/30/11 10/29/23 History
rizatriptan 10 mg disintegrating 10 mg PO DAILYPRN PRN migraines 10/30/11 10/29/23 History
tablet (Maxalt-FOREST ECOLOGIST)
levocetirizine 5 mg tablet (Xyzal) 5 mg PO HS Allergies 04/06/17 10/29/23 History
diazepam 2 mg tablet 4 mg PO HS Sleep 06/04/18 10/29/23 History
atorvastatin 20 mg tablet (Lipitor) 20 mg PO HS High Cholesterol 06/05/22 10/29/23 History
erenumab-aooe 140 mg/mL 140 mg SC Q28D Autoimmune Disorder 06/05/22 10/29/23 History
subcutaneous auto-injector
(Aimovig Autoinjector)
ibuprofen 200 mg tablet 800 mg PO DAILY Pain 08/18/23 10/29/23 History
oxycodone-acetaminophen 10 mg-325 1 tab PO 5/D PRN moderate pain 08/18/23 10/29/23 History
mg tablet
propranolol 80 mg capsule,24 400 mg PO HS Blood Pressure 08/18/23 10/29/23 History
hr,extended release
rimegepant 75 mg disintegrating 75 mg PO DAILY PRN migraine 08/18/23 10/29/23 History
tablet (Nurtec ODT)
budesonide 0.5 mg/2 mL suspension 0.5 mg irrigation DAILY 10/29/23 10/29/23 History
for nebulization Lung/Breathing Issues
wvjmtqgbjw-bapfgoxndwian-dqlwpumi 1 cap PO TID PRN migraine 10/29/23 10/29/23 History
50 mg-300 mg-40 mg capsule
cholecalciferol (vitamin D3) 50 50 mcg PO HS Supplement 10/29/23 10/29/23 History
mcg (2,000 unit) tablet
clobetasol-emollient 0.05 % 1 applic topical .2 TIMES A WEEK 10/29/23 10/29/23 History
topical cream PRN vaginal soreness
estradiol 0.01% (0.1 mg/gram) 1 g vaginal .2 TIMES A WEEK PRN 10/29/23 10/29/23 History
vaginal cream vaginal area
ondansetron 4 mg disintegrating 4 mg PO Q4HPRN PRN nausea/vomiting 10/29/23 10/29/23 History
tablet
polyethylene glycol 3350 17 gram 17 g PO DAILY Constipation 10/29/23 10/29/23 History
oral powder packet (Miralax)
Review of Systems
-
History Source: Patient
All other systems: Negative unless noted
Constitutional: Fatigue
Respiratory: Trouble Breathing
Cardiac: Chest Pain (pleuritic)
Physical Exam
Vital Signs
Temp Pulse Resp BP Pulse Ox
98.8 F 144 26 158/91 93
11/01/23 07:25 11/01/23 08:52 11/01/23 08:52 11/01/23 08:52 11/01/23 08:52
Lab Results
11/01/23 04:29
11/01/23 04:29
Troponin I < 0.012 ng/ml 10/28/23 18:28
Physical Exam
General: Well Developed, Well Nourished and No Apparent Distress
HEENT: Normocephalic and Anicteric
Respiratory: Wheezes and Other (on O2 by NC)
Cardiac: Irregular Rhythm
Skin: Warm and Dry
Neuro: AO x 3
Psych: Calm
Impression / Plan
-
Pneumonia:
-on ABX
-parapneumonic effusion with CT in place
-management per primary/pulm team
AFIB with RVR: paroxysmal, noted since this AM
-in setting of acute illness
-diltiazem drip started- continue - this requires intensive monitoring - will give a bolus now since still fast, no bolus given at start of drip
-[id number] score 2 (female, appears to have HTN - BP's up despite propranolol 400 mg for migraines)- would start heparin drip for now (since patient with CT and will need removal)- eventual PO OAC
-echo when HR better (place in for AM)
-TSH
Hypokalemia:
-replace and monitor
Dyslipidemia:
-stable per patient
-on Lipitor
Migraines:
-on propranolol
Data Reviewed
-
EKG: Tracing Personally Visualized and interpreted
Radiology: Report Reviewed by me (CXR: Large partially loculated right-sided pleural effusion increased in volume compared with the 10/28/2023 CT examination associated with compressive atelectasis in the lower right lung)
Medical Tests (Nuc Med, Echo etc): Other (ordered)
Labs: Labs Reviewed by me
--- NOTE | 2023-11-01 10:50 | W.PN.PUL3 ---
Today's Communication / Plan
-
Monitor chest tube output
Daily chest x-ray
Continue antibiotics
Atrial fibrillation per primary/cardiology
Assessment
-
Assessment:
Mrs Cassandra Ponce is a 63/W adm 10-27 with several d h/o fatigue, dyspnea and R sided CP. Denied cough, fever, NS, sick contacts, trauma. Adm CXR with R sided infiltrate/effusion, started on ceftriaxone/doxycycline. Interim rise in wbc and temp, atbs
adjusted to unasyn/doxy. IRad and Pulm consulted 10-29
Impression:
CAP RLL, RML
Complicated parapneumonic moderate R pleural effusion on CT
Exudate/culture negative
Leukocytosis
MRSA screening negative
RML bulla
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
Migraine
Chronic sinusitis, s/p surgery 1996 and 2016
Nephrolithiasis, ureteroscopy, lithotripsy
Cholelithiasis
Chronic back pain, L4-5 rhizotomy, DDD
Nonsmoker
Plan:
Continue to follow chest tube output
Only 45 cc reported
Straw-colored fluid
Cultures negative
Chest x-ray 11/01/2023: Reviewed, improved pleural effusion. Persistent right sided infiltrate.
Chest tube without air leak.
-
Continue current antibiotics
Leg/Strep UAg negative
Continue to follow cultures
Pleural fluid cytology pending
Status chest tube insertion 10/30/2023:
Follow R PF results, so far PMN 88%, LDH ^ (exudate), G 91, normal pH. Gstain negative, cx/cytology pending
Follow R PF output, up to 510 mL as of 6 am this AM
Daily chest x-ray
If output not significant and pleural effusion improve then will consider discontinuation of chest tube in the next 24 to 48 hours.
New onset atrial fibrillation. Heart rate in the 120s-130s per
Denies any chest pain
Management per cardiology.
-
Pain management
Known h/o chronic back pain and migraine: on prn oral opiate/APAP, ibuprofen, butalbital/APAP/caffeine (fioricet) prn, enenumab sc, rimegepant, rizatriptan
On inpatient prn po oxycodone, prn NSAID (ketorolac), IV hydromorphone prn
Reports migraine usually exacerbates severely with intercurrent conditions
Management per primary team.
OOB as tolerated
Dr. Hernandez updated at the bedside 11/01/2023.
Subjective Data
-
Date of Service:
Date of Service: November 01, 2023
Chief Complaint: Pulmonary Follow Up
Subjective:
This morning went into atrial fibrillation
Denies palpitations or chest pain
Denies shortness of breath at rest
No significant phlegm production or hemoptysis
Review of Systems
Cardiopulmonary: Dyspnea (none at rest), Cough (n) and Sputum Production
GI: Abdominal Pain (n) and Nausea (n)
Objective Data
Data Reviewed
Vital Signs / I&O / Oxygen:
Vital Signs
Temp Pulse Resp BP Pulse Ox
98.8 F 144 26 158/91 93
11/01/23 07:25 11/01/23 08:52 11/01/23 08:52 11/01/23 08:52 11/01/23 08:52
Intake and Output
10/31/23 11/01/23 11/02/23
06:59 06:59 06:59
Intake Total 2750 / 2750 4260 / 4260
Output Total 515 / 515 45 / 45
Balance 2235 / 2235 4215 / 4215
SaO2 93
Nasal Cannula flow liters per 2
minute
Physical Exam
General: Respiratory Distress (n)
HEENT: Normocephalic and Moist Mucous Membranes
Cardiovascular: Regular Rhythm, Murmur (n) and Peripheral Edema (n)
Respiratory: Clear (decreased at R base), Non-Labored Respirations, Stridor (n) and Chest Tube (No early, straw-colored fluid noted.)
GI: Soft, Non Distended and Non Tender
Neurology: Awake, AO x 3 and No Motor Deficits
Skin: Warm
Labs/Micro/Reports
Lab Data
11/01/23 04:29
11/01/23 04:29
Microbiology
10/30/23 16:25 Pleural Fluid Body Fluid Culture - Preliminary
No Growth After 18-24 Hours
10/30/23 16:25 Pleural Fluid Gram Stain - Preliminary
10/30/23 22:05 Blood/Venous Blood Culture - Preliminary
No Growth in 24 hours- Final report to follow
10/30/23 21:23 Blood/Venous Blood Culture - Preliminary
No Growth in 24 hours- Final report to follow
10/30/23 14:01 Nose MRSA Screen - Final
No Methicillin Resistant Staphylococcus aureus isolated.
10/30/23 16:25 Pleural Fluid Fungal Culture - Preliminary
Culture in progress.
Positive cultures are reported as soon as detected.
Final report to follow in four to five weeks.
10/30/23 22:13 Urine Legionella Urinary Antigen - Final
Negative for Legionella pneumophila Serogroup 1 antigen.
A negative result does not rule out the possiblity of
Legionella infection due to other serogroups or species of
Legionella. Clinical correlation is recommended.
10/30/23 22:13 Urine Streptococcus pneumoniae Antigen (M - Final
Negative for Streptococcus pneumoniae antigen.
A negative result does not exclude infection with
Streptococcus pneumoniae. Clinical correlation is
recommended.
10/30/23 21:23 Nasal Swab Influenza Types A & B ([facility]) - Final
Negative for Influenza A & B, NAAT
Negative results must be combined with clinical observations
and patient history.
Nucleic Acid Amplification test (NAAT)performed on the
[employer] platform.
[2023-11-01] MEDS: KCL 40 MEQ PO (10:55)
--- NOTE | 2023-11-01 11:00 | PTCARENOTE ---
IV Cardizem titrated to 15mg/hr per protocol. AF rates continue 140s-170. BP 140s/100
[2023-11-01] MEDS: CARDIZEM CD 120 MG PO (12:59)
[2023-11-01] MEDS: NON-FORMULARY ITEM 75 MG PO (13:11)
--- NOTE | 2023-11-01 13:17 | CON.ID ---
Consultation
-
Date/Time Consultation Requested: 11/01/23 9:20
Date/Time Consultation Performed: 11/01/23 13:17
Requesting Provider: Dr Kan
Performing Provider: Dr Ramsay
Reason for Consultation: Sepsis from Pneumonia, still with fevers, leukocytosis
Chief Complaint / Past History
Chief Complaint
Chest Pain / SOB
History of Present Illness
Ms Ponce is a 63 year old female with history of recurrent sinusitis, obesity who presented here 10/28 for right sided chest pain and shortness of breath. Symptoms started with fatigue about one week prior to arrival. Developed chills on the day of
admission and left work; the noted new onset of right sided chest pain, shortness of breath and sweats. No: recent sore throat, cough, fevers, travel or known sick contacts. Also with a frontal headache. No sick contacts or trauma.
Since arrival here she has been spiking fevers to Tmax of 100.7 initially seemed to resolve for about 48 hours then with relapse early this AM. BPs have been running hypertensive, she has been intermittently tachycardic to 160s currently running
80s, wbc on arrival 12.8, today 21, hgb 11.4, plt 260, L shift stable and persisted last 3 days around 85%, eos are present, cr 0.5, k 3.0, t bili 0.7, ast 32, alt 40, alk phos 168, UA negative, pleural fluid: 7.3, wbc 7,000, PMNs 89%, glucose 91,
protein 3.9, LDH 1400, - exudative effusion, body fluid is no growth at 18-24 hrs, blood cultures are no growth at 24 hours, legionella/strap pneumo urine antigens neg, influenza/covid neg, patient was initially on ceftriaxone and azithromycin then
switched to doxycylcine, then 10/29 switched to unasyn/doxycycline and is currently on unasyn and doxycycline was added today, path is pending, chest tube was initially placed and emain in place, CT c/a/p angio: RLL pneumonia and parapneumonic
effusion. Chest tube output 120 ccs yesterday and over 400 ccs the day before; it was placed 10/29.
Past History
Additional Past Medical History:
Migraine Headaches
Chronic Sinus Disease
Nephrolithiasis
Chronic Back Pain / DDD
Additional Past Surgical History:
ELIZABETH-BSO
Sinus Surgery
Ureteroscopy / Lithotripsy
L4-5 Rhizotomy
Allergy History:
prochlorperazine maleate [From Compazine] Allergy (Verified 08/18/23 09:46)
lock jaw
trimethobenzamide HCl [From Tigan] Allergy (Verified 08/18/23 09:46)
lock jaw
Medications Reviewed: Yes
Social History
Tobacco: Non-Smoker
Alcohol: Occasional
Drug: None
Family History
Family History: Not Pertinent
Review of Systems
Review of Systems
General: Fever and Chills
All systems: All other systems were reviewed and were negative
Vital Signs
Temp Pulse Resp BP Pulse Ox
98.8 F 85 14 150/84 91
11/01/23 07:25 11/01/23 12:39 11/01/23 12:39 11/01/23 12:39 11/01/23 11:52
Physical Exam
Physical Exam
Constitutional: No Acute Distress and Obese
Cardiovascular: Regular Rate and S1/S2; Negative Murmur or Rub
Pulmonary: Clear and Other (diminished at the R base); Negative Symmetric, Wheezes, Rales or Rhonchi
Gastrointestinal: Soft, Non Tender, Non Distended and Normal Bowel Sounds
Skin: Warm and Dry; Negative Rash or Jaundice
Lines: Other (chest tube right)
Lab / Diagnostic Study Results
11/01/23 04:29
Abs Immat Gran (auto) 0.2 10^3/uL (0-0.05) H 11/01/23 04:29
Absolute Neuts (auto) 17.7 10^3/uL (1.4-6.5) H 11/01/23 04:29
Absolute Lymphs (auto) 0.8 10^3/uL (1.2-3.4) L 11/01/23 04:29
Absolute Monos (auto) 2.1 10^3/uL (0.1-0.6) H 11/01/23 04:29
Absolute Basos (auto) 0.0 10^3/uL (0-0.2) 11/01/23 04:29
Immature Gran % 0.8 % (0-0.5) H 11/01/23 04:29
Neutrophils % 84.5 % (42.2-75.2) H 11/01/23 04:29
Lymphocytes % 3.6 % (20.5-51.1) L 11/01/23 04:29
Monocytes % 9.9 % (1.7-9.3) H 11/01/23 04:29
Eosinophils % 1.1 % (0-6) 11/01/23 04:29
Basophils % 0.1 % (0-2) 11/01/23 04:29
Ur Squamous Epith Cells 11-15 /LPF (Few) 10/28/23 20:46
Microbiology Results
Micro:
10/30/23 16:25 Body Fluid Culture - Preliminary
Pleural Fluid No Growth After 18-24 Hours
Gram Stain - Preliminary
10/30/23 22:05 Blood Culture - Preliminary
Blood/Venous No Growth in 24 hours- Final report to follow
10/30/23 21:23 Blood Culture - Preliminary
Blood/Venous No Growth in 24 hours- Final report to follow
10/30/23 14:01 MRSA Screen - Final
Nose No Methicillin Resistant Staphylococcus aureus isolated.
10/30/23 16:25 Fungal Smear - Pending
Pleural Fluid Fungal Culture - Preliminary
Culture in progress.
Positive cultures are reported as soon as detected.
Final report to follow in four to five weeks.
10/30/23 22:13 Legionella Urinary Antigen - Final
Urine Negative for Legionella pneumophila Serogroup 1 antigen.
A negative result does not rule out the possiblity of
Legionella infection due to other serogroups or species of
Legionella. Clinical correlation is recommended.
Streptococcus pneumoniae Antigen (M - Final
Negative for Streptococcus pneumoniae antigen.
A negative result does not exclude infection with
Streptococcus pneumoniae. Clinical correlation is
recommended.
10/30/23 21:23 Influenza Types A & B (AMEE) - Final
Nasal Swab Negative for Influenza A & B, NAAT
Negative results must be combined with clinical observations
and patient history.
Nucleic Acid Amplification test (NAAT)performed on the
[employer] platform.
Assessment / Plan
Exudative Pleural Effusion - complicated
Pneumonia
Fever - low grade
Leukocytosis - overall stable
- pleural fluid no growth to date
- blood cultures x2 no growth to date
- MRSA screen - negative
- has drainage with chest tube - brisk output, this is effective source control; it was placed 4pm 10/29, suspect fevers and leukocytosis will continue to resolve with source control
- agree with unasyn
- atypical coverage not needed - stopped doxycycline
- follow clinically - would continue the present course
Recurrent Sinusitis
- check immunoglobulins
--- NOTE | 2023-11-01 13:30 | PTCARENOTE ---
Rhythm converted to SR 85/ occasional PAC- d/w providers- IV Cardizem has been weaned off and po dose received.
Pt has been oob to bedside commode and recliner for about 1 hour- now back in bed- obtaining pre heparin labs then will start heparin IV.
[2023-11-01 13:52] LABS: Hematocrit 35.4 % (37.0-47.0); Hemoglobin 12.2 g/dL (12.0-16.0); Mean Corp Hgb Conc. 34.5 g/dL (33.0-37.0); Mean Corpuscular Hgb 32.6 pg (27.0-31.0); Mean Corpuscular Volume 94.7 fL (81.0-99.0); Mean Platelet Volume 9.7 fL (7.4-10.4); Platelet Count 309 10^3/uL (130-400); Red Blood Cell Count 3.74 10^6/uL (4.20-5.40); Red Cell Dist. Width 12.2 % (11.5-14.5); White Blood Cell Count 20.9 10^3/uL (4.8-10.8)
[2023-11-01 14:06] LABS: APTT 27.6 Sec (23.4-35.0)
[2023-11-01] MEDS: HEPARIN 4000 UNITS IV (14:24)
[2023-11-01] MEDS: HEPARIN 25000 UNITS/250 ML IV (14:25)
[2023-11-01 15:00] LABS: C-Reactive Protein > 270.00 mg/L (0.0-10.00)
[2023-11-01 15:06] LABS: Erythrocyte Sed Rate 99 mm/hour (0-20)
--- NOTE | 2023-11-01 17:03 | CM ---
Addendum entered by Rolanda Pisano RN 11/01/23 17:19:
Patient has chest tube.
Original Note:
Patient with Dx RLL Pneumonia, Parapneumonic Effusion, Migraine Headache. O2 2L. Receiving IV Abx. Per nurse assessment; OOB chair.
Spoke with patient who resides with her in a 2 story house with 1 + 2 ODELL.
The patient has been independent in ADLs and ambulation without using any assistive devices.
DME - [facility], [facility]
No prior VN or SNF.
PCP - Pia Joseph
Pharmacy - [facility]
CM Consult: macdonald check Eliquis 5mg BID
Spoke with pharmacist, [facility]; Eliquis cost $339.16/month as probably has not met her deductible
Spoke with patient about current cost of Eliquis; she feels she has probably not met her deductible for this year. Explained/offered Eliquis Copay Card and patient is ok with taking the Eliquis.
Message to SABA Spicer & Dr Najera patient ok with Eliquis cost.
Plan issue Eliquis Copay Card.
Plan home.
[2023-11-01] MEDS: VITAMIN D3 (cholecalciferol) 50 MCG PO (17:08)
--- NOTE | 2023-11-01 18:02 | PTCARENOTE ---
C/o pain 6-02/18 head and right thorax site - IV Dilaudid administered x3 this shift. IV Zofran given once this am. Appetite somewhat improved this pm but still only tolerating clear liquids at her discretion. Remains in NSR, occ. PAC.
Trialed off O2 today- sao2 87%, placed back on O2 2L 92-93%.
CT right side no output this shift, system checked. Dressing CDI.
IV Heparin infusing at 950units/hr. Intermittent IV antibiotics.
[2023-11-01] MEDS: FLUSH (NSS) 1 FLUSH IV (20:28)
--- NOTE | 2023-11-01 20:48 | PTCARENOTE ---
Received pt from kory RN. Pt on Heparin gtt @ 950 units/hr (see worklist). Pt c/o pain at chest tube site and her head, PRN pain medication given (see MAR). VSS. Pt is laying in bed with call miller in reach.
[2023-11-01] MEDS: INDERAL LA 400 MG PO (20:55)
[2023-11-01] MEDS: LIPITOR 20 MG PO (20:56)
[2023-11-01] MEDS: VALIUM 4 MG PO (20:56)
[2023-11-01] MEDS: ZYRTEC 10 MG PO (20:56)
[2023-11-01 21:20] LABS: APTT 81.1 Sec (23.4-35.0)
[2023-11-01 21:22] LABS: Blood Urea Nitrogen 11 mg/dl (7-17); Calcium 8.7 mg/dl (8.4-10.2); Carbon Dioxide 29 mmol/L (22-30); Chloride 99 mmol/L (98-107); Estimated Creatinine Clearance 90 ml/min; Glucose 110 mg/dl (70-99); Potassium 3.5 mmol/L (3.5-5.1); Sodium 132 mmol/L (135-145); eGFR > 60.00
[2023-11-02] VITALS (10 sets, daily range): BP systolic 91–160; BP diastolic 46–123; BMI 34.6
[2023-11-02] MEDS: DILAUDID 1 MG IV ×7 (02:40→22:26)
[2023-11-02 03:22] LABS: APTT 163.6 Sec (23.4-35.0)
[2023-11-02 03:49] LABS: Blood Urea Nitrogen 10 mg/dl (7-17); Calcium 8.7 mg/dl (8.4-10.2); Carbon Dioxide 26 mmol/L (22-30); Chloride 99 mmol/L (98-107); Estimated Creatinine Clearance 90 ml/min; Glucose 94 mg/dl (70-99); Potassium 3.3 mmol/L (3.5-5.1); Sodium 135 mmol/L (135-145); eGFR > 60.00
[2023-11-02 04:07] LABS: C-Reactive Protein > 270.00 mg/L (0.0-10.00)
[2023-11-02] MEDS: UNASYN IV ×4 (04:41→22:26)
[2023-11-02] MEDS: FIORICET 1 TAB PO (04:44)
[2023-11-02] MEDS: KCL 40 MEQ PO (05:17)
[2023-11-02] MEDS: CARDIZEM CD 120 MG PO (08:14)
[2023-11-02] MEDS: LIDOCAINE 4% PATCH 1 PATCH TOPICAL (08:15)
--- NOTE | 2023-11-02 08:20 | W.PN.CD ---
Today's Communication / Plan
-
echo
continue heparin gtt during ct management then transition to po doac
if Echo normal will arrange follow up and sign off
Impression / Plan
-
Pneumonia:
-on ABX
-parapneumonic effusion with CT in place
-management per primary/pulm team
AFIB with RVR: paroxysmal, noted since this AM
-in setting of acute illness
-Diltiazem added, already on high dose bb
-[id number] score 2 (female, appears to have HTN - BP's up despite propranolol 400 mg for migraines)- continue heparin drip for now (since patient with CT and will need removal)- transition to DOAC when able
-CM c/s to macdonald Eliquis
-echo today
Hypokalemia:
-replace and monitor
Dyslipidemia:
-stable per patient
-on Lipitor
Migraines:
-on propranolol
Subjective:
back hurts but no cp or sob. no palpitaitons.
Physical Exam
Vital Signs/Labs
Vital Signs
Temp Pulse Resp BP Pulse Ox
98.3 F 80 23 137/63 89
11/02/23 08:00 11/02/23 06:00 11/02/23 06:00 11/02/23 06:00 11/02/23 06:00
11/01/23 11/02/23 11/03/23
06:59 06:59 06:59
Actual Weight 80.1 kg 80.3 kg
11/01/23 13:35
11/02/23 03:00
APTT 163.6 Sec (23.4-35.0) H* 11/02/23 03:00
Magnesium 2.1 mg/dl (1.6-2.3) 10/30/23 06:20
Physical Exam
Constitutional: No acute distress
Cardiovascular: Rhythm & rate is regular, Pedal edema is absent, JVD pressure is normal, Systolic murmur absent and Diastolic murmur absent
Respiratory: Respiratory effort normal, Lungs clear to auscul., Wheeze Absent, Crackles Absent and Rhonchi Absent
Neuro/Psych: AO x 3
Data Reviewed
-
Date of Service: November 02, 2023
EKG: Other (tele sinus)
Medical Tests (PFT, Pathology etc): Discussed with Physician (start doac when ct out) and Discussed with Nurse (echo today)
[2023-11-02] MEDS: ZOFRAN 4 MG IV ×2 (09:42→16:11)
--- NOTE | 2023-11-02 10:01 | W.PN.ID1 ---
Date of Service
Date of Service: November 02, 2023
Today's Communication
continue unasyn
Assessment / Plan
Exudative Pleural Effusion - complicated
Pneumonia
Fever - resolved
Leukocytosis - overall stable
- hasnt produced a sputum
- pleural fluid no growth to date
- blood cultures x2 no growth to date
- has drainage with chest tube - output may be dropping off, management per pulmonary/IR
- continue with unasyn
- follow clinically - would continue the present course
Recurrent Sinusitis
- check immunoglobulins
Chief Complaint
-: Other (complicated pneumonia, exudative effusion)
Subjective / Review of Systems
no further fevers
bp stable
on 1 -2 L NC
stable leukocytosis
cr 0.5
chest tube output dropped off yesterday
CXR today: Right chest tube, right basilar opacification and minimal left basilar subsegmental atelectasis without significant change.
Vital Signs / Physical Exam
Vital Signs
Vital Signs
Temp Pulse Resp BP Pulse Ox
98.3 F 80 23 137/63 89
11/02/23 08:00 11/02/23 06:00 11/02/23 06:00 11/02/23 06:00 11/02/23 06:00
Physical Exam
Constitutional: No Acute Distress
Cardiovascular: Regular Rate and S1/S2; Negative Murmur or Rub
Pulmonary: Clear and Symmetric; Negative Wheezes or Rales
Gastrointestinal: Soft, Non Tender, Non Distended and Normal Bowel Sounds
Skin: Warm and Dry; Negative Rash or Jaundice
Objective Data
Lab Data
Lab Results
11/01/23 13:35
11/02/23 03:00
ESR Cancelled 11/01/23 13:42
APTT 163.6 Sec (23.4-35.0) H* 11/02/23 03:00
Estimated Creat Clear 90 ml/min 11/02/23 03:00
Total Bilirubin 0.7 mg/dl (0.2-1.3) 10/28/23 18:28
AST 32 U/L (14-36) 10/28/23 18:28
ALT 40 U/L (0-35) H 10/28/23 18:28
Alkaline Phosphatase 168 U/L (38-126) H 10/28/23 18:28
C-Reactive Protein > 270.00 mg/L (0.0-10.00) H 11/02/23 03:00
Most recent labs reviewed.
Micro Results:
10/30/23 22:05 Blood Culture - Preliminary
Blood/Venous No Growth in 48 hours- Final report to follow
10/30/23 21:23 Blood Culture - Preliminary
Blood/Venous No Growth in 48 hours- Final report to follow
10/30/23 16:25 Fungal Smear - Final
Pleural Fluid No yeast or fungal elements seen.
Fungal Culture - Preliminary
Culture in progress.
Positive cultures are reported as soon as detected.
Final report to follow in four to five weeks.
10/30/23 16:25 Body Fluid Culture - Preliminary
Pleural Fluid No Growth After 18-24 Hours
Gram Stain - Preliminary
10/30/23 14:01 MRSA Screen - Final
Nose No Methicillin Resistant Staphylococcus aureus isolated.
10/30/23 22:13 Legionella Urinary Antigen - Final
Urine Negative for Legionella pneumophila Serogroup 1 antigen.
A negative result does not rule out the possiblity of
Legionella infection due to other serogroups or species of
Legionella. Clinical correlation is recommended.
Streptococcus pneumoniae Antigen (M - Final
Negative for Streptococcus pneumoniae antigen.
A negative result does not exclude infection with
Streptococcus pneumoniae. Clinical correlation is
recommended.
10/30/23 21:23 Influenza Types A & B (AMEE) - Final
Nasal Swab Negative for Influenza A & B, NAAT
Negative results must be combined with clinical observations
and patient history.
Nucleic Acid Amplification test (NAAT)performed on the
[employer] platform.
Care Review
Plan reviewed with: Physician (Dr Soares- chest tube)
--- NOTE | 2023-11-02 10:05 | W.PN.PUL3 ---
Today's Communication / Plan
-
Will discuss with interventional radiology regarding further images to determine whether there is residual significant pleural fluid.
If there is no pleural fluid discontinue chest tube
If there is significant residual loculation, thrombolytics/dornase alpha may be an option versus repositioning of chest tube.
Continue antibiotics
Incentive spirometry
Increase mobility
Assessment
-
Assessment:
Mrs Cassandra Ponce is a 63/W adm 10-27 with several d h/o fatigue, dyspnea and R sided CP. Denied cough, fever, NS, sick contacts, trauma. Adm CXR with R sided infiltrate/effusion, started on ceftriaxone/doxycycline. Interim rise in wbc and temp, atbs
adjusted to unasyn/doxy. IRad and Pulm consulted 10-29
Impression:
Community-acquired pneumonia RLL, RML
Complicated parapneumonic moderate R pleural effusion on CT
Exudate/culture negative
Status post chest tube placement
Leukocytosis
MRSA screening negative
RML bulla
Conditions [employer]:
Migraine
Chronic sinusitis, s/p surgery 1996 and 2016
Nephrolithiasis, ureteroscopy, lithotripsy
Cholelithiasis
Chronic back pain, L4-5 rhizotomy, DDD
Nonsmoker
Plan:
Afebrile overnight
Persistent leukocytosis noted.
Hemodynamically stable
Heart rate improved.
-
Status chest tube insertion 10/30/2023:
Follow R PF results, so far PMN 88%, LDH ^ (exudate), G 91, normal pH. Gstain negative, cx/cytology pending
Continue to follow chest tube output
In the last 24 to 48 hours only 50 cc.
Straw-colored fluid
Cultures negative
Chest x-ray 11/02/2023: Reviewed, residual right lower lobe infiltrate. Possible small pleural effusion. Stable compared to yesterday.
Chest x-ray 11/01/2023:improved pleural effusion. Persistent right sided infiltrate.
Chest tube without air leak.
Given lack of significant drainage, may need further imaging either ultrasound or CAT scan to determine whether there is a significant loculation. If there is loculation may consider thrombolytics/dornase alpha. I will discuss the case with
interventional radiology to determine which imaging would be best.
If there is no significant residual pleural effusion then we will discontinue chest tube.
-
Continue current antibiotics-per infectious disease.
Leg/Strep UAg negative
Continue to follow cultures
Pleural fluid cytology pending.
-
New onset atrial fibrillation. Heart rate improved.
Cardiology following.
On heparin drip.
Hemodynamically
Management per cardiology. Recommending outpatient follow-up and transition to oral anticoagulants 1 chest tube is discontinued
-
Pain management
Known h/o chronic back pain and migraine: on prn oral opiate/APAP, ibuprofen, butalbital/APAP/caffeine (fioricet) prn, enenumab sc, rimegepant, rizatriptan
On inpatient prn po oxycodone, prn NSAID (ketorolac), IV hydromorphone prn
Reports migraine usually exacerbates severely with intercurrent conditions
Management per primary team.
OOB as tolerated
Dr. Hernandez updated at the bedside 11/01/2023.
Subjective Data
-
Date of Service:
Date of Service: November 02, 2023
Chief Complaint: Pulmonary Follow Up
Subjective:
No new events overnight.
Denies any chest discomfort
No significant hemoptysis or phlegm production
Heart rate has improved
Afebrile
Review of Systems
Cardiopulmonary: Dyspnea (none at rest) and Sputum Production (n)
GI: Abdominal Pain (n) and Nausea (n)
Objective Data
Data Reviewed
Vital Signs / I&O / Oxygen:
Vital Signs
Temp Pulse Resp BP Pulse Ox
98.3 F 80 23 137/63 89
11/02/23 08:00 11/02/23 06:00 11/02/23 06:00 11/02/23 06:00 11/02/23 06:00
Intake and Output
11/01/23 11/02/23 11/03/23
06:59 06:59 06:59
Intake Total 4260 / 4260 3850 / 3850
Output Total 45 / 45 154 / 154
Balance 4215 / 4215 3696 / 3696
SaO2 89
Nasal Cannula flow liters per 1
minute
Physical Exam
General: Respiratory Distress (n)
HEENT: Normocephalic and Moist Mucous Membranes
Cardiovascular: Regular Rhythm, Murmur (n) and Peripheral Edema (n)
Respiratory: Clear (decreased at R base), Non-Labored Respirations, Stridor (n) and Chest Tube (No early, straw-colored fluid noted.)
GI: Soft, Non Distended and Non Tender
Neurology: Awake, AO x 3 and No Motor Deficits
Skin: Warm
Labs/Micro/Reports
Lab Data
11/01/23 13:35
11/02/23 03:00
Laboratory Results
11/01/23 11/01/23 11/02/23
13:35 20:58 03:00
APTT 27.6 81.1 H 163.6 H*
Microbiology
10/30/23 22:05 Blood/Venous Blood Culture - Preliminary
No Growth in 48 hours- Final report to follow
10/30/23 21:23 Blood/Venous Blood Culture - Preliminary
No Growth in 48 hours- Final report to follow
10/30/23 16:25 Pleural Fluid Fungal Smear - Final
No yeast or fungal elements seen.
10/30/23 16:25 Pleural Fluid Fungal Culture - Preliminary
Culture in progress.
Positive cultures are reported as soon as detected.
Final report to follow in four to five weeks.
10/30/23 16:25 Pleural Fluid Body Fluid Culture - Preliminary
No Growth After 18-24 Hours
10/30/23 16:25 Pleural Fluid Gram Stain - Preliminary
10/30/23 14:01 Nose MRSA Screen - Final
No Methicillin Resistant Staphylococcus aureus isolated.
10/30/23 22:13 Urine Legionella Urinary Antigen - Final
Negative for Legionella pneumophila Serogroup 1 antigen.
A negative result does not rule out the possiblity of
Legionella infection due to other serogroups or species of
Legionella. Clinical correlation is recommended.
10/30/23 22:13 Urine Streptococcus pneumoniae Antigen (M - Final
Negative for Streptococcus pneumoniae antigen.
A negative result does not exclude infection with
Streptococcus pneumoniae. Clinical correlation is
recommended.
10/30/23 21:23 Nasal Swab Influenza Types A & B (AMEE) - Final
Negative for Influenza A & B, NAAT
Negative results must be combined with clinical observations
and patient history.
Nucleic Acid Amplification test (NAAT)performed on the
[employer] platform.
--- NOTE | 2023-11-02 10:31 | PN.CDI ---
CDI
- -
CDI:
Physician Documentation Request
Admit Date: 10/29/23 02:29
Dear Doctor Dania,
Please review the following and provide your response in the progress notes.
Clinical Indicators:
- per 10/28 H&P 'Chronic Back Pain...oxycodone PRN pain'
- 10/31 PN 'patient has very high tolerance for opiates
- 10/27-10/28 0.5 mg Hydromorphone x 5
- 10/29-11/01 1 mg Hydromorphone x 13
Please provide further specificity as outlined below:
Opioid Use, with or without abuse and/or dependence
Opioid Abuse with or without dependence
Opioid Dependence
Other
Use of terms such as suspected, likely, concern for, or probable (associated with a specific diagnosis that is being evaluated, monitored, or treated as if it exists) are acceptable and can be coded in the inpatient setting, when documented at the
time of discharge.
Thank you,
Susan Walters RN
CDI Specialist
Please use your independent medical judgment in providing your response.
[2023-11-02 10:54] LABS: APTT 43.3 Sec (23.4-35.0)
--- NOTE | 2023-11-02 12:07 | PN.IRAD.UPD ---
Update Note - IRAD
- -
TPA 8 mg in a total volume of 50 ml 0.9% normal saline, DORNASE 5mg in a total volume of 50 ml 0.9% normal saline instilled via right chest tube at bedside at 11:45 am. catheter clamped at that time . Patient tolerated procedure well. RN notified.
--- NOTE | 2023-11-02 14:10 | W.PN.HOSP.TC ---
Today's Communication/Plan
-
Appreciate pulmonary assistance with chest tube
Continue Heparin Drip
Continue antibiotics
Continue rate controlling medications
Assessment / Plan
Assessment / Plan
Physical Exam
General: Not in acute distress
HEENT: Normocephalic
Respiratory: Decreased Breath Sounds (right lower lung) and Chest Tube
Cardiac: Regular Rhythm and S1/S2
GI: Soft and Nontender. Positive bowel sounds.
Musculoskeletal: No Edema
Skin: Warm and Dry
Neuro: AAO x 3
Psych: Calm
A/P
Patient is a 63y F with PMH significant for migraine headaches who presents to ED complaining of right-sided chest pain and SOB found to have initially uncomplicated small parapneumonic effusion. Rising WBC and fevers prompted repeat CXR with
showed increased size effusion now s/p chest tube insertion.
CHEST CTA:
1. Moderate airspace consolidation in the anterior basilar segment of the right lower lobe and smaller airspace consolidations in the posterior and lateral basilar segments most consistent with RIGHT LOWER LOBE PNEUMONIA.
2. SMALL RIGHT PARAPNEUMONIC PLEURAL EFFUSION.
3. Mild left to right mediastinal shift secondary to right lung volume loss.
4. Moderate mosaic attenuation throughout the left lung consistent with obstructive small airways disease.
ABDOMEN and PELVIS CTA:
1. 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
2. Small amount of cholelithiasis.
3. 4.7 mm nonobstructing left upper pole intrarenal calculus.
4. Previous ELIZABETH-BSO.
5. Grade 1 anterolisthesis of L4 on L5 secondary to moderate to severe facet joint arthrosis.
6. Moderate discogenic degenerative disease and severe right-sided facet joint arthrosis at L5/S1.
RUQ US
IMPRESSION:
1. No sonographic evidence for cholelithiasis, acute cholecystitis, or biliary obstruction.
2. 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
RLL Pneumonia
Parapneumonic Effusion
Pleurisy secondary to the above
- with rising WBC and fevers, repeat CXR obtained 10/29 with broadening abx from cef/doxy to Unasyn/doxy --> ID consulted--> atypical coverage not needed so Doxycycline
discontinued
- Continue Unasyn
- now s/p chest tube insertion on 10/29 by IR
- appreciate Pulmonary consult
- pleural fluid cultures WITH NO GROWTH SO FAR
- flu, covid negative; blood cultures WITH NO GROWTH SO FAR
- pain control with toradol PRN; dilaudid PRN severe pain (chest tube discomfort - patient has very high tolerance for opiates)
- continue IV Unasyn for now.
- Appreciate pulmonary -- continue to monitor chest tube: if there is significant residual loculation, thrombolytics/dornase alpha may be an option versus repositioning of chest
tube, as per pulmonary
New Paroxysmal Atrial Fibrillation
- Status post Cardizem Drip
- Continue PO Cardizem and Beta Precious Propranolol
- CHADVASC 2
- Heparin Drip started with eventual goal for oral anticoagulation (oral anticoagulation to be started once chest tube is taken out)
- Echocardiogram
Hypokalemia
- Monitor and replace
Migraine Headache with Acute Symptoms
- exacerbated in setting of infection
- continue CLOTH BURLER regimen; status post Imitrex
Chronic Sinus Disease
- Stable. Continue usual outpatient medications.
- Check immunoglobulins
Chronic Back Pain
Concern for Opioid Dependence
- Stable. Continue usual medications including oxycodone PRN pain.
- Follow-up with usual Pain Management doctor as an outpatient.
DVT Prophylaxis: Heparin Drip
Code Status: Full
Anticipated Discharge: > 48 hours
Subjective/Interval History
-
Date of Service: November 02, 2023
Patient was seen and examined. She denied any new significant chest pain, shortness of breath or fever.
Objective Data
-
Labs:
Laboratory Results
11/02/23 11/02/23 11/02/23
03:00 10:36 18:00
APTT 163.6 H* 43.3 H Pending
Sodium 135
Potassium 3.3 L
Chloride 99
Carbon Dioxide 26
BUN 10
Creatinine 0.5 L
Glucose 94
Calcium 8.7
Vital Signs:
Vital Signs
Temp Pulse Resp BP Pulse Ox
98.3 F 80 19 160/89 94
11/02/23 11:23 11/02/23 10:02 11/02/23 10:02 11/02/23 10:02 11/02/23 10:32
I&O
11/01/23 11/02/23 11/03/23
06:59 06:59 06:59
Intake Total 4260 / 4260 3850 / 3850
Output Total 45 / 45 154 / 154
Balance 4215 / 4215 3696 / 3696
[2023-11-02 14:18] LABS: IgA 184 mg/dl (70-400); IgG 784 mg/dl (700-1600); IgM 51 mg/dl (40-230)
[2023-11-02] MEDS: NON-FORMULARY ITEM 1 MG PO (14:51)
[2023-11-02] MEDS: VITAMIN D3 (cholecalciferol) 50 MCG PO (18:06)
[2023-11-02] MEDS: HEPARIN 25000 UNITS/250 ML IV (18:08)
[2023-11-02 18:14] LABS: % Basophils 0.2 % (0-2); % Eosinophils 2.7 % (0-6); % Immature Granulocytes 0.8 % (0-0.5); % Lymphocytes 6.1 % (20.5-51.1); % Monocytes 12.5 % (1.7-9.3); % Neutrophils 77.7 % (42.2-75.2); Absolute Eosinophils 0.5 10^3/uL (0-0.7); Absolute Immature Granulocytes 0.2 10^3/uL (0-0.05); Absolute Lymphocytes 1.1 10^3/uL (1.2-3.4); Absolute Monocytes 2.4 10^3/uL (0.1-0.6); Absolute Neutrophils 14.6 10^3/uL (1.4-6.5); Hematocrit 35.3 % (37.0-47.0); Hemoglobin 12.3 g/dL (12.0-16.0); Mean Corp Hgb Conc. 34.8 g/dL (33.0-37.0); Mean Corpuscular Volume 91.9 fL (81.0-99.0); Mean Platelet Volume 9.4 fL (7.4-10.4); Nucleated Red Blood Cells % 0 %; Platelet Count 319 10^3/uL (130-400); Red Blood Cell Count 3.84 10^6/uL (4.20-5.40); Red Cell Dist. Width 12.1 % (11.5-14.5); White Blood Cell Count 18.8 10^3/uL (4.8-10.8)
[2023-11-02 18:23] LABS: APTT 65.1 Sec (23.4-35.0)
[2023-11-02] MEDS: ZYRTEC 10 MG PO (22:08)
[2023-11-02] MEDS: LIPITOR 20 MG PO (22:08)
[2023-11-02] MEDS: VALIUM 4 MG PO (22:08)
[2023-11-02] MEDS: INDERAL LA 400 MG PO (22:08)
[2023-11-03] VITALS (11 sets, daily range): BP systolic 93–153; BP diastolic 44–98; PULSE 69–72; O2SAT 88; BMI 34.1
[2023-11-03 01:28] LABS: APTT 123.9 Sec (23.4-35.0)
[2023-11-03] MEDS: DILAUDID 1 MG IV ×7 (01:41→22:00)
[2023-11-03] MEDS: UNASYN IV ×4 (03:50→21:27)
[2023-11-03] MEDS: ZOFRAN 4 MG IV ×2 (03:50→09:56)
--- NOTE | 2023-11-03 05:52 | PTCARENOTE ---
Medicated for pain and nausea per SEP. Heparin titrated per worklist. No gi/gu complaints. Chest tube to -20cm suction; no air leak or crepitus. 150mL serosanguineous fluid output this shift. 2-3L NC in place; LOUISE when oob into BR. NSR on tele
monito, no afib seen. New IV placed to left arm per VAT. Tolerating heparin gtt and iv abx. Ambulates to BR with one person assist. Call miller within reach.
--- NOTE | 2023-11-03 09:54 | W.PN.PUL3 ---
Today's Communication / Plan
-
Continue to follow chest tube output
Continue antibiotics
Once chest tube output decreases, repeat CT chest.
Assessment
-
Assessment:
Mrs Cassandra Ponce is a 63/W adm 10-27 with several d h/o fatigue, dyspnea and R sided CP. Denied cough, fever, NS, sick contacts, trauma. Adm CXR with R sided infiltrate/effusion, started on ceftriaxone/doxycycline. Interim rise in wbc and temp, atbs
adjusted to unasyn/doxy. IRad and Pulm consulted 10-29
Impression:
Community-acquired pneumonia RLL, RML
Complicated parapneumonic moderate R pleural effusion on CT
Exudate/culture negative
Status post chest tube placement
Status post thrombolysis/dornase alpha 11/02/2023
Leukocytosis
MRSA screening negative
RML bulla
Conditions GLOBAL CMO:
Migraine
Chronic sinusitis, s/p surgery 1996 and 2016
Nephrolithiasis, ureteroscopy, lithotripsy
Cholelithiasis
Chronic back pain, L4-5 rhizotomy, DDD
Nonsmoker
Plan:
Remained afebrile
Improved leukocytosis
Hemodynamically stable
Heart rate improved.
-
Status chest tube insertion 10/30/2023:
Follow R PF results, so far PMN 88%, LDH ^ (exudate), G 91, normal pH. Gstain negative, cx/cytology pending
Continue to follow chest tube output
Chest tube output post thrombolysis 790 cc.
Straw-colored fluid
Cultures negative
chest x-ray 11/03/2023: Reviewed, chest x-ray continues to demonstrate right lower lobe infiltrate. Possible small effusion.
Chest x-ray 11/02/2023: residual right lower lobe infiltrate. Possible small pleural effusion. Stable compared to yesterday.
Chest x-ray 11/01/2023:improved pleural effusion. Persistent right sided infiltrate.
Chest tube without air leak.
Status post thrombolysis/dornase alpha.
Continue to follow chest tube output.
If there is decreased output under 100 cc in the next [address] chest.
-
Continue current antibiotics-per infectious disease.
Leg/Strep UAg negative
Continue to follow cultures
Pleural fluid cytology pending.
-
New onset atrial fibrillation. Heart rate improved.
Cardiology following.
On heparin drip.
Hemodynamically
Management per cardiology. Recommending outpatient follow-up and transition to oral anticoagulants 1 chest tube is discontinued
-
Pain management
Known h/o chronic back pain and migraine: on prn oral opiate/APAP, ibuprofen, butalbital/APAP/caffeine (fioricet) prn, enenumab sc, rimegepant, rizatriptan
On inpatient prn po oxycodone, prn NSAID (ketorolac), IV hydromorphone prn
Reports migraine usually exacerbates severely with intercurrent conditions
Management per primary team.
OOB as tolerated/IS encoraged.
Dr. Hernandez updated at the bedside 11/01/2023.
Subjective Data
-
Date of Service:
Date of Service: November 03, 2023
Chief Complaint: Pulmonary Follow Up
Subjective:
No new complaints.
Status post thrombolysis 11/02/2023 with good response.
Denies significant hemoptysis or purulent sputum production.
Review of Systems
General: Fever (n)
Cardiopulmonary: Dyspnea (improved), Cough, Sputum Production (n) and Chest Pain (n)
GI: Abdominal Pain (n) and Nausea (n)
Neuro: Headache (n)
Objective Data
Data Reviewed
Vital Signs / I&O / Oxygen:
Vital Signs
Temp Pulse Resp BP Pulse Ox
98.7 F 65 14 93/44 91
11/03/23 04:29 11/03/23 06:00 11/03/23 06:00 11/03/23 06:00 11/03/23 06:07
Intake and Output
11/02/23 11/03/23 11/04/23
06:59 06:59 06:59
Intake Total 3850 / 3850 120 / 120
Output Total 154 / 154 790 / 790
Balance 3696 / 3696 -670 / -670
SaO2 91
Nasal Cannula flow liters per 3
minute
Physical Exam
General: Respiratory Distress (n)
HEENT: Normocephalic and Moist Mucous Membranes
Cardiovascular: Regular Rhythm, Murmur (n) and Peripheral Edema (n)
Respiratory: Clear (decreased at R base), Non-Labored Respirations, Stridor (n) and Chest Tube (No early, straw-colored fluid noted.)
GI: Soft, Non Distended and Non Tender
Neurology: Awake, AO x 3 and No Motor Deficits
Skin: Warm
Labs/Micro/Reports
Laboratory Results
11/02/23 11/02/23 11/03/23
10:36 18:04 01:03
APTT 43.3 H 65.1 H 123.9 H
Microbiology
10/30/23 22:05 Blood/Venous Blood Culture - Preliminary
No Growth in 72 hours- Final report to follow
10/30/23 21:23 Blood/Venous Blood Culture - Preliminary
No Growth in 72 hours- Final report to follow
10/30/23 16:25 Pleural Fluid Body Fluid Culture - Preliminary
No Growth After 48 Hours
10/30/23 16:25 Pleural Fluid Gram Stain - Preliminary
10/30/23 16:25 Pleural Fluid Fungal Smear - Final
No yeast or fungal elements seen.
10/30/23 16:25 Pleural Fluid Fungal Culture - Preliminary
Culture in progress.
Positive cultures are reported as soon as detected.
Final report to follow in four to five weeks.
10/30/23 14:01 Nose MRSA Screen - Final
No Methicillin Resistant Staphylococcus aureus isolated.
10/30/23 22:13 Urine Legionella Urinary Antigen - Final
Negative for Legionella pneumophila Serogroup 1 antigen.
A negative result does not rule out the possiblity of
Legionella infection due to other serogroups or species of
Legionella. Clinical correlation is recommended.
10/30/23 22:13 Urine Streptococcus pneumoniae Antigen (M - Final
Negative for Streptococcus pneumoniae antigen.
A negative result does not exclude infection with
Streptococcus pneumoniae. Clinical correlation is
recommended.
[2023-11-03] MEDS: CARDIZEM CD 120 MG PO (09:57)
[2023-11-03] MEDS: LIDOCAINE 4% PATCH 1 PATCH TOPICAL (09:57)
[2023-11-03 10:05] LABS: Hemoglobin 11.6 g/dL (12.0-16.0); Mean Corp Hgb Conc. 34.1 g/dL (33.0-37.0); Mean Corpuscular Hgb 32.1 pg (27.0-31.0); Mean Corpuscular Volume 94.2 fL (81.0-99.0); Mean Platelet Volume 9.6 fL (7.4-10.4); Platelet Count 287 10^3/uL (130-400); Red Blood Cell Count 3.61 10^6/uL (4.20-5.40); Red Cell Dist. Width 11.9 % (11.5-14.5); White Blood Cell Count 17.9 10^3/uL (4.8-10.8)
[2023-11-03 10:16] LABS: APTT 78.1 Sec (23.4-35.0)
[2023-11-03 10:27] LABS: Blood Urea Nitrogen 5 mg/dl (7-17); Calcium 8.2 mg/dl (8.4-10.2); Chloride 94 mmol/L (98-107); Estimated Creatinine Clearance 89 ml/min; Glucose 160 mg/dl (70-99); Magnesium 2.1 mg/dl (1.6-2.3); Potassium 2.9 mmol/L (3.5-5.1); Sodium 131 mmol/L (135-145); eGFR > 60.00
--- NOTE | 2023-11-03 10:46 | W.PN.ID1 ---
Date of Service
Date of Service: November 03, 2023
Today's Communication
- CRP remained elevated yesterday, however given overall clinical picture would not make any changes
- has drainage with chest tube - with brisk output yest/today post dna-ase
- continue with unasyn
- follow clinically - would continue the present course
Assessment / Plan
Exudative Pleural Effusion - complicated
Pneumonia
Fever - resolved
Leukocytosis - overall stable
- hasnt produced a sputum
- pleural fluid no growth to date
- blood cultures x2 no growth to date
- CRP remained elevated yesterday, however given overall clinical picture would not make any changes
- has drainage with chest tube - with brisk output yest/today post dna-ase
- continue with unasyn
- follow clinically - would continue the present course
Recurrent Sinusitis
- immunoglobulins normal
Chief Complaint
-: Pneumonia and Other (complicated pneumonia, exudative effusion)
Subjective / Review of Systems
afebrile
bp stable
further small improvement in wbc count this am
cr 0.4
CXR my read: stable small R effusion, essentially stable consolidation adjacent
has right pleural lysis yesterday: with 640 further ccs of output yesterday and 150 ccs today
some expected pleuritic chest pain
Vital Signs / Physical Exam
Vital Signs
Vital Signs
Temp Pulse Resp BP Pulse Ox
98.2 F 65 14 93/44 91
11/03/23 07:30 11/03/23 06:00 11/03/23 06:00 11/03/23 06:00 11/03/23 06:07
Physical Exam
Constitutional: No Acute Distress
Cardiovascular: Regular Rate and S1/S2; Negative Murmur or Rub
Pulmonary: Clear and Other (diminished R base); Negative Symmetric, Wheezes or Rales
Gastrointestinal: Soft, Non Tender, Non Distended and Normal Bowel Sounds
Skin: Warm and Dry; Negative Rash or Jaundice
Neurological: Awake
Objective Data
Lab Data
Lab Results
11/03/23 09:54
ESR Cancelled 11/01/23 13:42
APTT 78.1 Sec (23.4-35.0) H 11/03/23 09:54
Estimated Creat Clear 89 ml/min 11/03/23 09:54
Total Bilirubin 0.7 mg/dl (0.2-1.3) 10/28/23 18:28
AST 32 U/L (14-36) 10/28/23 18:28
ALT 40 U/L (0-35) H 10/28/23 18:28
Alkaline Phosphatase 168 U/L (38-126) H 10/28/23 18:28
C-Reactive Protein > 270.00 mg/L (0.0-10.00) H 11/02/23 03:00
Most recent labs reviewed.
Micro Results:
10/30/23 22:05 Blood Culture - Preliminary
Blood/Venous No Growth in 72 hours- Final report to follow
10/30/23 21:23 Blood Culture - Preliminary
Blood/Venous No Growth in 72 hours- Final report to follow
10/30/23 16:25 Body Fluid Culture - Preliminary
Pleural Fluid No Growth After 48 Hours
Gram Stain - Preliminary
10/30/23 16:25 Fungal Smear - Final
Pleural Fluid No yeast or fungal elements seen.
Fungal Culture - Preliminary
Culture in progress.
Positive cultures are reported as soon as detected.
Final report to follow in four to five weeks.
10/30/23 14:01 MRSA Screen - Final
Nose No Methicillin Resistant Staphylococcus aureus isolated.
10/30/23 22:13 Legionella Urinary Antigen - Final
Urine Negative for Legionella pneumophila Serogroup 1 antigen.
A negative result does not rule out the possiblity of
Legionella infection due to other serogroups or species of
Legionella. Clinical correlation is recommended.
Streptococcus pneumoniae Antigen (M - Final
Negative for Streptococcus pneumoniae antigen.
A negative result does not exclude infection with
Streptococcus pneumoniae. Clinical correlation is
recommended.
10/30/23 21:23 Influenza Types A & B (AMEE) - Final
Nasal Swab Negative for Influenza A & B, NAAT
Negative results must be combined with clinical observations
and patient history.
Nucleic Acid Amplification test (NAAT)performed on the
[employer] platform.
[2023-11-03 10:48] LABS: Carbon Dioxide 32 mmol/L (22-30)
--- NOTE | 2023-11-03 11:17 | W.PN.CD ---
Today's Communication / Plan
-
Stop heparin start Eliquis
TTE normal
We will sign off; please call back with questions/concerns
Impression / Plan
-
Pneumonia:
-on ABX
-parapneumonic effusion with CT in place
-management per primary/pulm team
AFIB with RVR: paroxysmal, noted since this AM
-in setting of acute illness
-Diltiazem added, already on high dose bb
-[id number] score 2 (female, appears to have HTN - BP's up despite propranolol 400 mg for migraines)
- start Eliquis stop heparin gtt
-CM c/s to [facility] Eliquis
-echo today
Hypokalemia:
-replace and monitor
Dyslipidemia:
-stable per patient
-on Lipitor
Migraines:
-on propranolol
Subjective:
back hurts but no cp or sob. no palpitaitons.
Physical Exam
Vital Signs/Labs
Vital Signs
Temp Pulse Resp BP Pulse Ox
98.2 F 74 20 142/82 95
11/03/23 07:30 11/03/23 10:00 11/03/23 10:00 11/03/23 10:00 11/03/23 10:00
11/02/23 11/03/23 11/04/23
06:59 06:59 06:59
Actual Weight 177 lb 0.499 oz 174 lb 9.698 oz
11/03/23 09:54
APTT 78.1 Sec (23.4-35.0) H 11/03/23 09:54
Magnesium 2.1 mg/dl (1.6-2.3) 11/03/23 09:54
Physical Exam
Constitutional: No acute distress and Comfortable
EENT: Anicteric
Cardiovascular: Rhythm & rate is regular and Pedal edema is absent
Respiratory: Respiratory effort normal
GI: Soft
Neuro/Psych: AO x 3
Data Reviewed
-
Date of Service: November 03, 2023
EKG: Tracing Personally Visualized and interpreted (SR)
Echo: Report Reviewed by me
Labs: Labs Reviewed by me
--- NOTE | 2023-11-03 12:17 | CM ---
CM following re: discharge planning.
Reviewed pt's chart, met with pt and pt's at bedside.
PT and OT evaluations requested to determine a level of care at discharge.
D/C plan: home with possibly VN if recommended by PT.
CM will follow with discharge plan updates as hospitalization progresses
[2023-11-03] MEDS: KCL 40 MEQ PO (12:29)
[2023-11-03] MEDS: KCL 260 MEQ IV (12:30)
[2023-11-03] MEDS: VITAMIN D3 (cholecalciferol) 50 MCG PO (15:43)
[2023-11-03 17:03] LABS: % Basophils 0.2 % (0-2); % Immature Granulocytes 1.1 % (0-0.5); % Lymphocytes 7.8 % (20.5-51.1); % Monocytes 11.3 % (1.7-9.3); % Neutrophils 76.6 % (42.2-75.2); Absolute Eosinophils 0.5 10^3/uL (0-0.7); Absolute Immature Granulocytes 0.2 10^3/uL (0-0.05); Absolute Lymphocytes 1.4 10^3/uL (1.2-3.4); Absolute Neutrophils 13.5 10^3/uL (1.4-6.5); Hematocrit 34.4 % (37.0-47.0); Hemoglobin 11.9 g/dL (12.0-16.0); Mean Corp Hgb Conc. 34.6 g/dL (33.0-37.0); Mean Corpuscular Hgb 32.1 pg (27.0-31.0); Mean Corpuscular Volume 92.7 fL (81.0-99.0); Mean Platelet Volume 9.6 fL (7.4-10.4); Nucleated Red Blood Cells % 0 %; Platelet Count 319 10^3/uL (130-400); Red Blood Cell Count 3.71 10^6/uL (4.20-5.40); Red Cell Dist. Width 11.9 % (11.5-14.5); White Blood Cell Count 17.6 10^3/uL (4.8-10.8)
[2023-11-03 17:14] LABS: APTT 40.8 Sec (23.4-35.0)
--- NOTE | 2023-11-03 17:52 | W.PN.HOSP.TC ---
Today's Communication/Plan
-
Hopefully chest tube output will slow down, so CT chest can be done and tube can be taken out
Start Eliquis, stop Heparin
Continue Unasyn
Follow pleural cytology and studies
Assessment / Plan
Assessment / Plan
Physical Exam
Patient was in the bathroom using the toilet, and she declined physical exam today.
A/P
Patient is a 63y F with PMH significant for migraine headaches who presents to ED complaining of right-sided chest pain and SOB found to have initially uncomplicated small parapneumonic effusion. Rising WBC and fevers prompted repeat CXR with
showed increased size effusion now s/p chest tube insertion.
CHEST CTA:
1. Moderate airspace consolidation in the anterior basilar segment of the right lower lobe and smaller airspace consolidations in the posterior and lateral basilar segments most consistent with RIGHT LOWER LOBE PNEUMONIA.
2. SMALL RIGHT PARAPNEUMONIC PLEURAL EFFUSION.
3. Mild left to right mediastinal shift secondary to right lung volume loss.
4. Moderate mosaic attenuation throughout the left lung consistent with obstructive small airways disease.
ABDOMEN and PELVIS CTA:
1. 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
2. Small amount of cholelithiasis.
3. 4.7 mm nonobstructing left upper pole intrarenal calculus.
4. Previous ELIZABETH-BSO.
5. Grade 1 anterolisthesis of L4 on L5 secondary to moderate to severe facet joint arthrosis.
6. Moderate discogenic degenerative disease and severe right-sided facet joint arthrosis at L5/S1.
RUQ US
IMPRESSION:
1. No sonographic evidence for cholelithiasis, acute cholecystitis, or biliary obstruction.
2. 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
RLL Pneumonia
Complicated Exudative Pleural Effusion status post thrombolysis/dornase alpha 11/02/2023
Pleurisy secondary to the above
- Continue Unasyn
- now s/p chest tube insertion on 10/29 by IR: appears to be exudative with PMNs, but gram stain negative
- pleural fluid cultures WITH NO GROWTH SO FAR
- flu, covid negative; blood cultures WITH NO GROWTH SO FAR
- pain control with toradol PRN; dilaudid PRN severe pain (chest tube discomfort - patient has very high tolerance for opiates)
- Appreciate pulmonary -- continue to monitor chest tube: if there is decreased output under 100 cc in the next [address] chest.
New Paroxysmal Atrial Fibrillation
- Status post Cardizem Drip
- Continue PO Cardizem and Beta Precious Propranolol
- CHADVASC 2
- Stop Heparin Drip as per cardiology
- Start Eliquis
- Echocardiogram unremarkable
Hypokalemia
- Monitor and replace
- Recheck BMP on 11/03/23 evening
Migraine Headache with Acute Symptoms
- exacerbated in setting of infection
- continue [employer] regimen; status post Imitrex
Chronic Sinus Disease
- Stable. Continue usual outpatient medications.
- Immunoglobulins normal
Chronic Back Pain
Concern for Opioid Dependence
- Stable. Continue usual medications including oxycodone PRN pain.
- Follow-up with usual Pain Management doctor as an outpatient.
DVT Prophylaxis: Eliquis
Code Status: Full
Anticipated Discharge: 24 - 48 hours
Subjective/Interval History
-
Date of Service: November 03, 2023
Patient was seen and examined. She denied any new symptoms, was using the bathroom.
Objective Data
-
Labs:
Laboratory Results
11/03/23 11/03/23 11/03/23
09:54 16:39 19:30
WBC 17.9 H 17.6 H
Hgb 11.6 L 11.9 L
Hct 34.0 L 34.4 L
Plt Count 287 319
APTT 78.1 H 40.8 H
Sodium 131 L Pending
Potassium 2.9 L Pending
Chloride 94 L Pending
Carbon Dioxide 32 H Pending
BUN 5 L Pending
Creatinine 0.4 L Pending
Glucose 160 H Pending
Calcium 8.2 L Pending
Vital Signs:
Vital Signs
Temp Pulse Resp BP Pulse Ox
98.3 F 73 18 136/89 95
11/03/23 15:30 11/03/23 14:00 11/03/23 14:00 11/03/23 14:00 11/03/23 12:00
I&O
11/02/23 11/03/23 11/04/23
06:59 06:59 06:59
Intake Total 3850 / 3850 120 / 120 1200 / 1200
Output Total 154 / 154 790 / 790
Balance 3696 / 3696 -670 / -670 1200 / 1200
--- NOTE | 2023-11-03 19:27 | PTCARENOTE ---
IV Dilaudid given x4 this shift for pain 9/10 head and right thorax CT site. Chest tube to suction, as documented- 10 ml serous output this shift. Attempted RAIR today sao2 88% so replaced 2L NC (94%). Appetite improving however req. 1 dose
zofran this shift. Ambulated to bathroom several times today and walked in the halls once today. IV Heparin stopped at 1800 per order. Completed IV K rider and oral supplement.
[2023-11-03] MEDS: FIORICET 1 TAB PO (20:40)
[2023-11-03] MEDS: ELIQUIS 5 MG PO (20:40)
[2023-11-03] MEDS: VALIUM 4 MG PO (21:24)
[2023-11-03] MEDS: INDERAL LA 400 MG PO (21:24)
[2023-11-03] MEDS: LIPITOR 20 MG PO (21:28)
[2023-11-03] MEDS: TYLENOL 650 MG PO (21:28)
[2023-11-03] MEDS: ZYRTEC 10 MG PO (21:28)
[2023-11-04] VITALS (14 sets, daily range): BP systolic 115–173; BP diastolic 58–100; PULSE 79–85; O2SAT 92; BMI 33.8
[2023-11-04] MEDS: DILAUDID 1 MG IV ×5 (03:30→21:12)
[2023-11-04] MEDS: UNASYN IV ×4 (03:31→21:12)
[2023-11-04] MEDS: ZOFRAN 4 MG IV ×3 (03:54→16:24)
[2023-11-04 04:43] LABS: ALT (SGPT) 30 U/L (0-35); AST (SGOT) 46 U/L (14-36); Albumin 2.9 g/dl (3.5-5.0); Alkaline Phosphatase 172 U/L (38-126); Blood Urea Nitrogen 3 mg/dl (7-17); Calcium 8.6 mg/dl (8.4-10.2); Carbon Dioxide 35 mmol/L (22-30); Chloride 96 mmol/L (98-107); Estimated Creatinine Clearance 89 ml/min; Glucose 99 mg/dl (70-99); Potassium 3.3 mmol/L (3.5-5.1); Sodium 135 mmol/L (135-145); Total Bilirubin 0.5 mg/dl (0.2-1.3); Total Protein 5.7 g/dl (6.3-8.2); eGFR > 60.00
[2023-11-04] MEDS: KCL 270 MEQ IV (06:21)
[2023-11-04] MEDS: CARDIZEM CD 120 MG PO (07:41)
[2023-11-04] MEDS: ELIQUIS 5 MG PO ×2 (07:42→20:01)
[2023-11-04] MEDS: LIDOCAINE 4% PATCH 1 PATCH TOPICAL (07:42)
[2023-11-04] MEDS: KCL 40 MEQ PO (08:26)
[2023-11-04] MEDS: ROXICODONE 10 MG PO (10:08)
--- NOTE | 2023-11-04 11:01 | W.PN.PUL3 ---
Today's Communication / Plan
-
CT chest, if there is no significant loculation will consider discontinuation of chest tube.
Follow chest tube output
Continue antibiotics
Increase activity as able
Incentive spirometry
Assessment
-
Assessment:
Mrs Cassandra Ponce is a 63/W adm 10-27 with several d h/o fatigue, dyspnea and R sided CP. Denied cough, fever, NS, sick contacts, trauma. Adm CXR with R sided infiltrate/effusion, started on ceftriaxone/doxycycline. Interim rise in wbc and temp, atbs
adjusted to unasyn/doxy. IRad and Pulm consulted 10-29
Impression:
Community-acquired pneumonia RLL, RML
Complicated parapneumonic moderate R pleural effusion on CT
Exudate/culture negative
Status post chest tube placement
Status post thrombolysis/dornase alpha 11/02/2023
Leukocytosis
MRSA screening negative
RML bulla
Conditions CRAS:
Migraine
Chronic sinusitis, s/p surgery 1996 and 2016
Nephrolithiasis, ureteroscopy, lithotripsy
Cholelithiasis
Chronic back pain, L4-5 rhizotomy, DDD
Nonsmoker
Plan:
Hemodynamically stable.
Minimal low-grade fever overnight.
-
Status chest tube insertion 10/30/2023:
Follow R PF results, so far PMN 88%, LDH ^ (exudate), G 91, normal pH. Gstain negative, cx/cytology pending
Continue to follow chest tube output
Chest tube output post thrombolysis/dornase alpha 790 cc.
Chest tube output only 10 cc overnight.
Chest x-ray 11/04/2023: Reviewed, showed persistent right lower lobe infiltrate. Loss of volume of the right lung suggest atelectasis as well.
Cannot rule out persistent loculated effusion.
Obtain CT chest. If there is no significant loculated effusion then will consider discontinuation of chest tube.
Patient will need radiographic follow-up in the outpatient setting.
-
Cultures negative
Cytology negative
chest x-ray 11/03/2023: chest x-ray continues to demonstrate right lower lobe infiltrate. Possible small effusion.
Chest x-ray 11/02/2023: residual right lower lobe infiltrate. Possible small pleural effusion. Stable compared to yesterday.
Chest x-ray 11/01/2023:improved pleural effusion. Persistent right sided infiltrate.
Chest tube without air leak.
Status post thrombolysis/dornase alpha. 11/02/2023
-
Continue current antibiotics-per infectious disease.
Leg/Strep UAg negative
Continue to follow cultures
Cytology negative
-
New onset atrial fibrillation. Heart rate improved.
Cardiology following.
On oral anticoagulation.
Hemodynamically
Management per cardiology. Recommending outpatient follow-up and transition to oral anticoagulants 1 chest tube is discontinued
-
Pain management
Known h/o chronic back pain and migraine: on prn oral opiate/APAP, ibuprofen, butalbital/APAP/caffeine (fioricet) prn, enenumab sc, rimegepant, rizatriptan
On inpatient prn po oxycodone, prn NSAID (ketorolac), IV hydromorphone prn
Reports migraine usually exacerbates severely with intercurrent conditions
Management per primary team.
OOB as tolerated/IS encoraged.
Dr. Hernandez updated at the bedside 11/03/2023.
Subjective Data
-
Date of Service:
Date of Service: November 04, 2023
Chief Complaint: Pulmonary Follow Up
Subjective:
No new complaints.
Chest tube site entry discomfort.
Denies hemoptysis.
Review of Systems
General: Fever (n)
Cardiopulmonary: Dyspnea (none at rest), Cough (n) and Sputum Production (n)
GI: Abdominal Pain (n) and Nausea (n)
Objective Data
Data Reviewed
Vital Signs / I&O / Oxygen:
Vital Signs
Temp Pulse Resp BP Pulse Ox
99.1 F 78 20 173/85 94
11/04/23 07:15 11/04/23 07:41 11/04/23 07:15 11/04/23 07:41 11/04/23 07:15
Intake and Output
11/03/23 11/04/23 11/05/23
06:59 06:59 06:59
Intake Total 120 / 120 2099
Output Total 790 / 790
Balance -670 / -670 2089
SaO2 94
Nasal Cannula flow liters per 2
minute
Physical Exam
General: Respiratory Distress (n)
HEENT: Normocephalic and Moist Mucous Membranes
Cardiovascular: Regular Rhythm, Murmur (n) and Peripheral Edema (n)
Respiratory: Clear (decreased at R base), Non-Labored Respirations, Stridor (n) and Chest Tube (No early, serosanguineous fluid noted.)
GI: Soft, Non Distended and Non Tender
Neurology: Awake, AO x 3 and No Motor Deficits
Skin: Warm
Labs/Micro/Reports
Lab Data
11/04/23 03:48
Laboratory Results
11/03/23
16:39
APTT 40.8 H
Microbiology
10/30/23 22:05 Blood/Venous Blood Culture - Preliminary
No Growth in 4 days- Final report to follow
10/30/23 21:23 Blood/Venous Blood Culture - Preliminary
No Growth in 4 days- Final report to follow
10/30/23 16:25 Pleural Fluid Body Fluid Culture - Final
No Growth After 72 Hours
10/30/23 16:25 Pleural Fluid Gram Stain - Final
10/30/23 16:25 Pleural Fluid Fungal Smear - Final
No yeast or fungal elements seen.
10/30/23 16:25 Pleural Fluid Fungal Culture - Preliminary
Culture in progress.
Positive cultures are reported as soon as detected.
Final report to follow in four to five weeks.
--- NOTE | 2023-11-04 12:11 | W.PN.HOSP.TC ---
Today's Communication/Plan
-
Chest tube output has decreased
Check CT Chest
Hopefully chest tube can be taken out today based on the results of the CT Chest
Continue Eliquis
Assessment / Plan
Assessment / Plan
Physical Exam
General: Not in acute distress
HEENT: Normocephalic
Respiratory: Decreased Breath Sounds (right lower lung) and Chest Tube
Cardiac: Regular Rhythm and S1/S2
GI: Soft and Nontender. Positive bowel sounds.
Musculoskeletal: No Edema
Skin: Warm and Dry
Neuro: AAO x 3
Psych: Calm
A/P
Patient is a 63y F with PMH significant for migraine headaches who presents to ED complaining of right-sided chest pain and SOB found to have initially uncomplicated small parapneumonic effusion. Rising WBC and fevers prompted repeat CXR with
showed increased size effusion now s/p chest tube insertion.
CHEST CTA:
1. Moderate airspace consolidation in the anterior basilar segment of the right lower lobe and smaller airspace consolidations in the posterior and lateral basilar segments most consistent with RIGHT LOWER LOBE PNEUMONIA.
2. SMALL RIGHT PARAPNEUMONIC PLEURAL EFFUSION.
3. Mild left to right mediastinal shift secondary to right lung volume loss.
4. Moderate mosaic attenuation throughout the left lung consistent with obstructive small airways disease.
ABDOMEN and PELVIS CTA:
1. 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
2. Small amount of cholelithiasis.
3. 4.7 mm nonobstructing left upper pole intrarenal calculus.
4. Previous ELIZABETH-BSO.
5. Grade 1 anterolisthesis of L4 on L5 secondary to moderate to severe facet joint arthrosis.
6. Moderate discogenic degenerative disease and severe right-sided facet joint arthrosis at L5/S1.
RUQ US
IMPRESSION:
1. No sonographic evidence for cholelithiasis, acute cholecystitis, or biliary obstruction.
2. 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
RLL Pneumonia
Complicated Exudative Pleural Effusion status post thrombolysis/dornase alpha 11/02/2023
Pleurisy secondary to the above
- Continue Unasyn
- now s/p chest tube insertion on 10/29 by IR: appears to be exudative with PMNs, but gram stain negative
- pleural fluid cultures WITH NO GROWTH SO FAR
- flu, covid negative; blood cultures WITH NO GROWTH SO FAR
- pain control with toradol PRN; dilaudid PRN severe pain (chest tube discomfort - patient has very high tolerance for opiates)
- Appreciate pulmonary -- continue to monitor chest tube: output has decreased significantly
- Therefore, obtain CT chest: if there is no significant loculated effusion on imaging, then consider discontinuation of chest tube.
- Patient will need radiographic follow-up in the outpatient setting.
New Paroxysmal Atrial Fibrillation
- Status post Cardizem Drip
- Continue PO Cardizem and Beta Precious Propranolol
- CHADVASC 2
- Status post Heparin Drip
- Continue Eliquis
- Echocardiogram unremarkable
Hypokalemia
- Monitor and replace
- Monitor BMP
Migraine Headache with Acute Symptoms
- exacerbated in setting of infection
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
Chronic Sinus Disease
- Stable. Continue usual outpatient medications.
- Immunoglobulins normal
Chronic Back Pain
Concern for Opioid Dependence
- Stable. Continue usual medications including oxycodone PRN pain.
- Follow-up with usual Pain Management doctor as an outpatient.
DVT Prophylaxis: Eliquis
Code Status: Full
Anticipated Discharge: 24 - 48 hours
Subjective/Interval History
-
Date of Service: November 04, 2023
Patient was seen and examined. Her family members were present in her room. She denied any new chest pain or shortness of breath, except for some discomfort at the chest tube insertion site.
Objective Data
-
Labs:
Laboratory Results
11/04/23 11/04/23 11/04/23
03:48 03:48 03:48
Sodium Cancelled 135
Potassium Cancelled 3.3 L
Chloride Cancelled
Carbon Dioxide
BUN
Creatinine
Glucose
Calcium
Total Bilirubin
AST
ALT
Alkaline Phosphatase
11/04/23 11/04/23 11/04/23
03:48 03:48 03:48
Sodium
Potassium
Chloride 96 L
Carbon Dioxide Cancelled 35 H
BUN Cancelled 3 L
Creatinine Cancelled
Glucose
Calcium
Total Bilirubin
AST
ALT
Alkaline Phosphatase
11/04/23 11/04/23 11/04/23
03:48 03:48 03:48
Sodium
Potassium
Chloride
Carbon Dioxide
BUN
Creatinine 0.5 L
Glucose Cancelled 99
Calcium Cancelled 8.6
Total Bilirubin 0.5
AST 46 H
ALT 30
Alkaline Phosphatase 172 H
Vital Signs:
Vital Signs
Temp Pulse Resp BP Pulse Ox
99.1 F 78 18 173/85 92
11/04/23 11:48 11/04/23 07:41 11/04/23 11:48 11/04/23 07:41 11/04/23 11:48
I&O
11/03/23 11/04/23 11/05/23
06:59 06:59 06:59
Intake Total 120 / 120 2099
Output Total 790 / 790
Balance -670 / -670 2089
--- NOTE | 2023-11-04 12:14 | W.PN.ID1 ---
Date of Service
Date of Service: November 04, 2023
Today's Communication
- continue with unasyn while chest tube in place, after removal can switch to augmentin for another two weeks
- follow clinically - would continue the present course
Assessment / Plan
Exudative Pleural Effusion - complicated
Pneumonia
Fever - resolved
Leukocytosis - overall improving
- hasnt produced a sputum
- pleural fluid no growth to date
- blood cultures x2 no growth to date
- path no malignant cells
- has drainage with chest tube - follow up CT chest and plans from pulmonary
- continue with unasyn while chest tube in place, after removal can switch to augmentin for another two weeks
- follow clinically - would continue the present course
Chief Complaint
-: Pneumonia and Other (complicated pneumonia, exudative effusion)
Subjective / Review of Systems
tmax 100.3
bp stable to hypertensive this afternoon
cbc pending today
cr 0.5
cxr today
chest tube output 160 ccs yesterday
still with some pleuritic chest pain
Vital Signs / Physical Exam
Vital Signs
Vital Signs
Temp Pulse Resp BP Pulse Ox
99.1 F 78 18 173/85 92
11/04/23 11:48 11/04/23 07:41 11/04/23 11:48 11/04/23 07:41 11/04/23 11:48
Physical Exam
Constitutional: No Acute Distress and Chronically Ill
Cardiovascular: Regular Rate and S1/S2; Negative Murmur or Rub
Pulmonary: Clear and Symmetric; Negative Wheezes or Rales
Gastrointestinal: Soft, Non Tender, Non Distended and Normal Bowel Sounds
Skin: Warm and Dry; Negative Rash or Jaundice
Neurological: Awake
Lines: Other (chest tube)
Objective Data
Lab Data
Lab Results
11/04/23 03:48
ESR Cancelled 11/01/23 13:42
APTT 40.8 Sec (23.4-35.0) H 11/03/23 16:39
Estimated Creat Clear 89 ml/min 11/04/23 03:48
Estimated Creat Clear Cancelled 11/04/23 03:48
Total Bilirubin 0.5 mg/dl (0.2-1.3) 11/04/23 03:48
AST 46 U/L (14-36) H 11/04/23 03:48
ALT 30 U/L (0-35) 11/04/23 03:48
Alkaline Phosphatase 172 U/L (38-126) H 11/04/23 03:48
C-Reactive Protein > 270.00 mg/L (0.0-10.00) H 11/02/23 03:00
Most recent labs reviewed.
Micro Results:
10/30/23 22:05 Blood Culture - Preliminary
Blood/Venous No Growth in 4 days- Final report to follow
10/30/23 21:23 Blood Culture - Preliminary
Blood/Venous No Growth in 4 days- Final report to follow
10/30/23 16:25 Body Fluid Culture - Final
Pleural Fluid No Growth After 72 Hours
Gram Stain - Final
10/30/23 16:25 Fungal Smear - Final
Pleural Fluid No yeast or fungal elements seen.
Fungal Culture - Preliminary
Culture in progress.
Positive cultures are reported as soon as detected.
Final report to follow in four to five weeks.
10/30/23 14:01 MRSA Screen - Final
Nose No Methicillin Resistant Staphylococcus aureus isolated.
10/30/23 22:13 Legionella Urinary Antigen - Final
Urine Negative for Legionella pneumophila Serogroup 1 antigen.
A negative result does not rule out the possiblity of
Legionella infection due to other serogroups or species of
Legionella. Clinical correlation is recommended.
Streptococcus pneumoniae Antigen (M - Final
Negative for Streptococcus pneumoniae antigen.
A negative result does not exclude infection with
Streptococcus pneumoniae. Clinical correlation is
recommended.
10/30/23 21:23 Influenza Types A & B ([facility]EE) - Final
Nasal Swab Negative for Influenza A & B, NAAT
Negative results must be combined with clinical observations
and patient history.
Nucleic Acid Amplification test (NAAT)performed on the
[employer] platform.
[2023-11-04] MEDS: VITAMIN D3 (cholecalciferol) 50 MCG PO (17:14)
--- NOTE | 2023-11-04 18:09 | PTCARENOTE ---
Patient continues to report pain to right lower back and chest tube site throughout shift. Pain medication given as needed. CT scan of chest done. Waiting on whether patient with be TPA again or chest tube will be removed tomorrow AM. Patient in
chair OOB and ambulated lea with assistance.
[2023-11-04] MEDS: VALIUM 4 MG PO (21:12)
[2023-11-04] MEDS: LIPITOR 20 MG PO (21:12)
[2023-11-04] MEDS: ZYRTEC 10 MG PO (21:12)
[2023-11-04] MEDS: INDERAL LA 400 MG PO (21:12)
[2023-11-05] VITALS (9 sets, daily range): BP systolic 123–171; BP diastolic 61–108; PULSE 76; O2SAT 94
[2023-11-05] MEDS: DILAUDID 1 MG IV ×7 (00:27→23:13)
[2023-11-05] MEDS: UNASYN IV ×4 (03:43→22:08)
[2023-11-05 04:04] LABS: Hematocrit 31.1 % (37.0-47.0); Hemoglobin 10.7 g/dL (12.0-16.0); Mean Corp Hgb Conc. 34.4 g/dL (33.0-37.0); Mean Corpuscular Hgb 32.4 pg (27.0-31.0); Mean Corpuscular Volume 94.2 fL (81.0-99.0); Mean Platelet Volume 9.6 fL (7.4-10.4); Platelet Count 299 10^3/uL (130-400); White Blood Cell Count 13.7 10^3/uL (4.8-10.8)
[2023-11-05 04:53] LABS: ALT (SGPT) 32 U/L (0-35); AST (SGOT) 51 U/L (14-36); Albumin 2.7 g/dl (3.5-5.0); Alkaline Phosphatase 165 U/L (38-126); Blood Urea Nitrogen 2 mg/dl (7-17); Calcium 8.2 mg/dl (8.4-10.2); Carbon Dioxide 32 mmol/L (22-30); Chloride 97 mmol/L (98-107); Estimated Creatinine Clearance 89 ml/min; Glucose 107 mg/dl (70-99); Potassium 3.2 mmol/L (3.5-5.1); Sodium 131 mmol/L (135-145); Total Bilirubin 0.5 mg/dl (0.2-1.3); Total Protein 5.5 g/dl (6.3-8.2); eGFR > 60.00
[2023-11-05] MEDS: KCL 270 MEQ IV (05:38)
[2023-11-05] MEDS: KCL 40 MEQ PO (05:39)
[2023-11-05] MEDS: LIDOCAINE 4% PATCH 1 PATCH TOPICAL (08:40)
[2023-11-05] MEDS: ELIQUIS 5 MG PO ×2 (08:41→19:52)
[2023-11-05] MEDS: CARDIZEM CD 120 MG PO (08:41)
--- NOTE | 2023-11-05 09:03 | W.PN.ID1 ---
Date of Service
Date of Service: November 05, 2023
Today's Communication
Continue Unasyn.
Assessment / Plan
Exudative Pleural Effusion - complicated
Pneumonia
Fever - resolved
Leukocytosis - overall improving
- hasnt produced a sputum
- pleural fluid no growth to date
- blood cultures x2 no growth to date
- path no malignant cells
- has drainage with chest tube - managed by pulmonary
- continue with unasyn while chest tube in place, after removal can switch to augmentin for another two weeks
- follow clinically
Chief Complaint
-: Pneumonia and Other (complicated pneumonia, exudative effusion)
Subjective / Review of Systems
c/o discomfort at chest tube site. No cough.
Vital Signs / Physical Exam
Vital Signs
Vital Signs
Temp Pulse Resp BP Pulse Ox
99.3 F 75 17 151/71 95
11/05/23 03:14 11/05/23 06:00 11/04/23 15:25 11/05/23 03:05 11/04/23 15:25
Physical Exam
Constitutional: No Acute Distress
Pulmonary: Other (decreased BS right base; CT tube in place.)
Gastrointestinal: Soft, Non Tender and Non Distended
Objective Data
Lab Data
Lab Results
11/05/23 03:57
ESR Cancelled 11/01/23 13:42
APTT 40.8 Sec (23.4-35.0) H 11/03/23 16:39
Estimated Creat Clear 89 ml/min 11/05/23 03:57
Total Bilirubin 0.5 mg/dl (0.2-1.3) 11/05/23 03:57
AST 51 U/L (14-36) H 11/05/23 03:57
ALT 32 U/L (0-35) 11/05/23 03:57
Alkaline Phosphatase 165 U/L (38-126) H 11/05/23 03:57
C-Reactive Protein > 270.00 mg/L (0.0-10.00) H 11/02/23 03:00
Most recent labs reviewed.
Micro Results:
10/30/23 22:05 Blood Culture - Final
Blood/Venous No Growth - Final Report
10/30/23 21:23 Blood Culture - Final
Blood/Venous No Growth - Final Report
10/30/23 16:25 Body Fluid Culture - Final
Pleural Fluid No Growth After 72 Hours
Gram Stain - Final
10/30/23 16:25 Fungal Smear - Final
Pleural Fluid No yeast or fungal elements seen.
Fungal Culture - Preliminary
Culture in progress.
Positive cultures are reported as soon as detected.
Final report to follow in four to five weeks.
10/30/23 14:01 MRSA Screen - Final
Nose No Methicillin Resistant Staphylococcus aureus isolated.
10/30/23 22:13 Legionella Urinary Antigen - Final
Urine Negative for Legionella pneumophila Serogroup 1 antigen.
A negative result does not rule out the possiblity of
Legionella infection due to other serogroups or species of
Legionella. Clinical correlation is recommended.
Streptococcus pneumoniae Antigen (M - Final
Negative for Streptococcus pneumoniae antigen.
A negative result does not exclude infection with
Streptococcus pneumoniae. Clinical correlation is
recommended.
10/30/23 21:23 Influenza Types A & B ([facility]EE) - Final
Nasal Swab Negative for Influenza A & B, NAAT
Negative results must be combined with clinical observations
and patient history.
Nucleic Acid Amplification test (NAAT)performed on the
[employer] platform.
--- NOTE | 2023-11-05 09:55 | W.PN.PUL3 ---
Today's Communication / Plan
-
Will discuss with interventional radiology discontinuing chest tube today.
Continue antibiotic
Assessment
-
Assessment:
Mrs Cassandra Ponce is a 63/W adm 10-27 with several d h/o fatigue, dyspnea and R sided CP. Denied cough, fever, NS, sick contacts, trauma. Adm CXR with R sided infiltrate/effusion, started on ceftriaxone/doxycycline. Interim rise in wbc and temp, atbs
adjusted to unasyn/doxy. IRad and Pulm consulted 10-29
Impression:
Community-acquired pneumonia RLL, RML
Complicated parapneumonic moderate R pleural effusion on CT
Exudate/culture negative
Status post chest tube placement
Status post thrombolysis/dornase alpha 11/02/2023
Leukocytosis
MRSA screening negative
RML bulla
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
Migraine
Chronic sinusitis, s/p surgery 1996 and 2016
Nephrolithiasis, ureteroscopy, lithotripsy
Cholelithiasis
Chronic back pain, L4-5 rhizotomy, DDD
Nonsmoker
Plan:
Hemodynamically stable.
Afebrile.
Leukocytosis improving
-
Status chest tube insertion 10/30/2023:
Follow R PF results, so far PMN 88%, LDH ^ (exudate), G 91, normal pH. Gstain negative, cx/cytology pending
Continue to follow chest tube output
Chest tube output post thrombolysis/dornase alpha 790 cc.
Chest tube output only 10 cc 11/04/2023
Chest x-ray 11/04/2023: Reviewed, showed persistent right lower lobe infiltrate. Loss of volume of the right lung suggest atelectasis as well.
Cannot rule out persistent loculated effusion.
CT chest 11/04/2023: Minimal pleural effusion loculation. Significant right lower lobe infiltrate.
Chest x-ray 11/05/2023: Showed a small hydropneumothorax. Right lower lobe infiltrate.
-
Will discuss with interventional radiology discontinuing chest tube.
-
Cultures negative
Cytology negative
-
Continue current antibiotics-per infectious disease.Unasyn.
Leg/Strep UAg negative
Continue to follow cultures
Cytology negative
-
New onset atrial fibrillation. Heart rate improved.
On oral anticoagulation.
Management per cardiology. Recommending outpatient follow-up and transition to oral anticoagulants 1 chest tube is discontinued
-
Pain management
Known h/o chronic back pain and migraine: on prn oral opiate/APAP, ibuprofen, butalbital/APAP/caffeine (fioricet) prn, enenumab sc, rimegepant, rizatriptan
On inpatient prn po oxycodone, prn NSAID (ketorolac), IV hydromorphone prn
Reports migraine usually exacerbates severely with intercurrent conditions
Management per primary team.
OOB as tolerated/IS encoraged.
Physical therapy as tolerated
Dr. Hernandez updated at the bedside 11/03/2023.
Patient will need outpatient pulmonary follow-up after discharge.
Subjective Data
-
Date of Service:
Date of Service: November 05, 2023
Chief Complaint: Pulmonary Follow Up
Subjective:
No new complaints.
Stable overnight
Review of Systems
General: Fever (n)
Cardiopulmonary: Dyspnea (none at rest)
GI: Abdominal Pain (n) and Nausea (n)
Neuro: Headache (n)
Objective Data
Data Reviewed
Vital Signs / I&O / Oxygen:
Vital Signs
Temp Pulse Resp BP Pulse Ox
99.4 F 75 17 151/71 95
11/05/23 07:24 11/05/23 06:00 11/04/23 15:25 11/05/23 03:05 11/04/23 15:25
Intake and Output
11/04/23 11/05/23 11/06/23
06:59 06:59 06:59
Intake Total 2099
Output Total
Balance 2089
SaO2 95
Nasal Cannula flow liters per 2
minute
Physical Exam
General: Respiratory Distress (n)
HEENT: Normocephalic and Moist Mucous Membranes
Cardiovascular: Regular Rhythm, Murmur (n) and Peripheral Edema (n)
Respiratory: Clear (decreased at R base), Non-Labored Respirations, Stridor (n) and Chest Tube (No early, serosanguineous fluid noted.)
GI: Soft, Non Distended and Non Tender
Neurology: Awake, AO x 3 and No Motor Deficits
Skin: Warm
Labs/Micro/Reports
Lab Data
11/05/23 03:57
Microbiology
10/30/23 22:05 Blood/Venous Blood Culture - Final
No Growth - Final Report
10/30/23 21:23 Blood/Venous Blood Culture - Final
No Growth - Final Report
10/30/23 16:25 Pleural Fluid Body Fluid Culture - Final
No Growth After 72 Hours
10/30/23 16:25 Pleural Fluid Gram Stain - Final
--- NOTE | 2023-11-05 10:57 | PN.IRAD.UPD ---
Update Note - IRAD
- -
Right chest tube removed at bedside. New clean dry dressing and Vaseline gauze.placed over site. Patient tolerated procedure well.
[2023-11-05 16:50] LABS: % Basophils 0.2 % (0-2); % Eosinophils 3.4 % (0-6); % Immature Granulocytes 1.6 % (0-0.5); % Lymphocytes 9.4 % (20.5-51.1); % Neutrophils 75.4 % (42.2-75.2); Absolute Eosinophils 0.5 10^3/uL (0-0.7); Absolute Immature Granulocytes 0.2 10^3/uL (0-0.05); Absolute Lymphocytes 1.4 10^3/uL (1.2-3.4); Absolute Monocytes 1.5 10^3/uL (0.1-0.6); Hematocrit 33.5 % (37.0-47.0); Hemoglobin 11.6 g/dL (12.0-16.0); Mean Corp Hgb Conc. 34.6 g/dL (33.0-37.0); Mean Corpuscular Volume 92.3 fL (81.0-99.0); Mean Platelet Volume 9.3 fL (7.4-10.4); Nucleated Red Blood Cells % 0 %; Platelet Count 361 10^3/uL (130-400); Red Blood Cell Count 3.63 10^6/uL (4.20-5.40); Red Cell Dist. Width 12.2 % (11.5-14.5); White Blood Cell Count 14.6 10^3/uL (4.8-10.8)
[2023-11-05 17:09] LABS: COVID-19 Antigen Negative (Negative)
--- NOTE | 2023-11-05 17:33 | CM ---
Patient with Dx RLL Pneumonia, Pleural Effusion, New Paroxysmal Atrial Fibrillation. Chest tube discontinued today. Febrile today. PT; likely no needs, OT; rec HH.
Met with patient and ; the patient and say that they are aware of possible d/c home tomorrow. Offered VN and patient/ declined.
No CM d/c needs identified.
Plan home.
[2023-11-05] MEDS: VITAMIN D3 (cholecalciferol) 50 MCG PO (18:01)
--- NOTE | 2023-11-05 18:12 | W.PN.HOSP.TC ---
Today's Communication/Plan
-
Chest tube out today
However, having relapse of fever
Hold off on discharge -- repeat blood cultures ordered, updated ID and pulm, continue current antibiotics
Monitor vital signs closely
Assessment / Plan
Assessment / Plan
Physical Exam
General: Not in acute distress
HEENT: Normocephalic
Respiratory: Decreased Breath Sounds (right lower lung) and Chest Tube
Cardiac: Regular Rhythm and S1/S2
GI: Soft and Nontender. Positive bowel sounds.
Musculoskeletal: No Edema
Skin: Warm and Dry
Neuro: AAO x 3
Psych: Calm
A/P
Patient is a 63y F with PMH significant for migraine headaches who presents to ED complaining of right-sided chest pain and SOB found to have initially uncomplicated small parapneumonic effusion. Rising WBC and fevers prompted repeat CXR with
showed increased size effusion now s/p chest tube insertion.
CHEST CTA:
1. Moderate airspace consolidation in the anterior basilar segment of the right lower lobe and smaller airspace consolidations in the posterior and lateral basilar segments most consistent with RIGHT LOWER LOBE PNEUMONIA.
2. SMALL RIGHT PARAPNEUMONIC PLEURAL EFFUSION.
3. Mild left to right mediastinal shift secondary to right lung volume loss.
4. Moderate mosaic attenuation throughout the left lung consistent with obstructive small airways disease.
ABDOMEN and PELVIS CTA:
1. 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
2. Small amount of cholelithiasis.
3. 4.7 mm nonobstructing left upper pole intrarenal calculus.
4. Previous ELIZABETH-BSO.
5. Grade 1 anterolisthesis of L4 on L5 secondary to moderate to severe facet joint arthrosis.
6. Moderate discogenic degenerative disease and severe right-sided facet joint arthrosis at L5/S1.
RUQ US
IMPRESSION:
1. No sonographic evidence for cholelithiasis, acute cholecystitis, or biliary obstruction.
2. 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
RLL Pneumonia
Complicated Exudative Pleural Effusion status post thrombolysis/dornase alpha 11/02/2023
Pleurisy secondary to the above
- Continue Unasyn
- Status post chest tube insertion on 10/29 by IR: appears to be exudative with PMNs, but gram stain negative
- CT chest 11/04/2023: Minimal pleural effusion loculation. Significant right lower lobe infiltrate.
- Chest x-ray 11/05/2023: Showed a small hydropneumothorax. Right lower lobe infiltrate.
- Chest tube taken out by IR on 11/05/23
- pleural fluid cultures WITH NO GROWTH
- flu, covid negative; blood cultures WITH NO GROWTH
- Cytology negative
- pain control with toradol PRN; dilaudid PRN severe pain (chest tube discomfort - patient has very high tolerance for opiates)
- Patient will need radiographic follow-up in the outpatient setting.
Relapse of Fever on 11/05/23
-Repeat blood cultures x2 ordered
-ID on board and updated
New Paroxysmal Atrial Fibrillation
- Status post Cardizem Drip
- Continue PO Cardizem and Beta Precious Propranolol
- CHADVASC 2
- Status post Heparin Drip
- Continue Eliquis
- Echocardiogram unremarkable
Hypokalemia
- Monitor and replace
- Monitor BMP
- Recheck magnesium
Migraine Headache with Acute Symptoms
- exacerbated in setting of infection
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
Chronic Sinus Disease
- Stable. Continue usual outpatient medications.
- Immunoglobulins normal
Chronic Back Pain
Concern for Opioid Dependence
- Stable. Continue usual medications including oxycodone PRN pain.
- Follow-up with usual Pain Management doctor as an outpatient.
DVT Prophylaxis: Eliquis
Code Status: Full
Anticipated Discharge: 24 - 48 hours
Subjective/Interval History
-
Date of Service: November 05, 2023
Patient was seen and examined. She reported no new significant symptoms or complaints, but in the afternoon she developed fever after chest tube was taken out.
Objective Data
-
Labs:
Laboratory Results
11/05/23
16:40
WBC 14.6 H
Hgb 11.6 L
Hct 33.5 L
Plt Count 361 D
Vital Signs:
Vital Signs
Temp Pulse Resp BP Pulse Ox
100.4 F H 84 17 123/61 95
11/05/23 15:27 11/05/23 16:00 11/04/23 15:25 11/05/23 15:20 11/04/23 15:25
I&O
11/04/23 11/05/23 11/06/23
06:59 06:59 06:59
Intake Total 2099 / 2099 480 / 480
Output Total
Balance 2089 / 2089 480 / 480
--- NOTE | 2023-11-05 18:26 | PTCARENOTE ---
pt chest tube removed earlier today. dressing c,d,,i. pt had temp of 100.[address] Najera made aware. blood cultures drawn. covid and flu swabs sent and are negative. pt being transferred to tele floor. report given to Char on 2
[address].
[2023-11-05] MEDS: LIPITOR 20 MG PO (22:07)
[2023-11-05] MEDS: ZYRTEC 10 MG PO (22:07)
[2023-11-05] MEDS: VALIUM 4 MG PO (22:07)
[2023-11-05] MEDS: INDERAL LA 400 MG PO (22:08)
[2023-11-06] MEDS: DILAUDID 1 MG IV ×5 (03:00→16:42)
[2023-11-06] MEDS: UNASYN IV ×2 (03:02→09:34)
[2023-11-06 03:55] VITALS: BP 158/84
[2023-11-06 07:55] VITALS: BP 165/95
[2023-11-06 08:00] VITALS: BP 163/103; BP 165/103; BP 165/95; PULSE 73; PULSE 74
[2023-11-06] MEDS: CARDIZEM CD 120 MG PO (08:02)
[2023-11-06] MEDS: ELIQUIS 5 MG PO (08:02)
[2023-11-06] MEDS: LIDOCAINE 4% PATCH 1 PATCH TOPICAL (08:04)
[2023-11-06 08:46] LABS: Blood Urea Nitrogen < 2 mg/dl (7-17); Calcium 9.1 mg/dl (8.4-10.2); Carbon Dioxide 29 mmol/L (22-30); Chloride 96 mmol/L (98-107); Estimated Creatinine Clearance 89 ml/min; Glucose 125 mg/dl (70-99); Magnesium 2.5 mg/dl (1.6-2.3); Sodium 135 mmol/L (135-145); eGFR > 60.00
[2023-11-06] MEDS: DILAUDID IV (09:34)
--- NOTE | 2023-11-06 10:04 | W.PN.PUL3 ---
Today's Communication / Plan
-
Chest tube removed yesterday
Continue antibiotic
NOAC
Pt being prepared for DC home
Pulmonary service will now sign off. Please reconsult if there are any additional questions/concerns, or if patient's respiratory status deteriorates.
Assessment
-
Assessment:
Mrs Cassandra Ponce is a 63/W adm 10-27 with several d h/o fatigue, dyspnea and R sided CP. Denied cough, fever, NS, sick contacts, trauma. Adm CXR with R sided infiltrate/effusion, started on ceftriaxone/doxycycline. Interim rise in wbc and temp, atbs
adjusted to unasyn/doxy. IRad and Pulm consulted 10-29
Impression:
Community-acquired pneumonia RLL, RML
Complicated parapneumonic moderate R pleural effusion on CT
Exudate/culture negative
Status post chest tube placement
Status post thrombolysis/dornase alpha 11/02/2023
Leukocytosis
MRSA screening negative
RML bulla
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
Migraine
Chronic sinusitis, s/p surgery 1996 and 2016
Nephrolithiasis, ureteroscopy, lithotripsy
Cholelithiasis
Chronic back pain, L4-5 rhizotomy, DDD
Nonsmoker
Plan:
Hemodynamically stable.
Afebrile.
Leukocytosis improving
-
Status chest tube insertion 10/30/2023:
Follow R PF results, so far PMN 88%, LDH ^ (exudate), G 91, normal pH. Gstain negative, cx shows NGTD; cytology negative for malignant cells
s/p thrombolysis/dornase alpha 790 cc.
Chest x-ray 11/04/2023: Reviewed, showed persistent right lower lobe infiltrate. Loss of volume of the right lung suggest atelectasis as well.
Cannot rule out persistent loculated effusion.
CT chest 11/04/2023: Minimal pleural effusion loculation. Significant right lower lobe infiltrate.
Chest x-ray 11/05/2023: Showed a small hydropneumothorax. Right lower lobe infiltrate.
Chest tube removed by IR on 11/05/2023
-
Continue current antibiotics-per infectious disease.Unasyn.
Leg/Strep UAg negative
Continue to follow cultures
Cytology negative
-
New onset atrial fibrillation. Heart rate improved.
On oral anticoagulation.
Management per cardiology. Recommending outpatient follow-up - she has been on Eliquis since 11/03/2023
-
Pain management
Known h/o chronic back pain and migraine: on prn oral opiate/APAP, ibuprofen, butalbital/APAP/caffeine (fioricet) prn, enenumab sc, rimegepant, rizatriptan
On inpatient prn po oxycodone, prn NSAID (ketorolac), IV hydromorphone prn
Reports migraine usually exacerbates severely with intercurrent conditions
Management per primary team.
OOB as tolerated/IS encoraged.
Physical therapy as tolerated
Dr. Trejo updated at the bedside 11/06/2023.
Patient will need outpatient pulmonary follow-up after discharge.
Patient is being prepared for discharge home. Pulmonary service will now sign off. Thank you for allowing us to be involved in the care of this patient. Please reconsult if there are any additional questions/concerns, or if patient's respiratory
status deteriorates.
Total time spent today was 25 minutes for this encounter. Time includes reviewing laboratory test/imaging results, reviewing pertinent medical records, obtaining and reviewing medical history, performing an appropriate exam, ordering medications,
tests and procedures. Time also includes documentation of this encounter, coordinating patient care and communicating with other healthcare professionals. Total time does not include separately billed tests performed on this date of service.
Subjective Data
-
Date of Service:
Date of Service: November 06, 2023
Chief Complaint: Pulmonary Follow Up
Subjective:
Patient seen today. at bedside. Patient very eager to go home. She has migraine and this is the main reason for her wanting to leave. She denies shortness breath, chest pain, she is able to walk around the unit without respiratory
distress.
Review of Systems
General: Other (Negative unless mentioned above)
Objective Data
Data Reviewed
Vital Signs / I&O / Oxygen:
Vital Signs
Temp Pulse Resp BP Pulse Ox
99.0 F 73 16 165/95 92
11/06/23 07:55 11/06/23 08:02 11/06/23 07:55 11/06/23 08:02 11/06/23 07:55
Intake and Output
11/05/23 11/06/23 11/07/23
06:59 06:59 06:59
Intake Total 480 / 480
Balance 480 / 480
SaO2 92
Nasal Cannula flow liters per 2
minute
Physical Exam
General: Respiratory Distress (n) and Comfortable
HEENT: Normocephalic and Moist Mucous Membranes
Cardiovascular: S1-S2, Murmur (n) and Peripheral Edema (n)
Respiratory: Crackles (RLL-RML), Rhonchi (RLL-RML), Non-Labored Respirations and Stridor (n)
GI: Soft, Non Distended and Non Tender
Neurology: AO x 3 and No Motor Deficits
Skin: Warm and Dry
Labs/Micro/Reports
Lab Data
11/06/23 07:41
Microbiology
11/05/23 16:40 Nasal Swab Influenza Types A & B (AMEE) - Final
Negative for Influenza A & B, NAAT
Negative results must be combined with clinical observations
and patient history.
Nucleic Acid Amplification test (NAAT)performed on the
[employer] platform.
10/30/23 22:05 Blood/Venous Blood Culture - Final
No Growth - Final Report
10/30/23 21:23 Blood/Venous Blood Culture - Final
No Growth - Final Report
10/30/23 16:25 Pleural Fluid Body Fluid Culture - Final
No Growth After 72 Hours
10/30/23 16:25 Pleural Fluid Gram Stain - Final
[2023-11-06 11:32] VITALS: BP 160/85
--- NOTE | 2023-11-06 14:16 | W.PN.HOSP.TC ---
Today's Communication/Plan
-
Discharge today
Assessment / Plan
Assessment / Plan
Physical Exam
General: Not in acute distress
HEENT: Normocephalic
Respiratory: Clear except somewhat decreased on the right side
Cardiac: Regular Rhythm and S1/S2
GI: Soft and Nontender. Positive bowel sounds.
Musculoskeletal: No Edema
Skin: Warm and Dry
Neuro: AAO x 3
Psych: Calm
A/P
Patient is a 63y F with PMH significant for migraine headaches who presents to ED complaining of right-sided chest pain and SOB found to have initially uncomplicated small parapneumonic effusion. Rising WBC and fevers prompted repeat CXR with
showed increased size effusion now s/p chest tube insertion.
CHEST CTA:
1. Moderate airspace consolidation in the anterior basilar segment of the right lower lobe and smaller airspace consolidations in the posterior and lateral basilar segments most consistent with RIGHT LOWER LOBE PNEUMONIA.
2. SMALL RIGHT PARAPNEUMONIC PLEURAL EFFUSION.
3. Mild left to right mediastinal shift secondary to right lung volume loss.
4. Moderate mosaic attenuation throughout the left lung consistent with obstructive small airways disease.
ABDOMEN and PELVIS CTA:
1. 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
2. Small amount of cholelithiasis.
3. 4.7 mm nonobstructing left upper pole intrarenal calculus.
4. Previous ELIZABETH-BSO.
5. Grade 1 anterolisthesis of L4 on L5 secondary to moderate to severe facet joint arthrosis.
6. Moderate discogenic degenerative disease and severe right-sided facet joint arthrosis at L5/S1.
RUQ US
IMPRESSION:
1. No sonographic evidence for cholelithiasis, acute cholecystitis, or biliary obstruction.
2. 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
Right Lower Lobe Pneumonia with Suspected Parapneumonic Effusion
Complicated Exudative Pleural Effusion status post thrombolysis/dornase alpha 11/02/2023
Pleurisy secondary to the above
Small Left Pleural Effusion
Pneumothorax
- Augmentin 87 mg BID x 14 more days
- Status post chest tube insertion on 10/29 by IR: appears to be exudative with PMNs, but gram stain negative
- CT chest 11/04/2023: Minimal pleural effusion loculation. Significant right lower lobe infiltrate.
- Chest x-ray 11/05/2023: Showed a small hydropneumothorax. Right lower lobe infiltrate.
- Chest tube taken out by IR on 11/05/23
- pleural fluid cultures WITH NO GROWTH
- flu, covid negative; blood cultures WITH NO GROWTH
- Repeat blood cultures were drawn due to fever on November 05, 2023 --> pending
- Cytology negative
- pain control with toradol PRN; dilaudid PRN severe pain (chest tube discomfort - patient has very high tolerance for opiates)
- Patient will need radiographic follow-up in the outpatient setting.
- Okay to discharge today as per ID and Pulm
- No need for home oxygen: saturating in the 90s on both rest and ambulation
Relapse of Fever on 11/05/23 - RESOLVED
-Repeat blood cultures x2 ordered
-ID on board and updated: okay to discharge today as no more fevers
New Paroxysmal Atrial Fibrillation
- Status post Cardizem Drip
- Continue PO Cardizem and Beta Precious Propranolol
- CHADVASC 2
- Status post Heparin Drip
- Continue Eliquis
- Echocardiogram unremarkable
Hypokalemia - RESOLVED
- Monitor and replace
- Recheck CBC and BMP in 2 to 3 days
- Recheck magnesium --> elevated
Migraine Headache with Acute Symptoms
- exacerbated in setting of infection
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
Chronic Sinus Disease
- Stable. Continue usual outpatient medications.
- Immunoglobulins normal
Chronic Back Pain
Concern for Opioid Dependence
- Stable. Continue usual medications including oxycodone PRN pain.
- Follow-up with usual Pain Management doctor as an outpatient.
DVT Prophylaxis: Eliquis
Code Status: Full
I spoke to both patient and her today; all questions and concerns were answered to satisfaction.
More than 30 minutes spent in discharge including
Final examination of the patient
Summarizing hospital stay
Instructions for continuing care to all relevant caregivers
Preparation of discharge records, prescriptions, and referral forms
Total time spent (in minutes): 38
Anticipated Discharge: Today
Subjective/Interval History
-
Date of Service: November 06, 2023
Patient was seen and examined. She reported ongoing Migraine headaches and would like to go home [place]. She denied any new chest pain or shortness of breath.
Objective Data
-
Labs:
Laboratory Results
11/06/23 11/06/23
07:41 14:27
WBC Cancelled
Hgb Cancelled
Hct Cancelled
Plt Count Cancelled
Sodium 135
Potassium 4.0
Chloride 96 L
Carbon Dioxide 29
BUN < 2 L
Creatinine 0.5 L
Glucose 125 H
Calcium 9.1
Vital Signs:
Vital Signs
Temp Pulse Resp BP Pulse Ox
99.5 F 74 16 160/85 93
11/06/23 11:32 11/06/23 11:32 11/06/23 11:32 11/06/23 11:32 11/06/23 11:32
I&O
11/05/23 11/06/23 11/07/23
06:59 06:59 06:59
Intake Total 480 / 480
Balance 480 / 480
[2023-11-06 15:18] VITALS: BP 148/76
--- NOTE | 2023-11-06 16:34 | W.DS.TRANS ---
DC Summary - [employer]
-
Discharge Instructions:
Discharge Diagnosis/Procedures Right Lower Lobe Pneumonia with Suspected
Parapneumonic Effusion
Complicated Exudative Pleural Effusion status
post thrombolysis/dornase alpha 11/02/2023
Pleurisy secondary to the above
Small Left Pleural Effusion
Pneumothorax
Relapse of Fever on 11/05/23 - RESOLVED
New Paroxysmal Atrial Fibrillation
Hypokalemia - RESOLVED
Migraine Headache with Acute Symptoms
Chronic Sinus Disease
Chronic Back Pain
Concern for Opioid Dependence
ABDOMEN and PELVIS CTA (as per radiologist's
report):
1. Mild enlargement of the right lobe of the
liver suggesting a Darryn's morphology.
2. Small amount of cholelithiasis.
3. 4.7 mm nonobstructing left upper pole
intrarenal calculus.
4. Previous ELIZABETH-BSO.
5. Grade 1 anterolisthesis of L4 on L5
secondary to moderate to severe facet joint
arthrosis.
6. Moderate discogenic degenerative disease
and severe right-sided facet joint arthrosis at
L5/S1.
Diet As tolerated,Regular
Activity As tolerated
Driving Restrictions Not until seen by your Dr
Blood Work Recheck CBC, CMP and Magnesium with your PCP in
2 to 3 days from hospital discharge
Instructions:
Stand-Alone Forms:
Changes to Home Medications: Yes
Discharge Medications:
DC Medications w/original date entered in [facility]
cetirizine 10 mg tablet 10 mg PO HS Allergies 07/30/11
rizatriptan 10 mg disintegrating tablet (Maxalt-SUPERVISOR PARACHUTE MANUFACTURING) 10 mg PO DAILYPRN PRN migraines 10/30/11
levocetirizine 5 mg tablet (Xyzal) 5 mg PO HS Allergies 04/06/17
diazepam 2 mg tablet 4 mg PO HS Sleep 06/04/18
atorvastatin 20 mg tablet (Lipitor) 20 mg PO HS High Cholesterol 06/05/22
erenumab-aooe 140 mg/mL subcutaneous auto-injector (Aimovig Autoinjector) 140 mg SC Q28D Autoimmune Disorder 06/05/22
ibuprofen 200 mg tablet 800 mg PO DAILY Pain 08/18/23
oxycodone-acetaminophen 10 mg-325 mg tablet 1 tab PO 5/D PRN moderate pain 08/18/23
propranolol 80 mg capsule,24 hr,extended release 400 mg PO HS Blood Pressure 08/18/23
rimegepant 75 mg disintegrating tablet (Nurtec ODT) 75 mg PO DAILY PRN migraine 08/18/23
budesonide 0.5 mg/2 mL suspension for nebulization 0.5 mg irrigation DAILY Lung/Breathing Issues 10/29/23
cwbfuvnwkc-vrmvhgwbgldcw-wbwflxsb 50 mg-300 mg-40 mg capsule 1 cap PO TID PRN migraine 10/29/23
cholecalciferol (vitamin D3) 50 mcg (2,000 unit) tablet 50 mcg PO HS Supplement 10/29/23
clobetasol-emollient 0.05 % topical cream 1 applic topical .2 TIMES A WEEK PRN vaginal soreness 10/29/23
estradiol 0.01% (0.1 mg/gram) vaginal cream 1 g vaginal .2 TIMES A WEEK PRN vaginal area 10/29/23
ondansetron 4 mg disintegrating tablet 4 mg PO Q4HPRN PRN nausea/vomiting 10/29/23
polyethylene glycol 3350 17 gram oral powder packet (Miralax) 17 g PO DAILY Constipation 10/29/23
amoxicillin 875 mg-potassium clavulanate 125 mg tablet 1 tab PO Q12H 14 days #28 tabs 11/06/23
apixaban 5 mg tablet (Eliquis) 5 mg PO BID #60 tabs 11/06/23
diltiazem HCl 120 mg capsule,extended release 24 hr (Cartia XT) 120 mg PO DAILY #30 caps 11/06/23
Home Medication Changes
Amoxicillin-Pot Clavulanate, Diltiazem and Eliquis are new medications.
Ibuprofen on hold.
Pending Results: Yes
Additional Pending Results:
Microbiology/culture results from hospitalization
Total time spent discharging patient (in min): 38
--- NOTE | 2023-11-07 09:04 | CM ---
Patient was medically cleared for discharge to home with no additional skilled needs on 11/06/23. Patient declined VN services. transported home.
--- NOTE | 2023-11-09 10:42 | W.DCSUMMARY ---
Discharge Summary
Discharge Data
Date of Admission: 10/29/23
Date of Discharge: 11/06/23
Total time spent discharging patient (in min): 38
-
Pending Results: Yes
Additional Pending Results:
Microbiology/culture results from hospitalization
Hospital Course
63 y/o female with past medical history significant for migraine headaches and chronic sinus disease who presented to the [facility] Emergency Department complaining of right sided chest pain and shortness of breath. Patient was admitted
with pneumonia and pleural effusion, and started on antibiotics. CTA imaging and right upper quadrant ultrasound were done -- please see official reports of those for more details. Antibiotics needed to be broadened because of worsening leukocytosis
and fever. Pulmonary and Infectious Diseases physicians were consulted. Patient had a chest tube placed by interventional radiology, given her worsening pleural effusion. Patient was found to have new onset Atrial Fibrillation on November 01, 2023,
cardizem drip was started and Heparin Drip was also started for anticoagulation; cardiology was also consulted. Patient's anticoagulation (for atrial fibrillation) was later transitioned from Heparin Drip to Eliquis. Repeat CT Chest was done on
11/04/23, and patient's chest tube was able to be discontinued on 11/05/23. Patient had mild fevers afterwards, which resolved, and on home oxygen assessment test, she was determined not to need any home oxygen on discharge.
Discharge Plan
-
Patient Disposition: Home (Routine Discharge)
Discharge Diagnosis/Procedures: Right Lower Lobe Pneumonia with Suspected Parapneumonic Effusion
Complicated Exudative Pleural Effusion status post thrombolysis/dornase alpha 11/02/2023
Pleurisy secondary to the above
Small Left Pleural Effusion
Pneumothorax
Relapse of Fever on 11/05/23 - RESOLVED
New Paroxysmal Atrial Fibrillation
Hypokalemia - RESOLVED
Migraine Headache with Acute Symptoms
Chronic Sinus Disease
Chronic Back Pain
Concern for Opioid Dependence
ABDOMEN and PELVIS CTA (as per radiologist's report):
1. 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
2. Small amount of cholelithiasis.
3. 4.7 mm nonobstructing left upper pole intrarenal calculus.
4. Previous ELIZABETH-BSO.
5. Grade 1 anterolisthesis of L4 on L5 secondary to moderate to severe facet joint arthrosis.
6. Moderate discogenic degenerative disease and severe right-sided facet joint arthrosis at L5/S1.
Condition: Fair
Diet: As tolerated and Regular
Activity: As tolerated
Driving Restrictions: Not until seen by your Dr
Blood Work: Recheck CBC, CMP and Magnesium with your PCP in 2 to 3 days from hospital discharge
Referrals:
Jonathon Hall MD [Family Provider] - in two to three days
Dangelo Granados MD [Active] - in two to three weeks (May see MANAGEMENT LEAD)
Additional Discharge Medication Instructions: Amoxicillin-Pot Clavulanate, Diltiazem and Eliquis are new medications.
Ibuprofen on hold.
Prescriptions:
New
amoxicillin-pot clavulanate 875-125 mg tablet
1 tab PO Q12H 14 Days Qty: 28 0RF
diltiazem HCl [Cartia XT] 120 mg Capsule,Extended Release 24hr
120 mg PO DAILY Qty: 30 1RF
Eliquis 5 mg Tablet
5 mg PO BID Qty: 60 1RF
Continued
cetirizine 10 MG tablet
10 mg PO HS
rizatriptan [Maxalt-HEARING THERAPIST] 10 MG tablet,disintegrating
10 mg PO DAILYPRN PRN (Reason: migraines)
levocetirizine [Xyzal] 5 MG tablet
5 mg PO HS
diazepam 2 MG tablet
4 mg PO HS
atorvastatin [Lipitor] 20 mg Tablet
20 mg PO HS
Aimovig Autoinjector 140 mg/mL auto-injector
140 mg SC Q28D
Patient Comments:
10/29/2023, per pt., she takes this med. on the first of the month.
oxycodone-acetaminophen 10-325 mg tablet
1 tab PO 5/D PRN (Reason: moderate pain)
propranolol 80 mg capsule,extended release 24hr
400 mg PO HS
Nurtec ODT 75 mg tablet,disintegrating
75 mg PO DAILY PRN (Reason: migraine)
polyethylene glycol 3350 [Miralax] 17 gram Powder In Packet
17 g PO DAILY
Patient Comments:
10/29/2023, 1 tsp per pt.
estradiol 0.01 % (0.1 mg/gram) Cream
1 g VAGINAL .2 TIMES A WEEK PRN (Reason: vaginal area)
ondansetron 4 mg Tablet,Disintegrating
4 mg PO Q4HPRN PRN (Reason: nausea/vomiting)
clobetasol-emollient 0.05 % Cream
1 applic TOPICAL .2 TIMES A WEEK PRN (Reason: vaginal soreness)
Patient Comments:
10/29/2023, pt. applies this med. after she applies her Estradiol cream.
cholecalciferol (vitamin D3) 50 mcg (2,000 unit) Tablet
50 mcg PO HS
uinwxlhqxz-nlhyprrqcjvwv-xlhk 50-300-40 mg Capsule
1 cap PO TID PRN (Reason: migraine)
budesonide 0.5 mg/2 mL Suspension For Nebulization
0.5 mg irrigation DAILY
Patient Comments:
10/29/2023, pt. uses this med. for nasal irrigation.
Held
ibuprofen 200 mg tablet
800 mg PO DAILY
Hold Instructions: Resume on 11/20/23. Check with your primary care physician before resuming this medication.
Discharge Orders:
Discharge Patient (As Directed); Ordered 11/06/23
Ordered By: Jn Najera
Discharge Date and Time
Discharge Date/Time: 11/06/23 17:07
Print Language: [id number]
== END 2023-11-06 17:07 | disposition home or self-care (01) | DRG 167 ==
LOC: 2 NORTH 02:29
PROVIDERS: Emergency Medicine; Nurse Practitioner; Physician Assistant; Radiology Vascular & Interventional Radiology; Student in an Organized Health Care Education/Training Program; ADMITTING PHYSICIAN Hospitalist; ATTENDING PHYSICIAN Hospitalist; CONSULT PHYSICIAN Internal Medicine Cardiovascular Disease; CONSULT PHYSICIAN Internal Medicine Pulmonary Disease; EMERGENCY PHYSICIAN Emergency Medicine; FAMILY PHYSICIAN Family Medicine; OTHER PHYSICIAN Student in an Organized Health Care Education/Training Program
PROC: 0W9930Z Drainage of Right Pleural Cavity with Drainage Device, Percutaneous Approach (ICD-10-PCS; 2023-10-30)
PROC: 3E0L3GC Introduction of Other Therapeutic Substance into Pleural Cavity, Percutaneous Approach (ICD-10-PCS; 2023-11-02)
PROC: 0BN Respiratory System, Release (ICD-10-PCS; 2023-11-02)
PROC: 3E0L317 Introduction of Other Thrombolytic into Pleural Cavity, Percutaneous Approach (ICD-10-PCS; 2023-11-02)
DX: J18.9 Pneumonia, unspecified organism (principal); F11.20 Opioid dependence, uncomplicated; J91.8 Pleural effusion in other conditions classified elsewhere; J93.9 Pneumothorax, unspecified; G43.909 Migraine, unspecified, not intractable, without status migrainosus; E78.00 Pure hypercholesterolemia, unspecified; I48.0 Paroxysmal atrial fibrillation; I11.9 Hypertensive heart disease without heart failure; J32.9 Chronic sinusitis, unspecified; E66.9 Obesity, unspecified; J43.9 Emphysema, unspecified; E87.6 Hypokalemia; G89.29 Other chronic pain; K80.20 Calculus of gallbladder without cholecystitis without obstruction; Z82.49 Family history of ischemic heart disease and other diseases of the circulatory system; Z79.51 Long term (current) use of inhaled steroids; Z79.52 Long term (current) use of systemic steroids; Z88.8 Allergy status to other drugs, medicaments and biological substances; Z68.33 Body mass index [BMI] 33.0-33.9, adult; Z11.52 Encounter for screening for COVID-19; Z87.442 Personal history of urinary calculi
CPT/HCPCS: 88305; 32557; 32561; 71045; 71046; 71250; 71275; 74174; 76700; 80048; 80053; 81003; 81015; 82784; 82945; 82962; 83615; 83690; 83735; 83986; 84157; 84443; 84484; 85025; 85027; 85652; 85730; 86140; 87015; 87040; 87070; 87102; 87205; 87206; 87449; 87502; 87811; 87899; 88112; 89051; 93005; 93306; 94640; 96361; 96365; 96366; 96367; 96375; 96376; 97163; 97166; 97530; 99152; 99153; 99285; C1729; C1769; J2997; Q9967

== ENCOUNTER → 2023-12-21 12:30 | Outpatient (REF) | payer BC, SELFPAY | LOC: RAD 12:30 | PROVIDERS: ATTENDING PHYSICIAN Internal Medicine Critical Care Medicine | DX: Z87.01 Personal history of pneumonia (recurrent) (principal); J94.8 Other specified pleural conditions; R07.81 Pleurodynia; R06.02 Shortness of breath; R09.02 Hypoxemia | CPT/HCPCS: 71250 ==

== ENCOUNTER 2024-01-27 11:11 | Inpatient (IN) | payer BC, SELFPAY ==
[2024-01-27] VITALS (18 sets, daily range): BP systolic 112–181; BP diastolic 60–109; BMI 32.4; BMI 31.9
[2024-01-27] MEDS: ZOFRAN 4 MG IV ×2 (04:05→04:51)
[2024-01-27 04:11] LABS: % Basophils 0.3 % (0-2); % Eosinophils 2.2 % (0-6); % Immature Granulocytes 0.5 % (0-0.5); % Lymphocytes 7.4 % (20.5-51.1); % Monocytes 5.7 % (1.7-9.3); % Neutrophils 83.9 % (42.2-75.2); Absolute Basophils 0.1 10^3/uL (0-0.2); Absolute Eosinophils 0.4 10^3/uL (0-0.7); Absolute Immature Granulocytes 0.1 10^3/uL (0-0.05); Absolute Lymphocytes 1.4 10^3/uL (1.2-3.4); Absolute Monocytes 1.1 10^3/uL (0.1-0.6); Absolute Neutrophils 16.2 10^3/uL (1.4-6.5); Hematocrit 41.7 % (37.0-47.0); Hemoglobin 14.8 g/dL (12.0-16.0); Mean Corp Hgb Conc. 35.5 g/dL (33.0-37.0); Mean Corpuscular Volume 90.1 fL (81.0-99.0); Mean Platelet Volume 10.9 fL (7.4-10.4); Nucleated Red Blood Cells % 0 %; Platelet Count 298 10^3/uL (130-400); Red Blood Cell Count 4.63 10^6/uL (4.20-5.40); Red Cell Dist. Width 12.4 % (11.5-14.5); White Blood Cell Count 19.3 10^3/uL (4.8-10.8)
--- NOTE | 2024-01-27 04:17 | ED.GENMED ---
History of Present Illness
<Melissa Ponce DO - Last Filed: 01/27/24 06:28>
General
Chief Complaint: Flank Pain
Source: patient, spouse and previous hospital records (Hospitalization October of this year for treatment of pneumonia, right pleural effusion requiring chest tube insertion, new onset A-fib started on Eliquis and Cardizem. Eliquis has since been
discontinued.)
Exam Limitations: none
Time Seen by Provider: 01/27/24 03:59
Nursing documentation reviewed up to this point in time: agreed with
History of Present Illness
History of Present Illness:
This is a 63-year-old woman who resides at home with her . She has history of chronic low back pain, narcotic dependent. History of migraine headaches as well as history of kidney stones with previous lithotripsy/ureteroscopy 2017. She
complains of intermittent left flank pain, moderate and brief in nature perhaps 1 week ago and then mild intermittent left flank pain over the past few days accompanied with some fatigue but onset of severe, persistent left flank pain waking her
from sleep tonight accompanied with nausea, dry heaves. Left flank pain radiates to her left lower quadrant and feels similar to previous episodes of renal colic.
She denies fever nor chills, no dysuria and urgency and or hematuria, no diarrhea or constipation.
Prior records reveal hospitalization in October of this year for right lower lobe pneumonia complicated by pleural effusion requiring chest tube insertion. New onset A-fib during that hospitalization, started on Cardizem, Eliquis. She has since
followed with her licensed chemical spray technician, Eliquis has been discontinued, Cardizem has been continued. She reports no recurrent episodes of A-fib and underwent event monitor showing no episodes of A-fib.
Past History
<Melissa Ponce DO - Last Filed: 01/27/24 06:28>
Past History
ED Past Medical History: Arrthythmia (Paroxysmal atrial fibrillation during hospitalization October 2023), Hypercholesterolemia, Other (Migraines, kidney stones, chronic sinusitis, chronic back pain- Narcotic dependent) and Other (Right lower lobe
pneumonia with pleural effusion requiring chest tube insertion October 2023)
ED Past Surgical History:
Social History
Tobacco: Non-smoker
Alcohol: None
Drug: None
Personal:
Living: with family
Employment: Employed
Family History
Family History: Hypertension
Phy Exam
<Melissa Ponce DO - Last Filed: 01/27/24 06:28>
Physical Exam
Physical Exam:
GENERAL: 63-year-old woman appears her stated age, awake and alert, appears in mild distress related to pain. Lying on her left side on stretcher, rocking a bit. Cooperative. is accompanying.
EYE: anicteric
NECK: Supple, nontender, no meningismus, no significant adenopathy.
ENT: oral mucosa is moist. No rhinorrhea.
CARDIAC: Regular rate and rhythm. no murmur.
LUNGS: Clear breath sounds bilaterally, no acute respiratory distress, no wheezes/rales/rhonchi
ABDOMEN: Rotund, soft, nondistended, without focal tenderness, no r/g, moderate left CVA tenderness with percussion. Normoactive BS.
NEUROLOGICAL: Alert and oriented x3, no focal neuro deficits. Gait is steady.
SKIN: Warm and dry, minimally pale in color, skin intact. No rash.
MUSCULOSKELETAL: No C/C/E. peripheral pulses are full and equal b/l. No palpable tenderness.
PSYCH: Mildly anxious related to pain. Cooperative.
Course
<Melissa Ponce DO - Last Filed: 01/27/24 06:28>
Orders/Labs/Results
Orders:
Orders
01/27/24 03:53
Ondansetron Injectable [Zofran] 4 mg .ROUTE .STK-MED ONE
01/27/24 04:04
Complete Blood Count/With Diff Urgent
01/27/24 04:05
Ondansetron Injectable [Zofran] 4 mg IV NOW STA
01/27/24 04:15
0.9% Sodium Chloride 1000 ml [Nss] 1,000 ml IV BOLUS
HYDROmorphone [Dilaudid] 1 mg IV NOW STA
01/27/24 04:43
Comprehensive Metabolic Panel Urgent
Comment: REDRAW
01/27/24 04:49
Ondansetron Injectable [Zofran] 4 mg .ROUTE .STK-MED ONE
01/27/24 04:51
Ondansetron Injectable [Zofran] 4 mg IV NOW STA
01/27/24 05:13
Ketorolac [Toradol] 30 mg .ROUTE .STK-MED ONE
01/27/24 05:14
Ketorolac [Toradol] 30 mg IV NOW STA
01/27/24 05:15
CT Abd/pelvis W Iv Cont Urgent
Comment:
Reason For Exam: acute L flank pain w N/V; elevated WBC
01/27/24 05:55
HYDROmorphone [Dilaudid] 1 mg IV NOW STA
Metoclopramide [Reglan] 10 mg IV NOW STA
01/27/24 06:08
Urinalysis Reflex To Culture Urgent
Date Specimen was Collected: 01/27/24
Time Specimen was Collected: 06:04
Urine Microscopic Reflex Cult Urgent
01/27/24 07:42
HYDROmorphone [Dilaudid] 1 mg IV NOW STA
Abnormal Lab Results
01/27/24 01/27/24 01/27/24
04:04 04:43 06:08
WBC 19.3 H 10^3/uL
(4.8-10.8)
MCH 32.0 H pg
(27.0-31.0)
MPV 10.9 H fL
(7.4-10.4)
Abs Immat Gran (auto) 0.1 H 10^3/uL
(0-0.05)
Absolute Neuts (auto) 16.2 H 10^3/uL
(1.4-6.5)
Absolute Monos (auto) 1.1 H 10^3/uL
(0.1-0.6)
Neutrophils % 83.9 H %
(42.2-75.2)
Lymphocytes % 7.4 L %
(20.5-51.1)
BUN 25 H mg/dl
(7-17)
Glucose 166 H mg/dl
(70-99)
Ur Occult Blood Reflex 1+ A
(Negative)
Leukocyte Esterase Rfl Trace A
(Negative)
Urine RBC 11-15 A /HPF
(0-2)
Urine Bacteria (Reflex) Few A
(Negative)
01/27/24 04:04
01/27/24 04:43
Vital Signs
Initial and Last Documented VS:
Initial Vital Signs
Temp Pulse Resp BP Pulse Ox
98.3 F 72 28 160/109 96
01/27/24 03:18 01/27/24 03:18 01/27/24 03:18 01/27/24 03:18 01/27/24 03:18
Last Documented Vital Signs
Temp Pulse Resp BP Pulse Ox
98.3 F 66 17 177/87 95
01/27/24 03:18 01/27/24 08:06 01/27/24 08:06 01/27/24 08:06 01/27/24 08:06
<Juan Luis David, DO - Last Filed: 01/27/24 08:57>
Orders/Labs/Results
Orders:
Orders
01/27/24 03:53
Ondansetron Injectable [Zofran] 4 mg .ROUTE .STK-MED ONE
01/27/24 04:04
Complete Blood Count/With Diff Urgent
01/27/24 04:05
Ondansetron Injectable [Zofran] 4 mg IV NOW STA
01/27/24 04:15
0.9% Sodium Chloride 1000 ml [Nss] 1,000 ml IV BOLUS
HYDROmorphone [Dilaudid] 1 mg IV NOW STA
01/27/24 04:43
Comprehensive Metabolic Panel Urgent
Comment: REDRAW
01/27/24 04:49
Ondansetron Injectable [Zofran] 4 mg .ROUTE .STK-MED ONE
01/27/24 04:51
Ondansetron Injectable [Zofran] 4 mg IV NOW STA
01/27/24 05:13
Ketorolac [Toradol] 30 mg .ROUTE .STK-MED ONE
01/27/24 05:14
Ketorolac [Toradol] 30 mg IV NOW STA
01/27/24 05:15
CT Abd/pelvis W Iv Cont Urgent
Comment:
Reason For Exam: acute L flank pain w N/V; elevated WBC
01/27/24 05:55
HYDROmorphone [Dilaudid] 1 mg IV NOW STA
Metoclopramide [Reglan] 10 mg IV NOW STA
01/27/24 06:08
Urinalysis Reflex To Culture Urgent
Date Specimen was Collected: 01/27/24
Time Specimen was Collected: 06:04
Urine Microscopic Reflex Cult Urgent
01/27/24 07:42
HYDROmorphone [Dilaudid] 1 mg IV NOW STA
Abnormal Lab Results
01/27/24 01/27/24 01/27/24
04:04 04:43 06:08
WBC 19.3 H 10^3/uL
(4.8-10.8)
MCH 32.0 H pg
(27.0-31.0)
MPV 10.9 H fL
(7.4-10.4)
Abs Immat Gran (auto) 0.1 H 10^3/uL
(0-0.05)
Absolute Neuts (auto) 16.2 H 10^3/uL
(1.4-6.5)
Absolute Monos (auto) 1.1 H 10^3/uL
(0.1-0.6)
Neutrophils % 83.9 H %
(42.2-75.2)
Lymphocytes % 7.4 L %
(20.5-51.1)
BUN 25 H mg/dl
(7-17)
Glucose 166 H mg/dl
(70-99)
Ur Occult Blood Reflex 1+ A
(Negative)
Leukocyte Esterase Rfl Trace A
(Negative)
Urine RBC 11-15 A /HPF
(0-2)
Urine Bacteria (Reflex) Few A
(Negative)
01/27/24 04:04
01/27/24 04:43
Vital Signs
Initial and Last Documented VS:
Initial Vital Signs
Temp Pulse Resp BP Pulse Ox
98.3 F 72 28 160/109 96
01/27/24 03:18 01/27/24 03:18 01/27/24 03:18 01/27/24 03:18 01/27/24 03:18
Last Documented Vital Signs
Temp Pulse Resp BP Pulse Ox
98.3 F 66 17 177/87 95
01/27/24 03:18 01/27/24 08:06 01/27/24 08:06 01/27/24 08:06 01/27/24 08:06
<Melissa Ponce DO - Last Filed: 01/27/24 06:28>
MDM/Problems Addressed
Differential Diagnosis Includes:
Concern for acute renal colic on the left. Other consideration is exacerbation of chronic low back pain, diverticulitis, UTI/pyelonephritis.
Will medicate for pain and nausea, initiate IV fluids. Will check labs and will plan for CT abdomen pelvis.
Chronic conditions affecting care: Other (History of kidney stones, history of chronic back pain/narcotic dependent)
Acute Exacerbation and/or Progression of Chronic Illness: Other (Left ureteric stone with moderate hydronephrosis.)
<Melissa Ponce DO - Last Filed: 01/27/24 06:28>
*Radiology
Radiology exam reviewed: radiology read reviewed
*Pulse Oximetry
Patient hypoxic: no
*Critical Care Note
Total Time (30-74mins, 75-104mins- exclusive of procedures): Not Applicable
<Melissa Ponce DO - Last Filed: 01/27/24 06:28>
Update Note
Update Note:
01/27/2024 0622 AM
Patient continues with significant left flank pain, persistent nausea, dry heaves despite an IV dose of Dilaudid, IV dose of Toradol which has afforded only minimal temporary improvement in pain.
She remains afebrile but labs remarkable for moderately elevated white blood cell count of 19.3. Over the past year or 2 she has noted to have somewhat persistently moderately elevated white blood cell count.
Chemistries are unremarkable with normal renal function.
CAT scan, preliminarily read by myself shows 6.5 mm stone mid to proximal ureter with moderate hydronephrosis on the left. Awaiting official radiology results.
She has been given an additional IV dose of Dilaudid as well as Reglan for nausea and will continue IV fluids.
Urinalysis is pending.
Could consider IV lidocaine for renal colic but if we are unable to manage patient's pain we will plan to consult urology. Patient known to Dr. Platt.
<Juan Luis David, DO - Last Filed: 01/27/24 08:57>
Update Note
Update Note:
01/27/2024 0622 AM
Patient continues with significant left flank pain, persistent nausea, dry heaves despite an IV dose of Dilaudid, IV dose of Toradol which has afforded only minimal temporary improvement in pain.
She remains afebrile but labs remarkable for moderately elevated white blood cell count of 19.3. Over the past year or 2 she has noted to have somewhat persistently moderately elevated white blood cell count.
Chemistries are unremarkable with normal renal function.
CAT scan, preliminarily read by myself shows 6.5 mm stone mid to proximal ureter with moderate hydronephrosis on the left. Awaiting official radiology results.
She has been given an additional IV dose of Dilaudid as well as Reglan for nausea and will continue IV fluids.
Urinalysis is pending.
Could consider IV lidocaine for renal colic but if we are unable to manage patient's pain we will plan to consult urology. Patient known to Dr. Platt.
Care of patient was transitioned pending reassessment after pain management. Patient requiring multiple doses of Dilaudid. Case with urology given location and size of the stone, will admit for stent placement
ED Attending Note
<Melissa Ponce, DO - Last Filed: 01/27/24 06:28>
-
Portions of this chart may have been created with voice recognition software.� Occasional wrong word or��sound alike� substitutions may have occurred due to the inherent limitations of voice recognition software.
Discharge Plan
Departure
Condition: Fair
Discharge Problem:
intractable renal colic, significant leukocytosis, obstructing 7 mm stone proximal L ureter
Prescriptions:
No Action
cetirizine 10 MG tablet
10 mg PO HS
rizatriptan [Maxalt-PUMP OPERATOR] 10 MG tablet,disintegrating
10 mg PO DAILYPRN PRN (Reason: migraines)
levocetirizine [Xyzal] 5 MG tablet
5 mg PO HS
diazepam 2 MG tablet
4 mg PO HS
atorvastatin [Lipitor] 20 mg Tablet
20 mg PO HS
Aimovig Autoinjector 140 mg/mL auto-injector
140 mg SC Q28D
Patient Comments:
10/29/2023, per pt., she takes this med. on the first of the month.
oxycodone-acetaminophen 10-325 mg tablet
1 tab PO 5/D PRN (Reason: moderate pain)
propranolol 80 mg capsule,extended release 24hr
400 mg PO HS
Nurtec ODT 75 mg tablet,disintegrating
75 mg PO DAILY PRN (Reason: migraine)
ibuprofen 200 mg tablet
800 mg PO DAILY
polyethylene glycol 3350 [Miralax] 17 gram Powder In Packet
17 g PO DAILY
Patient Comments:
10/29/2023, 1 tsp per pt.
estradiol 0.01 % (0.1 mg/gram) Cream
1 g VAGINAL .2 TIMES A WEEK PRN (Reason: vaginal area)
ondansetron 4 mg Tablet,Disintegrating
4 mg PO Q4HPRN PRN (Reason: nausea/vomiting)
clobetasol-emollient 0.05 % Cream
1 applic TOPICAL .2 TIMES A WEEK PRN (Reason: vaginal soreness)
Patient Comments:
10/29/2023, pt. applies this med. after she applies her Estradiol cream.
cholecalciferol (vitamin D3) 50 mcg (2,000 unit) Tablet
50 mcg PO HS
budesonide 0.5 mg/2 mL Suspension For Nebulization
0.5 mg irrigation DAILY
Patient Comments:
10/29/2023, pt. uses this med. for nasal irrigation.
diltiazem HCl [Cartia XT] 120 mg Capsule,Extended Release 24hr
120 mg PO DAILY Qty: 30 1RF
Referrals:
Vivian Acevedo PA-C [Family Provider] -
Interventions
Interventions:
*Risk Screen - Suicide Last Done: 01/27/24 03:18
*General Assessment Last Done: 01/27/24 03:18
*Neglect/Abuse Screening Last Done: 01/27/24 03:18
ED- Fall Risk Assessment Last Done: 01/27/24 03:18
*ED COVID-19 Vaccine History Last Done: 01/27/24 03:18
GC-Gdntsq-Mghwqxqsmk Assessment Last Done: 01/27/24 05:23
ED-Female Genitourinary Assessment Last Done: 01/27/24 05:23
Discharge Date and Time
Print Language: KITTITIAN
[2024-01-27] MEDS: DILAUDID 1 MG IV ×7 (04:25→22:07)
[2024-01-27] MEDS: NSS 1000 IV (04:26)
[2024-01-27 05:10] LABS: ALT (SGPT) 20 U/L (0-35); AST (SGOT) 23 U/L (14-36); Albumin 4.5 g/dl (3.5-5.0); Alkaline Phosphatase 121 U/L (38-126); Blood Urea Nitrogen 25 mg/dl (7-17); Calcium 10.1 mg/dl (8.4-10.2); Carbon Dioxide 25 mmol/L (22-30); Chloride 105 mmol/L (98-107); Estimated Creatinine Clearance 87 ml/min; Glucose 166 mg/dl (70-99); Potassium 3.6 mmol/L (3.5-5.1); Sodium 139 mmol/L (135-145); Total Bilirubin 0.8 mg/dl (0.2-1.3); Total Protein 7.2 g/dl (6.3-8.2); eGFR > 60.00
[2024-01-27] MEDS: TORADOL 30 MG IV (05:15)
[2024-01-27] MEDS: REGLAN 10 MG IV (06:10)
[2024-01-27 07:37] LABS: Urine Albumin Trace (Neg - Trace); Urine Bilirubin Negative (Negative); Urine Character Clear (Clear); Urine Color Yellow; Urine Glucose Negative (Negative); Urine Ketone Negative (Negative); Urine Leukocyte Trace (Negative); Urine Nitrite Negative (Negative); Urine Occult Blood 1+ (Negative); Urine Specific Gravity 1.015 (<1.030); Urine Urobilinogen Negative (Neg - 1+)
[2024-01-27 07:55] LABS: Urine Squamous Cell 16-20 /LPF (Few)
[2024-01-27 07:56] LABS: Urine Urothelial Cell 0-2 /LPF (FEW)
[2024-01-27 07:57] LABS: Urine Bacteria Few (Negative)
--- NOTE | 2024-01-27 10:23 | HPS.HSE ---
Family Physician
-
Family Physician: Vivian Acevedo, HUDSON
Chief Complaint
-
Left flank pain
History of Present Illness
63-year-old female with a past medical history of chronic back pain on chronic opioids, migraine headache, paroxysmal atrial fibrillation not on anticoagulation, hyperlipidemia, kidney stones, and hypertension presents with intermittent left flank
pain. Patient's left flank pain began about a week ago, starts in her left lower back and wraps around her left side to her left abdomen. Associated symptoms include migraine headache, nausea and vomiting. Patient denies fever, denies dysuria.
No chest pain, no shortness of breath.
Medical History
Past Medical History
Past Medical History: Reports Other
Additional Past Medical History:
Paroxysmal atrial fibrillation during hospitalization October 2023
Hyperlipidemia
Migraine headache
Kidney stones
Chronic sinusitis
Chronic back pain on chronic opioids
Right lower lobe pneumonia with effusion requiring chest tube in October 2023
Past Surgical History: Reports Other
Additional Past Surgical History:
x 2
ELIZABETH-BSO
Sinus Surgery
L4-L5 rhizotomy
Social History
Tobacco: Non-smoker
Alcohol: Occasional
Drug: None
Family History
Family History: Not pertinent
Allergies / Home Medications
Allergies reflects when Allergies were last updated in [employer].
Home Medications with original date entered in [employer]
Allergy/Medication List:
Allergies
Allergy/AdvReac Type Severity Reaction Status Date / Time
prochlorperazine maleate Allergy lock jaw Verified 01/27/24 03:17
[From Compazine]
trimethobenzamide HCl Allergy lock jaw Verified 01/27/24 03:17
[From Tigan]
Review of Systems
-
A 12 point ROS was completed and negative except as noted: Yes
Physical Exam
Vital Signs
Vital Signs
Temp Pulse Resp BP Pulse Ox
98.3 F 63 17 180/94 96
01/27/24 03:18 01/27/24 09:50 01/27/24 09:50 01/27/24 09:50 01/27/24 09:50
Physical Exam
General: No Apparent Distress and Other (Appears to not feel well)
HEENT: NormoCephalic, Anicteric and Moist mucous membranes
Respiratory: Clear
Cardiac: S1/S2 and Regular Rhythm
GI: Soft and Tender (Tender at left flank and left lower quadrant)
Musculoskeletal: No Clubbing and No Cyanosis
Skin: Warm and Dry
Neuro: Awake, Alert and Oriented
Psych: Calm
Laboratory Results
-
01/27/24 04:04
01/27/24 04:43
Laboratory Results
Total Bilirubin 0.8 mg/dl (0.2-1.3) 01/27/24 04:43
AST 23 U/L (14-36) 01/27/24 04:43
ALT 20 U/L (0-35) 01/27/24 04:43
Alkaline Phosphatase 121 U/L (38-126) 01/27/24 04:43
Impression/Plan
-
HPI: 63-year-old female with a past medical history of chronic back pain on chronic opioids, migraine headache, paroxysmal atrial fibrillation not on anticoagulation, hyperlipidemia, kidney stones, and hypertension presents with intermittent left
flank pain. Patient's left flank pain began about a week ago, starts in her left lower back and wraps around her left side to her left abdomen. Associated symptoms include nausea and vomiting. Patient denies fever, denies dysuria. No chest pain,
no shortness of breath.
#Left ureteral stone with hydronephrosis
Urology has been notified, for probable OR today for stent placement
Treat with IV Rocephin, IV fluids, pain meds, follow-up on urine cultures
Trend fever and white count
#Nausea and vomiting
Antiemetics as needed
#Chronic back pain on chronic opioids
Continue home oxycodone 5 times a day
#Migraine headaches
Continue Maxalt as needed
#Incidental right renal cyst
Monitor
#Fatty liver
Monitor
#Paroxysmal atrial fibrillation
She was discharged on Eliquis in October 2023, she is no longer on Eliquis
Continue diltiazem and propranolol for rate control
#Benign essential hypertension
Continue diltiazem and propranolol
#Hyperlipidemia
Continue statin
#Obesity due to excess calories
Affects all aspects of care
DVT prophylaxis�subcu Lovenox
Full code
Total time spent to see the patient on the floor, examine the patient, review data and lab results, discuss treatment plan with patient, nursing staff around 77 minutes.
[2024-01-27] MEDS: STERILE WATER FOR INJECTION 10 ML IV (11:24)
[2024-01-27] MEDS: ROCEPHIN 1000 MG IV (11:24)
--- NOTE | 2024-01-27 11:54 | CONS.URO ---
Consultation
-
Date/Time Consultation Requested: 01/27/24
Date/Time Consultation Performed: 01/27/24
Requesting Provider: ER
Performing Provider: Amanda
Reason for Consultation: obstructing left ureteral stone, intractable renal colic
Medical History
History of Present Illness
63F w/ prior urologic history of left URS/LL/stone extraction/stent placement (w/ Dr. Platt in 2018) presents w/ persistent left flank pain w/ associated nausea and dry heaves.
Left flank pain w/ radiation to LLQ - feels similar to prior episodes of renal colic per patient.
Onset of pain ~1 week ago - more moderate in nature at that time.
Denies F/C, dysuria, hematuria.
Admitted 10/2023 w/ RLL pneumonia complicated by pleural effusion requiring CT insertion.
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
Past Medical History
Past Medical History: Arrhythmia (pAF (10/2023)), Hypercholesterolemia and Other (migraines, kidney stones, chronic sinusitis, chronic back pain - narcotic dependent)
Past Surgical History: and Urological (left URS/LL/stone extraction/stent placement (2017))
Social History
Tobacco: Non-smoker
Alcohol: None
Drug: None
Personal:
Living: With Family
Employment: Employed
Family History
Family History: Reviewed & Not Pertinent
Allergies/Home Medications
Allergies
Allergy/AdvReac Type Severity Reaction Status Date / Time
prochlorperazine maleate Allergy lock jaw Verified 01/27/24 03:17
[From Compazine]
trimethobenzamide HCl Allergy lock jaw Verified 01/27/24 03:17
[From Tigan]
Home Medications
�Medication �Instructions �Recorded �Confirmed �Type
cetirizine 10 mg tablet 10 mg PO HS Allergies 07/30/11 01/27/24 History
levocetirizine 5 mg tablet (Xyzal) 5 mg PO HS Allergies 04/06/17 01/27/24 History
diazepam 2 mg tablet 4 mg PO HS Sleep 06/04/18 01/27/24 History
atorvastatin 20 mg tablet (Lipitor) 20 mg PO HS High Cholesterol 06/05/22 01/27/24 History
erenumab-aooe 140 mg/mL 140 mg SC Q28D Autoimmune Disorder 06/05/22 01/27/24 History
subcutaneous auto-injector
(Aimovig Autoinjector)
oxycodone-acetaminophen 10 mg-325 1 tab PO 5/D PRN severe migraines 08/18/23 01/27/24 History
mg tablet
propranolol 80 mg capsule,24 400 mg PO HS Blood Pressure 08/18/23 01/27/24 History
hr,extended release
rimegepant 75 mg disintegrating 75 mg PO DAILYPRN PRN migraine 08/18/23 01/27/24 History
tablet (Nurtec ODT)
cholecalciferol (vitamin D3) 50 50 mcg PO HS Supplement 10/29/23 01/27/24 History
mcg (2,000 unit) tablet
clobetasol-emollient 0.05 % 1 applic topical DAILYPRN PRN 10/29/23 01/27/24 History
topical cream vaginal soreness
estradiol 0.01% (0.1 mg/gram) 1 g vaginal DAILYPRN PRN vaginal 10/29/23 01/27/24 History
vaginal cream area
ondansetron 4 mg disintegrating 4 mg PO Q4HPRN PRN nausea/vomiting 10/29/23 01/27/24 History
tablet
polyethylene glycol 3350 17 gram 8.5 g PO DAILY Constipation 10/29/23 01/27/24 History
oral powder packet (Miralax)
Patient Own Compoud Nasal Mist 2 spray intranasal DAILY 01/27/24 01/27/24 History
opjqjpqffh-peqdqgoknuqzz-llldbaiw 1 cap PO TIDPRN PRN migraines 01/27/24 01/27/24 History
50 mg-300 mg-40 mg capsule
diltiazem HCl 120 mg 120 mg PO DAILY heart condition 01/27/24 01/27/24 History
capsule,extended release 24 hr
(Cartia XT)
rizatriptan 10 mg disintegrating 0 mg PO .COMPLEX migraine 01/27/24 01/27/24 History
tablet (Maxalt-CHAIN PEGGER)
tramadol 50 mg tablet 50 mg PO BIDPRN PRN moderate pains 01/27/24 01/27/24 History
Review of Systems
-
History Source: Patient
A 12 point Review of Systems was completed except as noted: Yes
Physical Exam
Vital Signs
Vital Signs
Temp Pulse Resp BP Pulse Ox
98.3 F 77 18 115/68 95
01/27/24 03:18 01/27/24 11:25 01/27/24 11:25 01/27/24 11:25 01/27/24 11:25
Lab / Testing Results
Laboratory Results
01/27/24 04:04
01/27/24 04:43
Physical Exam
General: Well Developed, Well Nourished and Pain
HEENT: Normocephalic and Anicteric
Respiratory: Non Labored Respirations
Cardiac: S1/S2
Breast: Deferred by me
GI: Soft, Non Tender and Non Distended
Rectal: Deferred by Provider
Genito-urinary: No Costovertebral Tend
Musculoskeletal: No Edema
Skin: Warm and Dry
Neuro: AO x 3, No Motor Deficits and Nonfocal/Grossly Intact
Hematologic/Lymphatic: No Lymphadenopathy
Psych: Calm and Intact Judgement
Assessment / Plan
-
Obstructing left ureteral stone w/ hydronephrosis
Intractable left renal colic despite opioid analgesia (h/o chronic opiate use for back pain)
Leukocytosis
UA not indicative of UTI
WBC 19.3
Cr 0.5
CTAP w/ IV contrast => moderate left hydronephrosis secondary to 6 mm calculus in the proximal left ureter.
Detailed discussion including SDM had w/ patient regarding risks, benefits, alternatives, and potential complications of URS/LL/stone extraction/stent placement including but not limited to urosepsis, bleeding, ureteral/bladder injury, urinoma, risk
of ureteral stricture formation, need for additional procedures.
- To OR for left ureteroscopy/laser lithotripsy/stone extraction/stent placement (stent at minimum if clinically feasible)
- Surgical consent signed on chart in preop
- Left laterality marked
D/w patient in preop.
Data Reviewed
-
Total Time Spent with Patient (in minutes): 75
CT Scan: Image personally visualized and interpreted, Report Reviewed by Me, Discussed with Physician and Discussed with Patient
Lab Data: Labs Reviewed and Discussed with Physician
Old Records: Reviewed
[2024-01-27] MEDS: MIRALAX PO (13:08)
[2024-01-27] MEDS: NSS with KCL 20 MEQ 1000 IV (14:43)
--- NOTE | 2024-01-27 16:20 | W.IMMPOSTOP ---
Surgical Immed Post Op Note
-
Primary Surgeon: Amanda
Pre-op Diagnosis: Obstructing proximal left ureteral stone
Post-op Diagnosis: Same
Procedure Performed: cystoscopy, left ureteroscopy/laser lithotripsy/stone extraction/stent placement
Anesthesia Type: LMA
Specimen / Cultures: Stones/None
Estimated Blood Loss: Negligible
Drains: 4.7Fr x 22 cm JJ left ureteral stent
Complications: None
Operative Findings: Final KUB and cystoscopy confirming appropriate left ureteral stent position
D/w spouse post-op via telephone.
[2024-01-27] MEDS: DILAUDID 0.5 MG IV (16:38)
[2024-01-27] MEDS: MORPHINE SULFATE 1 MG IV (17:02)
[2024-01-27] MEDS: LOVENOX 40 MG SC (18:22)
[2024-01-27] MEDS: ULTRAM 50 MG PO (20:11)
[2024-01-27] MEDS: INDERAL LA 400 MG PO (22:09)
[2024-01-27] MEDS: VITAMIN D3 (cholecalciferol) 50 MCG PO (22:10)
[2024-01-27] MEDS: MELATONIN 6 MG PO (22:10)
[2024-01-27] MEDS: ZYRTEC 10 MG PO (22:10)
[2024-01-27] MEDS: LIPITOR 20 MG PO (22:10)
[2024-01-27] MEDS: VALIUM 4 MG PO (22:10)
[2024-01-28] MEDS: DILAUDID 1 MG IV ×4 (00:36→09:05)
--- NOTE | 2024-01-28 01:36 | PTCARENOTE ---
Upon start of shift, patient was in room in bed. Pain at a tolerable level at that moment. AAOX3. Pleasant. No c/o at current time. Call miller with in reach.
[2024-01-28] MEDS: NSS with KCL 20 MEQ 1000 IV (03:12)
[2024-01-28 03:14] VITALS: BP 162/91
[2024-01-28] MEDS: TYLENOL 650 MG PO (03:46)
--- NOTE | 2024-01-28 08:25 | W.PN.HOSP.TC ---
Today's Communication/Plan
-
Discharge today
Assessment / Plan
Assessment / Plan
HPI: 63-year-old female with a past medical history of chronic back pain on chronic opioids, migraine headache, paroxysmal atrial fibrillation not on anticoagulation, hyperlipidemia, kidney stones, and hypertension presents with intermittent left
flank pain. Patient's left flank pain began about a week ago, starts in her left lower back and wraps around her left side to her left abdomen. Associated symptoms include nausea and vomiting. Patient denies fever, denies dysuria. No chest pain,
no shortness of breath.
#Left ureteral stone with hydronephrosis
Appreciate urology input, s/p left ureteral stent placement 01/26
No fever, UA neg, will dc rocephin
Stable for dc, f/u w/ urology in office in 2 weeks
#Nausea and vomiting
Antiemetics as needed
#Chronic back pain on chronic opioids with dependence
Continue home oxycodone 5 times a day
#Migraine headaches
Continue Maxalt as needed
#Incidental right renal cyst
Monitor
#Fatty liver
Monitor
#Paroxysmal atrial fibrillation
She was discharged on Eliquis in October 2023, she is no longer on Eliquis
Continue diltiazem and propranolol for rate control
#Benign essential hypertension
Continue diltiazem and propranolol
#Hyperlipidemia
Continue statin
#Obesity due to excess calories
Affects all aspects of care
DVT prophylaxis�subcu Lovenox
Full code
Physical Exam
General: No Apparent Distress, obese
HEENT: NormoCephalic, Anicteric and Moist mucous membranes
Respiratory: Clear
Cardiac: S1/S2 and Regular Rhythm
GI: Soft and mildly tender
Musculoskeletal: No Clubbing and No Cyanosis
Skin: Warm and Dry
Neuro: Awake, Alert and Oriented
Psych: Calm
Anticipated Discharge: Today
Subjective/Interval History
-
Date of Service: January 28, 2024
Left flank pain resolved. C/o urethral irritation. No fever, no vomiting.
Objective Data
-
Labs:
Laboratory Results
01/28/24
08:09
WBC Pending
Hgb Pending
Hct Pending
Plt Count Pending
Sodium Pending
Potassium Pending
Chloride Pending
Carbon Dioxide Pending
BUN Pending
Creatinine Pending
Glucose Pending
Calcium Pending
Vital Signs:
Vital Signs
Temp Pulse Resp BP Pulse Ox
98.8 F 76 18 162/91 94
01/28/24 03:14 01/28/24 03:14 01/28/24 03:14 01/28/24 03:14 01/28/24 03:14
I&O
01/27/24 01/28/24 01/29/24
06:59 06:59 06:59
Intake Total 1000 / 1000 1934
Output Total 300 / 300
Balance 700 / 700 1934
[2024-01-28 08:45] VITALS: BP 131/74
[2024-01-28 09:01] VITALS: BP 131/74
[2024-01-28] MEDS: MIRALAX 17 GRAMS PO (09:09)
[2024-01-28] MEDS: ROCEPHIN 1000 MG IV (09:10)
[2024-01-28] MEDS: STERILE WATER FOR INJECTION 10 ML IV (09:10)
[2024-01-28 09:38] LABS: Hematocrit 34.4 % (37.0-47.0); Hemoglobin 11.9 g/dL (12.0-16.0); Mean Corp Hgb Conc. 34.6 g/dL (33.0-37.0); Mean Corpuscular Hgb 32.1 pg (27.0-31.0); Mean Corpuscular Volume 92.7 fL (81.0-99.0); Mean Platelet Volume 11.6 fL (7.4-10.4); Platelet Count 270 10^3/uL (130-400); Red Blood Cell Count 3.71 10^6/uL (4.20-5.40); Red Cell Dist. Width 12.6 % (11.5-14.5); White Blood Cell Count 14.2 10^3/uL (4.8-10.8)
[2024-01-28 09:44] LABS: Blood Urea Nitrogen 20 mg/dl (7-17); Calcium 9.3 mg/dl (8.4-10.2); Carbon Dioxide 23 mmol/L (22-30); Chloride 105 mmol/L (98-107); Estimated Creatinine Clearance 86 ml/min; Glucose 122 mg/dl (70-99); Magnesium 1.9 mg/dl (1.6-2.3); Potassium 4.1 mmol/L (3.5-5.1); Sodium 138 mmol/L (135-145); eGFR > 60.00
--- NOTE | 2024-01-28 10:51 | CM ---
Patient seen bedside with , initial assessment completed. Patient resides with her spouse in a two story home, two steps to enter. Patient reports she has two supportive adult sons. Patient denies the use of DME, VN, or SNF, reports she has a
walker at home from her father in law if ever needed. Patient confirms PCP [facility], pharmacy used [facility], confirms prescription coverage. Patient denies food, housing/utility, transportation insecurities. Patient denies needs
from CM at this time. CM will continue to follow for all discharge planning needs.
Plan; home no needs anticipated.
[2024-01-28] MEDS: PERCOCET 5/325 2 TABLET PO (12:28)
--- NOTE | 2024-01-28 13:18 | PN.CDI ---
CDI
- -
CDI:
Physician Documentation Request
Admit Date: 01/27/24 11:11
Dear Doctor Do,
Clinical Indicators:
Patient admitted with Left ureteral stone with hydronephrosis;s/p left ureteroscopy/laser lithotripsy/stone extraction/stent placement 01/26.
718 ED report, PMH includes chronic back pain- Narcotic dependent
01/26 H & P, 'Chronic back pain on chronic opioids Continue home oxycodone 5 times a day'
01/26 Urology consult, 'Intractable left renal colic despite opioid analgesia (h/o chronic opiate use for back pain)'
Based on the above, could you clarify in the progress notes, the appropriate diagnosis, if significant, that supports the above medication usage:
Opioid use with dependence
Opioid use only
Other, please specify
Use of terms such as suspected, likely, concern for, or probable (associated with a specific diagnosis that is being evaluated, monitored, or treated as if it exists) are acceptable and can be coded in the inpatient setting, when documented at the
time of discharge.
Thank you,
Aileen Baig RN BSN
CDI Specialist
available via tiger text
Please use your independent medical judgment in providing your response.
[2024-01-28 14:00] VITALS: BP 158/85
--- NOTE | 2024-01-28 14:17 | W.DCSUMMARY ---
Discharge Summary
Discharge Data
Date of Admission: 01/27/24
Date of Discharge: 01/28/24
-
Pending Results: No
Hospital Course
Discharge diagnosis:
Left ureteral stone with hydronephrosis
Nausea and vomiting
Chronic back pain on chronic opioids with dependence
Migraine headaches
Incidental right renal cyst
Fatty liver
Paroxysmal atrial fibrillation no longer on anticoagulation
Benign essential hypertension
Hyperlipidemia
Obesity due to excess calories
Consults: Urology
Procedures:
01/27/2024 left ureteral stent placement
CT abdomen and pelvis:
1. Moderate left hydronephrosis secondary to 6 mm calculus in the proximal left ureter.
2. Mild hepatic fatty infiltration.
3. Incidental right renal cyst and probable cysts as above.
4. Unchanged chronic compression deformity L1.
Hospital course:
63-year-old female with a past medical history of chronic back pain on chronic opioids, migraine headache, paroxysmal atrial fibrillation not on anticoagulation, hyperlipidemia, kidney stones, and hypertension presented with left-sided flank pain,
was found to have left ureteral stone with hydronephrosis. Patient was seen in conjunction with urology, she underwent left ureteral stent placement on 01/27/2024. Her urine analysis was negative. She did receive 2 doses of IV Rocephin for
prophylaxis.
By the following day, she felt better. She is medically stable and cleared by urology for discharge. She needs to follow-up with urology in the office in 2 weeks for stent removal.
Disposition: Home self-care
Discharge planning: Required 37-minute
Discharge Plan
-
Patient Disposition: Home (Routine Discharge)
Discharge Diagnosis/Procedures: Left ureteral stone with hydronephrosis status post left ureteral stent placement
Condition: Good
Diet: Low Fat and Low Cholesterol
Activity: As tolerated
Driving Restrictions: As prior to admission
Activity Restrictions/Additional Instructions:
Follow up with your PCP in 1 week, call for an appointment.
Please call Dr. Patel's office to schedule a stent removal appt (30 second procedure using local anesthetic performed in office) in 2 weeks.
Referrals:
Vivian Acevedo PA-C [Family Provider] - in one week
Damien Patel MD [Active] - in two weeks (Please call Dr. Patel's office to schedule a stent removal appt (30 second procedure using local anesthetic performed in office) in 2 weeks. )
Prescriptions:
Continued
cetirizine 10 MG tablet
10 mg PO HS
diazepam 2 MG tablet
4 mg PO HS
Patient Comments:
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
atorvastatin [Lipitor] 20 mg Tablet
20 mg PO HS
Aimovig Autoinjector 140 mg/mL auto-injector
140 mg SC Q28D
oxycodone-acetaminophen 10-325 mg tablet
1 tab PO 5/D PRN (Reason: severe migraines)
Patient Comments:
pdmp warehouse picker on 01/06/24 #150
propranolol 80 mg capsule,extended release 24hr
400 mg PO HS
Nurtec ODT 75 mg tablet,disintegrating
75 mg PO DAILYPRN PRN (Reason: migraine)
polyethylene glycol 3350 [Miralax] 17 gram Powder In Packet
8.5 g PO DAILY
estradiol 0.01 % (0.1 mg/gram) Cream
1 g VAGINAL DAILYPRN PRN (Reason: vaginal area)
ondansetron 4 mg Tablet,Disintegrating
4 mg PO Q4HPRN PRN (Reason: nausea/vomiting)
clobetasol-emollient 0.05 % Cream
1 applic TOPICAL DAILYPRN PRN (Reason: vaginal soreness)
cholecalciferol (vitamin D3) 50 mcg (2,000 unit) Tablet
50 mcg PO HS
Patient Own Compoud Nasal Mist
2 spray intranasal DAILY
Rx Instructions:
contain budesonide and saline from the ent
tramadol 50 mg Tablet
50 mg PO BIDPRN PRN (Reason: moderate pains)
rizatriptan [Maxalt-OUTPATIENT PSYCHIATRIST] 10 mg Tablet,Disintegrating
0 mg PO .COMPLEX
Rx Instructions:
take 1 tab at onset of headache; if no relief may repeat 1 tab after at least 2 hrs; max = 3 tabs/24 hr
doppxdimyg-hqfovuydrlksa-jlle 50-300-40 mg capsule
1 cap PO TIDPRN PRN (Reason: migraines)
diltiazem HCl [Cartia XT] 120 mg capsule,extended release 24hr
120 mg PO DAILY
melatonin 3 mg Tablet,Disintegrating
6 mg PO HS
Discontinued
levocetirizine [Xyzal] 5 MG tablet
5 mg PO HS
Discharge Orders:
Discharge Patient (As Directed); Ordered 01/28/24
Ordered By: Hector Platt
Discharge Date and Time
Discharge Date/Time: 01/28/24 14:16
Print Language: YORUBA
== END 2024-01-28 14:16 | disposition home or self-care (01) | DRG 660 ==
LOC: 4 WEST ACU 11:11
PROVIDERS: ADMITTING PHYSICIAN Family Medicine; CONSULT PHYSICIAN Surgery; EMERGENCY PHYSICIAN Emergency Medicine; FAMILY PHYSICIAN Physician Assistant
PROC: 0TC78ZZ Extirpation of Matter from Left Ureter, Via Natural or Artificial Opening Endoscopic (ICD-10-PCS; 2024-01-27)
PROC: 0T778DZ Dilation of Left Ureter with Intraluminal Device, Via Natural or Artificial Opening Endoscopic (ICD-10-PCS; 2024-01-27)
DX: N13.2 Hydronephrosis with renal and ureteral calculous obstruction (principal); F11.20 Opioid dependence, uncomplicated; G89.29 Other chronic pain; G43.909 Migraine, unspecified, not intractable, without status migrainosus; N28.1 Cyst of kidney, acquired; I48.0 Paroxysmal atrial fibrillation; I10 Essential (primary) hypertension; E66.09 Other obesity due to excess calories; M54.9 Dorsalgia, unspecified; Z68.31 Body mass index [BMI] 31.0-31.9, adult
CPT/HCPCS: 74018; 74177; 76000; 80048; 80053; 81003; 81015; 83735; 85025; 85027; 87040; 96361; 96374; 96375; 96376; 99285; C1769; C1894; C2617; Q9967

== ENCOUNTER → 2024-09-01 14:33 | Outpatient (REF) | payer BC, SELFPAY | LOC: HWRAD 14:33 | PROVIDERS: ATTENDING PHYSICIAN Surgery; FAMILY PHYSICIAN Family Medicine | DX: N20.0 Calculus of kidney (principal) | CPT/HCPCS: 76775 ==